=== PATIENT | female | born 1970 | race Caucasian/White ===

== ENCOUNTER 2016-03-25 05:55 | Observation (INO) | payer BC ==
[~2016-03-25] VITALS: Ht 165.1 cm; Wt 65.0 kg
[~2016-03-25 05:55] MED LIST: CHOL50006 PO; CLON1TAB PO; COPA20KI SQ; DIGO0.12 PO; EFFE150C PO; HYDR2TAB PO; LACT10SO27 PO; MIDO10TA PO
[2016-03-25 06:04] VITALS: BP 111/74; PULSE 71; RESP 16; TEMP 98; O2SAT 98
[2016-03-25] MEDS ORDERED: SODIUM CHLORIDE 0.9% FLUSH 5 ML FLUSH IVF PRN ×2 (06:30→11:00)
[2016-03-25] MEDS ORDERED: ASPIRIN 81 MG CHEW TAB PO ONE (06:30)
[2016-03-25] MEDS ORDERED: HYDROmorphone HCL PF 1 MG/ML VIAL IV PUSH ONE (06:30)
[2016-03-25 06:46] VITALS: BP_SYST 107; BP_SYST 111; BP_DIAS 69; BP_DIAS 73; RESP 16; O2SAT 99
[2016-03-25 06:49] LABS: AUTOMATED NEUTROPHIL # 1.5 TH/MM3 (1.8-7.7); BASOPHIL % 0.3 % (0.0-2.0); EOSINOPHIL # 0.3 TH/MM3 (0-0.4); EOSINOPHIL % 6.9 % (0.0-4.0); HEMATOCRIT 36.4 % (35.0-46.0); HEMO FLAGS DIFF FINAL; LYMPH % 40.5 % (9.0-44.0); LYMPHOCYTE # 1.5 TH/MM3 (1.0-4.8); MEAN CELL VOLUME 82.9 FL (80.0-100.0); MEAN CORPUSCULAR HEMOGLOBIN 28.2 PG (27.0-34.0); MONO % 12.2 % (0.0-8.0); NEUT % 40.1 % (16.0-70.0); PLATELET COUNT 139 TH/MM3 (150-450); RED BLOOD COUNT 4.39 MIL/MM3 (4.00-5.30); RED CELL DISTRIBUTION WIDTH 13.1 % (11.6-17.2); WHITE BLOOD COUNT 3.7 TH/MM3 (4.0-11.0)
[2016-03-25 06:58] LABS: APTT (PATIENT) 25.1 SEC (24.3-30.1); PROTHROMBIN TIME - PATIENT 10.7 SEC (9.8-11.6)
[2016-03-25 07:00] VITALS: BP 108/77; PULSE 69; RESP 16; O2SAT 96
[2016-03-25 07:05] LABS: ALT (GPT) 18 U/L (10-53); ANION GAP 5 MEQ/L (5-15); AST (GOT) 12 U/L (15-37); BLOOD UREA NITROGEN 14 MG/DL (7-18); CHLORIDE 108 MEQ/L (98-107); GLOMERULAR FILTRATION RATE 115 ML/MIN (>89); MAGNESIUM 2.2 MG/DL (1.5-2.5); POTASSIUM 3.7 MEQ/L (3.5-5.1); SODIUM (NA) 143 MEQ/L (136-145)
[2016-03-25 07:09] LABS: ALKALINE PHOSPHATASE 87 U/L (45-117); TOTAL BILIRUBIN ADULT 0.1 MG/DL (0.2-1.0)
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
--- NOTE | 2016-03-25 07:46 | RADRPT ---
EXAM DATE/TIME: 03/25/2016 07:27 [facility] COMPARISON: CHEST SINGLE AP, November 22, 2015, 5:18. INDICATIONS : Chest pains. MEDICAL HISTORY : Congestive heart failure. SURGICAL HISTORY : Cardiac pacer placed about 8 years ago. ENCOUNTER: Initial ACUITY: 1 day PAIN SCORE: 6/10 LOCATION: Bilateral chest FINDINGS: A single view of the chest demonstrates the lungs to be symmetrically aerated without evidence of mas s, infiltrate or effusion. The cardiomediastinal contours are unremarkable. Osseous structures are intact. Right subclavian transvenous pacer again noted with lead tips in the right atrium and right ventricul ar apex region, unchanged. CONCLUSION: No evidence of acute cardiopulmonary disease. Manjeet Whelan MD on March 25, 2016 at 7:44 Board Certified Radiologist. This report was verified electronically.
[2016-03-25] MEDS ORDERED: LOVA20TA PO (09:08)
[2016-03-25] MEDS ORDERED: PLAQ200T PO (09:08)
[2016-03-25] MEDS ORDERED: VITA50TA10 PO (09:08)
[2016-03-25] MEDS ORDERED: DIGOXIN 0.125 MG TAB PO SCH (10:30)
[2016-03-25] MEDS ORDERED: GLATIRAMER 20 MG SQ SCH (10:30)
[2016-03-25] MEDS ORDERED: HYDROmorphone HCL 2 MG TAB PO PRN (10:30)
--- NOTE | 2016-03-25 10:54 | EKG ---
Date Performed: 03/25/2016 Time Performed: 06:39:27 PTAGE: 45 years EKG: ELECTRONIC ATRIAL PACEMAKER POSSIBLE RIGHT VENTRICULAR CONDUCTION DELAY ABNORMAL RHYTHM ECG PREVIOUS TRACING : 11/22/2015 05.30 Compared to prior tracing no significant change DOCTOR: Anthony Louis Interpretating Date/Time 03/25/2016 10:52:54
[2016-03-25 11:00] VITALS: BP 110/68; PULSE 87; RESP 15; O2SAT 97
[2016-03-25] MEDS ORDERED: PRAVASTATIN SOD 20 MG TAB PO SCH (11:00)
[2016-03-25] MEDS ORDERED: HYDROmorphone HCL PF 1 MG/ML VIAL IV ONE (11:45)
[2016-03-25] MEDS ORDERED: SODIUM CHLORID 0.9% 500 ML INJ 500 ML IV SCH (11:45)
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
[2016-03-25] MEDS ORDERED: ONDANSETRON HCL 4 MG/2 ML VIAL IV PRN (12:00)
--- NOTE | 2016-03-25 12:16 | HHI.DCPOC ---
Discharge Care Plan Diagnosis: (1) Chest pain (2) Pacemaker (3) Multiple sclerosis Goals to Promote Your Health * To prevent worsening of your condition and complications * To maintain your health at the optimal level Directions to Meet Your Goals Take your medications as prescribed Follow your dietary instruction Follow activity as directed Keep your appointments as scheduled Take your immunizations and boosters as scheduled If your symptoms worsen call your PCP, if no PCP go to Urgent Care Center or Emergency Room Smoking is Dangerous to Your Health. Avoid second hand smoke Call the 24-hour hour crisis hotline for domestic abuse at Min Alvarenga Mar 25, 2016 12:16
[2016-03-25] MEDS ORDERED: MIDODRINE 5 MG TAB PO SCH (13:00)
--- NOTE | 2016-03-25 20:16 | EKG ---
Date Performed: 03/25/2016 Time Performed: 09:20:49 PTAGE: 45 years EKG: ATRIAL PACING Compared to prior tracing no significant change ABNORMAL RHYTHM ECG PREVIOUS TRACING : 03/25/2016 06.39 DOCTOR: Anthony Louis Interpretating Date/Time 03/25/2016 20:16:01
[2016-03-25] MEDS ORDERED: SODIUM CHLORIDE 0.9% FLUSH 5 ML FLUSH IVF SCH (21:00)
[2016-03-25] MEDS ORDERED: VENLAFAXINE HCL XR 75 MG CAP PO SCH (21:00)
[2016-03-25] MEDS ORDERED: clonazePAM 1 MG TAB PO SCH (21:00)
[2016-08-13] MEDS ORDERED: CYAN100025 SL (14:01)
[2016-08-13] MEDS ORDERED: D-20TAB3 PO (14:01)
[2016-08-13] MEDS ORDERED: FURO1TAB62 PO (14:01)
== END 2016-03-25 14:25 | disposition home or self-care (01) ==
LOC: NEPE 05:55 → NEDA 08:01
PROVIDERS: ADMIT Internal Medicine Cardiovascular Disease; ATTEND Internal Medicine Cardiovascular Disease
DX: R07.89 Other chest pain (principal); I48.91 Unspecified atrial fibrillation; I47.1 Supraventricular tachycardia; G35 Multiple sclerosis; E78.00 Pure hypercholesterolemia, unspecified; G40.909 Epilepsy, unspecified, not intractable, without status epilepticus; M54.9 Dorsalgia, unspecified; M54.2 Cervicalgia; G89.29 Other chronic pain; H91.90 Unspecified hearing loss, unspecified ear; K21.9 Gastro-esophageal reflux disease without esophagitis; M06.9 Rheumatoid arthritis, unspecified; Z85.43 Personal history of malignant neoplasm of ovary; Z95.0 Presence of cardiac pacemaker; Z86.73 Personal history of transient ischemic attack (TIA), and cerebral infarction without residual deficits; Z87.11 Personal history of peptic ulcer disease
CPT/HCPCS: 71010; 80053; 83690; 83735; 84484; 85025; 85610; 85730; 93005; 96374; 99285; G0378; J1170

== ENCOUNTER → 2016-05-06 | Outpatient (CLI) | payer OTHER ==
[~2016-05-06] MED LIST changes: +CYAN100025 SL; +D-20TAB3 PO; +FURO1TAB62 PO; +GABA600T PO; +LEVE500 PO; +LOVA20TA PO; +PLAQ200T PO; +VITA50TA10 PO
--- NOTE | 2016-05-06 17:30 | RADRPT ---
EXAM DATE/TIME: 05/06/2016 14:31 [facility] COMPARISON: No previous studies available for comparison. INDICATIONS : Left knee pain after fall. MEDICAL HISTORY : Carcinoma, ovarian. Multiple sclerosis. SURGICAL HISTORY : Pacemaker. Appendectomy. Hysterectomy. Cholecystectomy. ENCOUNTER: Initial ACUITY: 2 weeks PAIN SCORE: 3/10 LOCATION: Left knee. TECHNIQUE: Multiplanar, multisequence MRI examination was performed without contrast. FINDINGS: CRUCIATE LIGAMENTS: ACL and PCL are intact. MENISCI: Medial and lateral menisci are intact. COLLATERAL LIGAMENTS: MCL and LCL complexes are intact. BONE/CARTILAGE: There is focal T2 prolongation in the marrow of the anterior proximal tibia characteristic of a bone contusion. No fracture line seen. There is also focal thinning and T2 prolongation in the patellar cartilage of the lateral facet. No signal abnormality in the marrow of the patella. MISCELLANEOUS: No evidence of joint effusion. Extensor mechanism is intact. CONCLUSION: 1. Bone bruise in the proximal anterior tibia. 2. Focal cartilage abnormality lateral patellar facet. 3. The patellar tendon is normal in thickness and has normal signal characteristics. Eyal Kendall MD on May 06, 2016 at 17:16 Board Certified Radiologist. This report was verified electronically.
--- NOTE | 2016-05-06 17:34 | RADRPT ---
EXAM DATE/TIME: 05/06/2016 15:05 [facility] COMPARISON: No previous studies available for comparison. INDICATIONS : Left wrist pain after fall. Broken scaphoid. MEDICAL HISTORY : Carcinoma, ovarian. Multiple sclerosis. SURGICAL HISTORY : Pacemaker. Appendectomy. Hysterectomy. Cholecystectomy. ENCOUNTER: Initial ACUITY: 2 weeks PAIN SCORE: 3/10 LOCATION: Left wrist. TECHNIQUE: Multiplanar multisequence MRI examination of the wrist was performed without contrast. FINDINGS: The carpus is in normal alignment and there is normal signal in the carpal bones. In particular, no focal signal abnormality seen within the scaphoid. There is some fluid in the region of the scapholu fer ligament with some minimal widening suggesting scapholunate ligament tear. There is also a foca l fluid collection about the volar aspect of the distal radius suggesting focal tendinopathy. The di stal radius and Sugey have normal signal characteristics without evidence of fracture. No T2 prolonga tion within the carpal tunnel. CONCLUSION: 1. No evidence of carpal fracture. 2. Possible scapholunate ligament tear 3. Focal fluid along the distal volar radius suggesting tendinopathy. Eyal Kendall MD on May 06, 2016 at 17:28 Board Certified Radiologist. This report was verified electronically.
== END ==
LOC: HRAD 12:57
DX: M25.562 Pain in left knee (principal); M25.532 Pain in left wrist; W19.XXXA Unspecified fall, initial encounter
CPT/HCPCS: 73221; 73721

== ENCOUNTER 2016-06-06 13:44 | Inpatient (IN) | payer BC ==
[2016-06-06] VITALS (12 sets, daily range): BP systolic 98–160; BP diastolic 59–113; PULSE 69–86; RESP 16–18; TEMP 98–98.7; O2SAT 98–100
[~2016-06-06] VITALS: Ht 167.6 cm; Wt 66.1 kg
[~2016-06-06 13:44] MED LIST changes: -CYAN100025 SL; -D-20TAB3 PO; -FURO1TAB62 PO; -GABA600T PO; -LEVE500 PO
[2016-06-06] MEDS ORDERED: LORazepam 2 MG/ML VIAL ONE (13:51)
[2016-06-06] MEDS ORDERED: SUCCINYLCHOLINE CHLORIDE 200 MG/10 ML VIAL ONE (13:51)
[2016-06-06] MEDS ORDERED: SODIUM CHLOR 0.9% 1000 ML INJ 1,000 ML IV ONE ×2 (13:54→15:15)
[2016-06-06] MEDS ORDERED: levETIRAcetam INJ 500 MG in SODIUM CHLORIDE 0.9% INJ 100 ML IV ONE (14:00)
[2016-06-06] MEDS ORDERED: SODIUM CHLORIDE 0.9% FLUSH 10 ML FLUSH IVF PRN (14:00)
[2016-06-06] MEDS ORDERED: LORazepam 2 MG/ML VIAL IVS ONE (14:00)
[2016-06-06] MEDS ORDERED: PROPOFOL 1000 MG/100 ML INJ 100 ML ONE (14:01)
--- NOTE | 2016-06-06 14:19 | PD ---
HPI Chief Complaint: multiple seizures Time Seen by Provider: 13:53 Travel History International Travel<30 days: No Contact w/Intl Traveler<30days: No Traveled to known affect area: No History of Present Illness HPI 45-year-old female with history of seizures, MS, previous TIA, presents to the ER today brought in by EMS because her son states that they were hanging a picture when she complained of chest pain, collapsed, had a seizure, and according to EMS had 2 additional seizures in route, had been given a total 4 of Ativan en route. She had a witnessed seizure in the ER and was given additional Ativan. She was found to have allergies to Tegretol, phenobarbital, and Dilantin and was put in for a Keppra IV bolus. She was found not to have a gag reflex at this point and was an awake, patient was intubated for airway protection. Modifying Factors: None Associated Signs & Symptoms: Multiple seizures, status epilepticus, intubated Risk Factors: History of seizures PFSH Past Medical History Hx Anticoagulant Therapy: No Anemia: Yes Arthritis: No Asthma: No Atrial Fibrillation: Yes Autoimmune Disease: Yes (MS 2006/ has undergone plasma exchange therapy) Blood Disorders: No Anxiety: Yes Depression: Yes Heart Rhythm Problems: Yes (severe bradicardia, pacer placed/ vagal nerve dysfunction/) Cancer: Yes (uterine and ovarian) Cardiac Catheterization: No Cardiovascular Problems: Yes High Cholesterol: Yes Chemotherapy: No Chest Pain: No Congestive Heart Failure: Yes COPD: No Cerebrovascular Accident: Yes Diabetes: No Diminished Hearing: Yes (HEARING AIDS) Endocrine: No GERD: Yes Glaucoma: No Genitourinary: Yes Headaches: Yes Hepatitis: No Hiatal Hernia: No Hypertension: No Immune Disorder: Yes (MS) Implanted Vascular Access Dvce: Yes (PACEMAKER,MEDTRONIC ) Kidney Stones: No Musculoskeletal: Yes (chronic neck and back pain) Neurologic: Yes (HX OF SEIZURES, MS, TIA) Psychiatric: Yes (DEPRESSION) Reproductive: Yes (ENDOMETRIOSIS ) Respiratory: Yes (RESP FAILURE) Immunizations Current: Yes Migraines: Yes Myocardial Infarction: No Renal Failure: No Seizures: Yes ( A CHILD, RESOLVED) Sickle Cell Disease: No Sleep Apnea: No Thyroid Disease: No Ulcer: No Menopausal: Yes : 3 Para: 3 Miscarriage: 0 : 0 Ovarian Cysts: Yes Tubal Ligation: Yes Past Surgical History Abdominal Surgery: Yes AICD: No Appendectomy: Yes Arteriovenous Shunt: No Cardiac Surgery: Yes (PACEMAKER 2011 multiple sclerosis complications, vagal nerve dysfn.) Section: Yes Cholecystectomy: Yes Coronary Artery Bypass Graft: No Ear Surgery: No Endocrine Surgery: No Eye Surgery: No Genitourinary Surgery: No Gynecologic Surgery: Yes (ENDOMETRIOSIS) Hysterectomy: Yes Insulin Pump: No Joint Replacement: No Neurologic Surgery: No Oral Surgery: No Pacemaker: Yes (UNKNOWN ) Thoracic Surgery: No Other Surgery: Yes (, REMOVAL OF GALLBLADDER) Social History Alcohol Use: No Tobacco Use: No Substance Use: No Allergies-Medications (Allergen,Severity, Reaction): Coded Allergies: Adhesives (Verified Allergy, Severe, MAKES MY SKIN BLEED, 03/25/16) Codeine (Verified Allergy, Severe, SEIZURE, 03/25/16) Darvon (Verified Allergy, Severe, SWELLING OF THE THROAT, 03/25/16) Demerol (Verified Allergy, Severe, anaphylactic shock, 03/25/16) Dilantin (Verified Allergy, Severe, HIVES, 03/25/16) Iodine (Verified Allergy, Severe, Anaphylaxis, 03/25/16) Latex (Verified Allergy, Severe, HIVES, 03/25/16) Percocet (Verified Allergy, Severe, HIVES, 03/25/16) Phenobarbital (Verified Allergy, Severe, hives, 03/25/16) Seafood (Verified Allergy, Severe, including all shell fish causes anaphylactic, 03/25/16) Shellfish (Verified Allergy, Severe, 03/25/16) Sulfa (Verified Allergy, Severe, hives, 03/25/16) Tegretol (Verified Allergy, Severe, cardiac arrest, 03/25/16) Reported Meds & Prescriptions Reported Meds & Active Scripts Active Reported Vitamin B-12 (Cyanocobalamin) Unknown Strength Tab 1 Tab PO DAILY Plaquenil (Hydroxychloroquine Sulfate) 200 Mg Tab 200 Mg PO DAILY Take with food Lovastatin 20 Mg Tab 20 Mg PO DAILY Midodrine 10 Mg Tab 10 Mg PO TID Hydromorphone (Hydromorphone HCl) 2 Mg Tab 2 Mg PO Q4H PRN Vitamin D (Cholecalciferol) 5,000 Unit Tab 5,000 Units PO DAILY Lactulose Liq (Lactulose (Encephalopathy) Liq) 19 Gm/15 Ml Soln 15 Ml PO DAILY Digoxin 0.125 Mg Tab 0.125 Mg PO DAILY Effexor XR 24 HR (Venlafaxine HCl) 150 Mg Cap 150 Mg PO BID Clonazepam 1 Mg Tab 1 Mg PO BID Copaxone Inj (Glatiramer Inj) 20 Mg/Ml Syr 20 Mg SQ DAILY Review of Systems ROS Limitations: Altered Mental Status Physical Exam Narrative GENERAL: Middle age white female who is obtunded, not awaking with painful stimuli. SKIN: Focused skin assessment warm/dry. HEAD: Atraumatic. Normocephalic. EYES: Pupils equal and round. No scleral icterus. No injection or drainage. Pupils are equal, round, small, poorly reactive to light bilaterally. ENT: No nasal bleeding or discharge. Mucous membranes pink and moist. NECK: Trachea midline. No JVD. CARDIOVASCULAR: Regular rate and rhythm. No murmur appreciated. Pulses are present and equal bilaterally. RESPIRATORY: No accessory muscle use. Clear to auscultation. Breath sounds equal bilaterally. GASTROINTESTINAL: Abdomen soft, non-tender, nondistended. Hepatic and splenic margins not palpable. MUSCULOSKELETAL: No obvious deformities. No clubbing. No cyanosis. No edema. NEUROLOGICAL: Awake and alert. No obvious cranial nerve deficits. Motor grossly within normal limits. Normal speech. PSYCHIATRIC: Appropriate mood and affect; insight and judgment normal. Data Data Last Documented VS Vital Signs Date Time Temp Pulse Resp B/P Pulse Ox O2 Delivery O2 Flow Rate FiO2 06/06/16 14:14 18 100 Ventilator 06/06/16 14:14 83 06/06/16 14:06 160/113 Orders Lorazepam Inj (Ativan Inj) (06/06/16 13:51) Succinylcholine Inj (Quelicin Inj) (06/06/16 13:51) Levetiracetam Inj (Keppra Inj) (06/06/16 14:00) Complete Blood Count With Diff (06/06/16 13:54) Drug Screen, Random Urine (06/06/16 13:54) Electrocardiogram (06/06/16 ) Blood Glucose (06/06/16 13:54) Ecg Monitoring (06/06/16 13:54) Iv Access Insert/Monitor (06/06/16 13:54) Oximetry (06/06/16 13:54) Urinary Catheter Insert/Apply (06/06/16 13:54) Comprehensive Metabolic Panel (06/06/16 13:54) Sodium Chlor 0.9% 1000 Ml Inj (Ns 1000 M (06/06/16 13:54) Sodium Chloride 0.9% Flush (Ns Flush) (06/06/16 14:00) Lorazepam Inj (Ativan Inj) (06/06/16 14:00) Propofol 1000 Mg/100 Ml Inj (Diprivan 10 (06/06/16 14:01) Chest, Single Ap (06/06/16 14:01) Sodium Chlor 0.9% 1000 Ml Inj (Ns 1000 M (06/06/16 15:15) Admit Order (Ed Use Only) (06/06/16 15:27) Portable Eeg (06/06/16 ) Consult Neurology (06/06/16 ) Levetiracetam 1000 Mg Inj (Keppra 1000 M (06/06/16 21:00) ^ Medication Admin Instruction (06/06/16 15:26) ^ Notify Dr: Other (06/06/16 15:26) Phosphorus (Po4) (06/06/16 15:26) Magnesium (Mg) (06/06/16 15:26) Potassium Chlor 40 Meq Premix (Kcl 40 Me (06/06/16 15:30) Potassium Chlor 20 Meq Premix (Kcl 20 Me (06/06/16 15:30) Potassium Chlor 40 Meq Premix (Kcl 40 Me (06/06/16 15:30) Potassium Chlor 20 Meq Premix (Kcl 20 Me (06/06/16 15:30) Magnesium Sulfate Inj (Magnesium Sulfate (06/06/16 15:30) Magnesium Oxide (Mag-Ox) (06/06/16 15:30) Magnesium Sulfate Inj (Magnesium Sulfate (06/06/16 15:30) Potassium Phosphate (K-Phos) (06/06/16 15:30) Sodium Phosphate Inj (Sodium Phosphate I (06/06/16 15:30) Potassium Phosphate (K-Phos) (06/06/16 15:30) Potassium Phosphate Inj (Potassium Phosp (06/06/16 15:30) Magnesium (Mg) (06/06/16 15:29) Labs Laboratory Tests Test 06/06/16 14:50 White Blood Count 3.2 TH/MM3 Red Blood Count 4.33 MIL/MM3 Hemoglobin 12.2 GM/DL Hematocrit 35.5 % Mean Corpuscular Volume 82.1 FL Mean Corpuscular Hemoglobin 28.3 PG Mean Corpuscular Hemoglobin 34.4 % Concent Red Cell Distribution Width 13.0 % Platelet Count 160 TH/MM3 Mean Platelet Volume 9.2 FL Neutrophils (%) (Auto) 58.5 % Lymphocytes (%) (Auto) 25.2 % Monocytes (%) (Auto) 12.7 % Eosinophils (%) (Auto) 3.0 % Basophils (%) (Auto) 0.6 % Neutrophils # (Auto) 1.9 TH/MM3 Lymphocytes # (Auto) 0.8 TH/MM3 Monocytes # (Auto) 0.4 TH/MM3 Eosinophils # (Auto) 0.1 TH/MM3 Basophils # (Auto) 0.0 TH/MM3 CBC Comment DIFF FINAL Differential Comment Sodium Level 142 MEQ/L Potassium Level 3.9 MEQ/L Chloride Level 108 MEQ/L Carbon Dioxide Level 27.2 MEQ/L Anion Gap 7 MEQ/L Blood Urea Nitrogen 17 MG/DL Creatinine 0.55 MG/DL Estimat Glomerular Filtration 120 ML/MIN Rate Random Glucose 100 MG/DL Calcium Level 8.9 MG/DL Total Bilirubin 0.4 MG/DL Aspartate Amino Transf 14 U/L (AST/SGOT) Alanine Aminotransferase 18 U/L (ALT/SGPT) Alkaline Phosphatase 79 U/L Total Protein 6.5 GM/DL Albumin 3.7 GM/DL Urine Opiates Screen NEG Urine Barbiturates Screen NEG Urine Amphetamines Screen NEG Urine Benzodiazepines Screen NEG Urine Cocaine Screen NEG Urine Cannabinoids Screen NEG MDM Medical Decision Making Medical Screen Exam Complete: Yes Emergency Medical Condition: Yes Medical Record Reviewed: Yes Interpretation(s) Laboratory Tests Test 06/06/16 14:50 White Blood Count 3.2 TH/MM3 (4.0-11.0) Monocytes (%) (Auto) 12.7 % (0.0-8.0) Lymphocytes # (Auto) 0.8 TH/MM3 (1.0-4.8) Chloride Level 108 MEQ/L (98-107) Aspartate Amino Transf 14 U/L (15-37) (AST/SGOT) Differential Diagnosis Altered mental status, multiple seizuresstatus epilepticus versus metabolic issues versus acute intracranial processes Narrative Course Patient was intubated for airway protection. Chest x-ray was done which shows ET tube in place. After intubation, patient was restrained, and started to move. She was given sedation at this point until she can be assessed further. Patient had a total of 6 mg of IV Ativan in the ER and considering her seizures are continuing, Keppra IV was also ordered. Lab work and CAT scan ordered. Case was then discussed with Dr. Bruroughs for admission for further evaluation. Aggregate critical care time was 30 minutes. Time to perform other separately billable procedures was not included in the critical care time. My time did not include minutes spent treating any other patients simultaneously or on activities that did not directly contribute to the patient's treatment. The services I provided to this patient were to treat and/or prevent clinically significant deterioration that could result in: Continuous seizures, status epilepticus, I provided critical care services requiring my management, as noted below: Chart data review, documentation time, medication orders and management, vital sign assessments/reviewing monitor data, ordering and reviewing lab tests, ordering and interpreting/reviewing x-rays and diagnostic studies, care of the patient and discussion of the patient with the admitting physicians. Procedures Procedure Narrative Patient is obtunded with no gag reflex the following procedure was performed for airway protection: INTUBATION: The patient was put in optimal position for the procedure. Rapid sequence intubation was initiated by me using 100 milligrams of succinylcholine IV. The patient was intubated with a 7.5 cuffed endotracheal tube. Tube placement was confirmed by visualization of the tube and balloon passing through the cords, capnometry and subsequent chest x-ray. Breath sounds were equal and well aerated bilaterally postintubation. No breath sounds over stomach. Patient tolerated procedure well. Diagnosis Primary Impression: Status epilepticus Additional Impression: Endotracheally intubated Admitting Information Admitting Physician Requests: Graham Balderas MD Jun 06, 2016 14:19
[2016-06-06 15:13] LABS: AUTOMATED NEUTROPHIL # 1.9 TH/MM3 (1.8-7.7); BASOPHIL % 0.6 % (0.0-2.0); EOSINOPHIL # 0.1 TH/MM3 (0-0.4); HEMATOCRIT 35.5 % (35.0-46.0); HEMO FLAGS DIFF FINAL; LYMPH % 25.2 % (9.0-44.0); LYMPHOCYTE # 0.8 TH/MM3 (1.0-4.8); MEAN CELL VOLUME 82.1 FL (80.0-100.0); MEAN CORPUSCULAR HEMOGLOBIN 28.3 PG (27.0-34.0); MEAN CORPUSCULAR HGB CONC 34.4 % (32.0-36.0); MONO % 12.7 % (0.0-8.0); NEUT % 58.5 % (16.0-70.0); PLATELET COUNT 160 TH/MM3 (150-450); RED BLOOD COUNT 4.33 MIL/MM3 (4.00-5.30); WHITE BLOOD COUNT 3.2 TH/MM3 (4.0-11.0)
[2016-06-06 15:26] LABS: ANION GAP 7 MEQ/L (5-15); AST (GOT) 14 U/L (15-37); BICARBONATE 27.2 MEQ/L (21.0-32.0); BLOOD UREA NITROGEN 17 MG/DL (7-18); CHLORIDE 108 MEQ/L (98-107); GLOMERULAR FILTRATION RATE 120 ML/MIN (>89); POTASSIUM 3.9 MEQ/L (3.5-5.1); SODIUM (NA) 142 MEQ/L (136-145)
[2016-06-06 15:28] LABS: BARBITURATES, URINE NEG (NEG)
[2016-06-06 15:29] LABS: AMPHETAMINE, URINE NEG (NEG); COCAINE, URINE NEG (NEG)
[2016-06-06 15:30] LABS: ALKALINE PHOSPHATASE 79 U/L (45-117); ALT (GPT) 18 U/L (10-53); TOTAL BILIRUBIN ADULT 0.4 MG/DL (0.2-1.0)
[2016-06-06] MEDS ORDERED: SODIUM PHOSPHATE INJ 30 MMOL in SODIUM CHLOR 0.9% 250 ML INJ 240 ML IV PRN (15:30)
[2016-06-06] MEDS ORDERED: MAGNESIUM SULFATE INJ 4 GM in SODIUM CHLORIDE 0.9% INJ 92 ML IV PRN (15:30)
[2016-06-06] MEDS ORDERED: MIDAZOLAM 100 MG/ML INJ 100 ML IV SCH (15:30)
[2016-06-06] MEDS ORDERED: POTASSIUM PHOSPHATE INJ 30 MMOL in SODIUM CHLOR 0.9% 250 ML INJ 250 ML IV PRN (15:30)
[2016-06-06] MEDS ORDERED: POTASSIUM CHLOR 20 MEQ PREMIX 100 ML IV PRN (15:30)
[2016-06-06] MEDS ORDERED: POTASSIUM PHOSPHATE MONOBASIC 500 MG TAB PO/TUBE PRN (15:30)
[2016-06-06] MEDS ORDERED: RESP: ALBUTEROL 2.5 MG/3 ML NEB (PRN) INH (15:30)
[2016-06-06] MEDS ORDERED: MAGNESIUM SULFATE INJ 2 GM in SODIUM CHLORIDE 0.9% INJ 96 ML IV PRN (15:30)
[2016-06-06] MEDS ORDERED: POTASSIUM PHOSPHATE MONOBASIC 500 MG TAB PO PRN (15:30)
[2016-06-06] MEDS ORDERED: CHLORHEXIDINE GLUCONATE 2 % 1 PACK (2 CLOTHS) TOP PRN (15:30)
[2016-06-06] MEDS ORDERED: MISCELLANEOUS NURSING INFORMATION XX SCH (15:30)
[2016-06-06] MEDS ORDERED: POTASSIUM CHLOR 40 MEQ PREMIX 100 ML IV PRN ×2 (15:30)
[2016-06-06] MEDS ORDERED: MAGNESIUM OXIDE 400 MG TAB PO PRN (15:30)
--- NOTE | 2016-06-06 15:53 | HHI.HP ---
HPI Service Critical Care Medicine Primary Care Physician Tony Bettencourt M.D. Admission Diagnosis status epilepticus/intubated Diagnosis: (1) Status epilepticus Diagnosis: Principal (2) Acute respiratory failure Diagnosis: Principal (3) Acute encephalopathy Diagnosis: Principal (4) Multiple sclerosis Diagnosis: Secondary (5) hx TIA/CVA Diagnosis: Secondary (6) Seizure disorder Diagnosis: Secondary (7) Pacemaker Diagnosis: Secondary Chief Complaint: Status epilepticus Respiratory failure Travel History International Travel<30 Days: No Contact w/Intl Traveler <30 Da: No Traveled to Known Affected Are: No History of Present Illness Patient is a 45-year-old female with history of seizures, MS, previous TIA, rheumatoid arthritis who presented to the ER today brought in by EMS after sustaining witnessed seizures. Per EMS her son stated that they were hanging a picture when she developed chest pain, collapsed, had a seizure. Patient was postictal when EMS arrived and en route had 2 additional seizures in route, he was given Ativan 2 mg IV 2 ,total 4 of Ativan en route. She had a witnessed seizure in the ER and was given additional 2m IV Ativan. Patient did not regain consciousness between seizures. She was found not to have a gag reflex and was intubated for airway protection. Patient was also loaded with 1 g of Keppra I evaluated the patient in the ED. Patient is sedated with propofol on lightening sedation moves all extremities do not follow commands. CT of the head is pending at this time a stat EEG had been ordered. I will continue Keppra 1 g IV every 12 hours. Urine drug screen is negative, a magnesium level is pending at this time. I have ordered an EKG and cardiac enzymes also Review of Systems ROS Limitations: Intubated Past Family Social History Allergies: Coded Allergies: Adhesives (Verified Allergy, Severe, MAKES MY SKIN BLEED, 03/25/16) Codeine (Verified Allergy, Severe, SEIZURE, 03/25/16) Darvon (Verified Allergy, Severe, SWELLING OF THE THROAT, 03/25/16) Demerol (Verified Allergy, Severe, anaphylactic shock, 03/25/16) Dilantin (Verified Allergy, Severe, HIVES, 03/25/16) Iodine (Verified Allergy, Severe, Anaphylaxis, 03/25/16) Latex (Verified Allergy, Severe, HIVES, 03/25/16) Percocet (Verified Allergy, Severe, HIVES, 03/25/16) Phenobarbital (Verified Allergy, Severe, hives, 03/25/16) Seafood (Verified Allergy, Severe, including all shell fish causes anaphylactic, 03/25/16) Shellfish (Verified Allergy, Severe, 03/25/16) Sulfa (Verified Allergy, Severe, hives, 03/25/16) Tegretol (Verified Allergy, Severe, cardiac arrest, 03/25/16) Past Medical History Multiple sclerosis Seizure disorder History of SVT History of CVA/TIA Placement replacement in 2010 for severe bradycardia History of uterine and ovarian cancer per previous notes Rheumatoid arthritis Peripheral neuropathy Past Surgical History Pacemaker placement in 2010 Appendectomy TIFFANIE BSO Cholecystectomy Removal of ovarian tumor Reported Medications Plaquenil (Hydroxychloroquine Sulfate) 200 Mg Tab 200 Mg PO DAILY Lovastatin 20 Mg Tab 20 Mg PO DAILY Midodrine 10 Mg Tab 10 Mg PO TID Hydromorphone (Hydromorphone HCl) 2 Mg Tab 2 Mg PO Q4H PRN Vitamin D (Cholecalciferol) 5,000 Unit Tab 5,000 Units PO DAILY Lactulose Liq (Lactulose (Encephalopathy) Liq) 19 Gm/15 Ml Soln 15 Ml PO DAILY Digoxin 0.125 Mg Tab 0.125 Mg PO DAILY Effexor XR 24 HR (Venlafaxine HCl) 150 Mg Cap 150 Mg PO BID Clonazepam 1 Mg Tab 1 Mg PO BID Copaxone Inj (Glatiramer Inj) 20 Mg/Ml Syr 20 Mg SQ DAILY Active Ordered Medications Reviewed Family History History of coronary artery diseases in mother, father has history of [place]'s disease Social History Previously with aggressive respiratory therapist, now disabled. No alcohol or tobacco use Physical Exam Vital Signs Vital Signs Date Time Temp Pulse Resp B/P Pulse Ox O2 Delivery O2 Flow Rate FiO2 06/06/16 14:14 18 100 Ventilator 06/06/16 14:14 83 20 100 Ventilator 06/06/16 14:06 86 18 160/113 98 Physical Exam GENERAL: 45 year old white female who is intubated sedated with propofol SKIN: Warm and dry HEAD: Atraumatic. Normocephalic. EYES: Pupils equal and round, reactive ENT: No nasal bleeding or discharge. Orotracheally intubated NECK: Trachea midline. No JVD. CARDIOVASCULAR: Regular rate and rhythm. No murmur appreciated. Right upper chest pacemaker in place RESPIRATORY: Clear to auscultation. Breath sounds equal bilaterally. GASTROINTESTINAL: Abdomen soft, non-tender, nondistended. Hepatic and splenic margins not palpable. MUSCULOSKELETAL: No obvious deformities. No clubbing. No cyanosis. No edema. NEUROLOGICAL: MELVIN. Intubated sedated with propofol. Moves extremities on sedation hold. Do not follow commands Laboratory Laboratory Tests Test 06/06/16 14:50 White Blood Count 3.2 Red Blood Count 4.33 Hemoglobin 12.2 Hematocrit 35.5 Mean Corpuscular Volume 82.1 Mean Corpuscular Hemoglobin 28.3 Mean Corpuscular Hemoglobin 34.4 Concent Red Cell Distribution Width 13.0 Platelet Count 160 Mean Platelet Volume 9.2 Neutrophils (%) (Auto) 58.5 Lymphocytes (%) (Auto) 25.2 Monocytes (%) (Auto) 12.7 Eosinophils (%) (Auto) 3.0 Basophils (%) (Auto) 0.6 Neutrophils # (Auto) 1.9 Lymphocytes # (Auto) 0.8 Monocytes # (Auto) 0.4 Eosinophils # (Auto) 0.1 Basophils # (Auto) 0.0 CBC Comment DIFF FINAL Differential Comment Sodium Level 142 Potassium Level 3.9 Chloride Level 108 Carbon Dioxide Level 27.2 Anion Gap 7 Blood Urea Nitrogen 17 Creatinine 0.55 Estimat Glomerular Filtration 120 Rate Random Glucose 100 Calcium Level 8.9 Total Bilirubin 0.4 Aspartate Amino Transf 14 (AST/SGOT) Alanine Aminotransferase 18 (ALT/SGPT) Alkaline Phosphatase 79 Total Protein 6.5 Albumin 3.7 Urine Opiates Screen NEG Urine Barbiturates Screen NEG Urine Amphetamines Screen NEG Urine Benzodiazepines Screen NEG Urine Cocaine Screen NEG Urine Cannabinoids Screen NEG Result Diagram: 06/06/16 1450 06/06/[address] head pending CXR No acute infiltrate Assessment and Plan Assessment and Plan NEURO: Status epilepticus History of seizure disorder History of multiple sclerosis -Patient was loaded with 1 g of Keppra, will continue Keppra 1 g IV every 12 -Neurology consult, stat EEG -Propofol and Versed for sedation and ventilator synchrony and seizure control -Continue Copaxone for MS RESP: Acute respiratory failure -Intubated for airway protection during status epilepticus -ACV. DuoNeb every 6 hours scheduled and when necessary, ventilator bundle -Elevate head of the bed the 30 -Weaning trials once seizures are controlled CV: Hypotension most likely sedation induced History of pacemaker placement for severe bradycardia Chest pain r/o ACS -Normal saline IV fluids 2L bolus and 84 ml per hour -Patient had chest pain rule out ACS No arrhythmia's reported by EMS -Cycle troponin, CK-MB. Check lactic acid -Continue statins GI: -Nothing by mouth, IV Protonix : -Monitor renal function closely. Alfaro catheter. ID: -Monitor for infection. No antibiotics at this time HEME: -Monitor CBC, CMP, coags ENDO: -Electrolyte replacement per protocol. PROPH: -Bilateral lower extremity SCDs. IV Protonix for GI prophylaxis. Lovenox for DVT prophylaxis if CT of the head is negative LINES: -Utilize peripheral IVs, central line if needed CC time 45 min Code Status Full Discussed Condition With ER Lucinda Bynum Dr., MD Jun 06, 2016 15:53
[2016-06-06] MEDS: ENOXAPARIN SODIUM 40 MG/0.4 ML SYRINGE SQ SCH (16:00)
--- NOTE | 2016-06-06 16:19 | RADRPT ---
EXAM DATE/TIME: 06/06/2016 15:26 [facility] COMPARISON: CHEST SINGLE AP, March 25, 2016, 7:27. INDICATIONS : Post intubation MEDICAL HISTORY : Congestive heart failure. SURGICAL HISTORY : Pacemaker. ENCOUNTER: Initial ACUITY: 1 day PAIN SCORE: Non-responsive. LOCATION: Bilateral chest FINDINGS: A single view of the chest demonstrates endotracheal tube tip in satisfactory position. NG enters sto mach. Pacer leads overlie right atrium and right ventricle. Minimal basilar density likely atelectasi s. No effusion. No pneumothorax. CONCLUSION: 1. Support apparatus in satisfactory position. Minimal basilar atelectasis. Quintin Martinez MD on June 06, 2016 at 16:16 Board Certified Radiologist. This report was verified electronically.
[2016-06-06] MEDS: RESP: ALBUTEROL 2.5 MG/IPRATROPIUM 0.5 MG NEB (SCH) NEB ×2 (16:50→20:20)
--- NOTE | 2016-06-06 17:22 | RADRPT ---
EXAM DATE/TIME: 06/06/2016 16:19 [facility] COMPARISON: CT BRAIN W/O CONTRAST, November 22, 2015, 6:34. INDICATIONS : Altered mental status; seizures. RADIATION DOSE: 56.35 CTDIvol (mGy) MEDICAL HISTORY : Seizures. Hypertension. Multiple sclerosis.Uterine and ovarian cancer. SURGICAL HISTORY : None. ENCOUNTER: Initial ACUITY: 1 day PAIN SCALE: Non-responsive LOCATION: cranial TECHNIQUE: Multiple contiguous axial images were obtained of the head. Using automated exposure control and adj ustment of the mA and/or kV according to patient size, radiation dose was kept as low as reasonably a chievable to obtain optimal diagnostic quality images. FINDINGS: CEREBRUM: The ventricles are normal for age. No evidence of midline shift, mass lesion, hemorrhage or acute in farction. No extra-axial fluid collections are seen. POSTERIOR FOSSA: The cerebellum and brainstem are intact. The 4th ventricle is midline. The cerebellopontine angle i s unremarkable. EXTRACRANIAL: The visualized portion of the orbits is intact. SKULL: The calvaria is intact. No evidence of skull fracture. CONCLUSION: Normal examination for a patient of this age. No significant change has occurred. Quintin Martinez MD on June 06, 2016 at 17:19 Board Certified Radiologist. This report was verified electronically.
[2016-06-06 17:34] LABS: MAGNESIUM 2.2 MG/DL (1.5-2.5)
[2016-06-06] MEDS: LORazepam 2 MG/ML VIAL IV PUSH PRN (17:47)
[2016-06-06 18:05] LABS: CREATINE KINASE 137 U/L (26-192)
[2016-06-06 18:17] LABS: CKMB 1.8 NG/ML (0.5-3.6)
[2016-06-06] MEDS: levETIRAcetam 1000 MG INJ 100 ML IV SCH (20:14)
[2016-06-06] MEDS: CHLORHEXIDINE 0.12% (ORAL KIT) 15 ML CUP MT SCH (20:14)
[2016-06-06] MEDS: PROPOFOL 1000 MG/100 ML INJ 100 ML IV SCH (20:38)
[2016-06-06 23:50] LABS: CREATINE KINASE 161 U/L (26-192)
[2016-06-07] VITALS (17 sets, daily range): BP systolic 80–102; BP diastolic 62–70; PULSE 73–123; RESP 16–30; TEMP 97.3–99.4; O2SAT 95–100
[2016-06-07 00:03] LABS: CKMB 1.4 NG/ML (0.5-3.6)
[2016-06-07] MEDS: PROPOFOL 1000 MG/100 ML INJ 100 ML IV SCH ×2 (00:33→06:04)
[2016-06-07] MEDS: RESP: ALBUTEROL 2.5 MG/IPRATROPIUM 0.5 MG NEB (SCH) NEB ×4 (03:45→20:13)
[2016-06-07] MEDS ORDERED: CHLORHEXIDINE GLUCONATE 2 % 1 PACK (2 CLOTHS) TOP SCH (04:00)
[2016-06-07 05:09] LABS: AUTOMATED NEUTROPHIL # 4.5 TH/MM3 (1.8-7.7); BASOPHIL % 0.2 % (0.0-2.0); EOSINOPHIL # 0.1 TH/MM3 (0-0.4); EOSINOPHIL % 1.3 % (0.0-4.0); HEMATOCRIT 38.8 % (35.0-46.0); HEMO FLAGS DIFF FINAL; LYMPH % 20.8 % (9.0-44.0); LYMPHOCYTE # 1.4 TH/MM3 (1.0-4.8); MEAN CELL VOLUME 82.9 FL (80.0-100.0); MEAN CORPUSCULAR HEMOGLOBIN 28.5 PG (27.0-34.0); MEAN CORPUSCULAR HGB CONC 34.4 % (32.0-36.0); MONO % 13.3 % (0.0-8.0); NEUT % 64.4 % (16.0-70.0); PLATELET COUNT 151 TH/MM3 (150-450); RED BLOOD COUNT 4.68 MIL/MM3 (4.00-5.30); WHITE BLOOD COUNT 6.9 TH/MM3 (4.0-11.0)
[2016-06-07 05:28] LABS: ALKALINE PHOSPHATASE 88 U/L (45-117); ALT (GPT) 18 U/L (10-53); ANION GAP 12 MEQ/L (5-15); AST (GOT) 23 U/L (15-37); BICARBONATE 21.9 MEQ/L (21.0-32.0); BLOOD UREA NITROGEN 12 MG/DL (7-18); CHLORIDE 110 MEQ/L (98-107); CREATINE KINASE 176 U/L (26-192); GLOMERULAR FILTRATION RATE 107 ML/MIN (>89); MAGNESIUM 2.2 MG/DL (1.5-2.5); POTASSIUM 3.4 MEQ/L (3.5-5.1); SODIUM (NA) 144 MEQ/L (136-145); TOTAL BILIRUBIN ADULT 0.4 MG/DL (0.2-1.0)
[2016-06-07 05:40] LABS: CKMB 0.7 NG/ML (0.5-3.6)
[2016-06-07] MEDS: POTASSIUM CHLOR 20 MEQ PREMIX 100 ML IV PRN ×2 (06:04→08:27)
--- NOTE | 2016-06-07 07:44 | PD.CONS ---
History of Present Illness Service Neurology Consult Requested By [facility] Reason for Consult sz Primary Care Physician Tony Bettencourt M.D. History of Present Illness 45-year-old female who presented to the ER today brought in by EMS after witnessed seizures. hx per medical chart review. Per EMS her son stated that they were hanging a picture when she developed chest pain, collapsed, had a seizure. Patient was postictal when EMS arrived and en route had 2 additional seizures in route, he was given Ativan 2 mg IV 2 ,total 4 of Ativan en route. She had a witnessed seizure in the ER and was given additional 2m IV Ativan. For airway protection pt was intubated. uds negative. glucose 100. na/mag/calcium nml. no fever. ct brain ml numerous admissions here and at other local hospitals. Review of Systems ROS Limitations: Intubated Past Family Social History Allergies: Coded Allergies: Adhesives (Verified Allergy, Severe, MAKES MY SKIN BLEED, 03/25/16) Codeine (Verified Allergy, Severe, SEIZURE, 03/25/16) Darvon (Verified Allergy, Severe, SWELLING OF THE THROAT, 03/25/16) Demerol (Verified Allergy, Severe, anaphylactic shock, 03/25/16) Dilantin (Verified Allergy, Severe, HIVES, 03/25/16) Iodine (Verified Allergy, Severe, Anaphylaxis, 03/25/16) Latex (Verified Allergy, Severe, HIVES, 03/25/16) Percocet (Verified Allergy, Severe, HIVES, 03/25/16) Phenobarbital (Verified Allergy, Severe, hives, 03/25/16) Seafood (Verified Allergy, Severe, including all shell fish causes anaphylactic, 03/25/16) Shellfish (Verified Allergy, Severe, 03/25/16) Sulfa (Verified Allergy, Severe, hives, 03/25/16) Tegretol (Verified Allergy, Severe, cardiac arrest, 03/25/16) Past Medical History Multiple sclerosis Seizure disorder History of SVT Placement replacement in 2010 for severe bradycardia History of uterine and ovarian cancer per previous notes Rheumatoid arthritis Peripheral neuropathy Past Surgical History Pacemaker placement in 2010 Appendectomy TIFFANIE BSO Cholecystectomy Removal of ovarian tumor Active Ordered Medications Reviewed Family History History of coronary artery diseases in mother, father has history of Antoine's disease Social History No alcohol or tobacco use Review of Systems All other ROS: Unable to obtain Past Family Social History Allergies: Coded Allergies: Adhesives (Verified Allergy, Severe, MAKES MY SKIN BLEED, 03/25/16) Codeine (Verified Allergy, Severe, SEIZURE, 03/25/16) Darvon (Verified Allergy, Severe, SWELLING OF THE THROAT, 03/25/16) Demerol (Verified Allergy, Severe, anaphylactic shock, 03/25/16) Dilantin (Verified Allergy, Severe, HIVES, 03/25/16) Iodine (Verified Allergy, Severe, Anaphylaxis, 03/25/16) Latex (Verified Allergy, Severe, HIVES, 03/25/16) Percocet (Verified Allergy, Severe, HIVES, 03/25/16) Phenobarbital (Verified Allergy, Severe, hives, 03/25/16) Seafood (Verified Allergy, Severe, including all shell fish causes anaphylactic, 03/25/16) Shellfish (Verified Allergy, Severe, 03/25/16) Sulfa (Verified Allergy, Severe, hives, 03/25/16) Tegretol (Verified Allergy, Severe, cardiac arrest, 03/25/16) Active Ordered Medications Current Medications Medications (Trade) Dose Ordered Sig/Elver Route Start Time Stop Time Status Last Admin Sodium Chloride 2 ml 2 ml UNSCH PRN IVF 06/06/16 14:00 Levetriacetam 100 ml @ 400 mls/hr Q12HR IV 06/06/16 21:00 06/06/16 20:14 Potassium Chloride 100 ml @ 50 mls/hr Q2H PRN IV 06/06/16 15:30 Potassium Chloride 100 ml @ 50 mls/hr Q2H PRN IV 06/06/16 15:30 Potassium Chloride 100 ml @ 25 mls/hr UNSCH PRN IV 06/06/16 15:30 Potassium Chloride 100 ml @ 50 mls/hr Q2H PRN IV 06/06/16 15:30 06/07/16 06:04 (Magnesium Sulfate Inj/NS Inj) 100 ml @ 50 mls/hr UNSCH PRN IV 06/06/16 15:30 Magnesium Oxide 800 mg 800 mg UNSCH PRN PO 06/06/16 15:30 (Magnesium Sulfate Inj/NS Inj) 100 ml @ 50 mls/hr UNSCH PRN IV 06/06/16 15:30 Potassium Phosphate 2000 mg 2,000 mg Q4H PRN PO 06/06/16 15:30 (Sodium Phosphate Inj/NS 250 ml Inj) 250 ml @ 42 mls/hr UNSCH PRN IV 06/06/16 15:30 Potassium Phosphate 2000 mg 2,000 mg UNSCH PRN PO/TUBE 06/06/16 15:30 (Potassium Phosphate Inj/NS 250 ml Inj) 260 ml @ 42 mls/hr UNSCH PRN IV 06/06/16 15:30 (Peridex 0.12% Liq) 15 ml BID@08,20 MT 06/06/16 20:00 06/06/16 20:14 (Protonix Inj) 40 mg DAILY IV 06/07/16 09:00 (Lovenox Inj) 40 mg Q24H SQ 06/06/16 16:00 Miscellaneous Information 1 Q361D XX 06/06/16 15:30 (Chlorhexidine 2% Cloth) 3 pack Taper DAILY@04 TOP 06/07/16 04:00 06/03/17 03:59 06/07/16 04:00 Chlorhexidine Gluconate 3 pack 3 pack UNSCH PRN TOP 06/06/16 15:30 Propofol 100 ml @ 0 mls/hr TITRATE IV 06/06/16 15:30 06/07/16 06:04 (Versed Inj) 100 ml @ 0 mls/hr TITRATE IV 06/06/16 15:30 06/06/16 20:15 (Lanoxin) 0.125 mg DAILY PO 06/07/16 09:00 (Plaquenil) 200 mg DAILY PO 06/07/16 09:00 (Pravachol) 20 mg DAILY PO 06/07/16 09:00 (Vitamin B12) 5,000 mcg DAILY PO 06/07/16 09:00 Patient Own Medication PT OWN MED: (Glatira... DAILY SQ 06/07/16 09:00 Future Hold (Ativan Inj) 1 mg Q2H PRN IV PUSH 06/06/16 15:45 06/06/16 17:47 Exam I&O / VS 06/06/16 06/06/16 06/07/16 14:59 22:59 06:59 Intake Total 273 ml 778 ml Output Total 500 ml 1300 ml Balance -227 ml -522 ml Intake IV Total 273 ml 778 ml Output Urine Total 500 ml 1300 ml # Bowel Movements 0 0 Vital Signs Date Time Temp Pulse Resp B/P Pulse Ox O2 Delivery O2 Flow Rate FiO2 06/07/16 06:00 102 06/07/16 04:15 100 35 06/07/16 04:00 99.0 86 16 98/70 100 06/07/16 04:00 86 06/07/16 04:00 35 06/07/16 02:00 82 06/07/16 01:25 100 35 06/07/16 00:00 35 06/07/16 00:00 98.4 76 16 88/62 100 06/07/16 00:00 76 06/06/16 22:12 98 35 06/06/16 22:00 84 06/06/16 20:00 40 06/06/16 20:00 98.0 73 16 103/75 100 06/06/16 20:00 73 06/06/16 19:08 100 40 06/06/16 18:00 69 06/06/16 17:45 100 100 06/06/16 16:51 100 40 06/06/16 16:12 100 60 06/06/16 16:00 98.7 71 16 98/59 100 06/06/16 14:14 18 100 Ventilator 06/06/16 14:14 83 20 100 Ventilator 06/06/16 14:06 86 18 160/113 98 06/06/16 14:05 100 100 Exam Comments intubated, sedated, limited exam, mild coma, not following, no verbal attempt, eomi, ou 2mm sluggish, limited limb movement, no clonus, planterflexor Review/Management Diagnosis/Plan: (1) Seizure cerebral Plan: unclear cause recs keppra f/u eeg reduce sedation if eeg stable no driving/climbing heights/swimming alone (2) Depression (3) Chronic pain (4) Pacemaker Problem Qualifiers (1) Depression: Qualified Code: F32.9 - Depression, unspecified depression type (2) Chronic pain: Qualified Code: G89.4 - Chronic pain syndrome Garcia Bell MD Jun 07, 2016 07:44
[2016-06-07] MEDS: CHLORHEXIDINE 0.12% (ORAL KIT) 15 ML CUP MT SCH (08:26)
[2016-06-07] MEDS: levETIRAcetam 1000 MG INJ 100 ML IV SCH ×2 (08:26→22:19)
[2016-06-07] MEDS: LORazepam 2 MG/ML VIAL IV PUSH PRN (08:28)
[2016-06-07] MEDS ORDERED: DIGOXIN 0.125 MG TAB PO SCH (09:00)
[2016-06-07] MEDS ORDERED: HYDROXYCHLOROQUINE SULFATE 200 MG TAB PO SCH (09:00)
[2016-06-07] MEDS ORDERED: PRAVASTATIN SOD 20 MG TAB PO SCH (09:00)
[2016-06-07] MEDS ORDERED: GLATIRAMER 20 MG SQ SCH (09:00)
[2016-06-07] MEDS ORDERED: CYANOCOBALAMIN 1,000 MCG TAB PO SCH (09:00)
[2016-06-07] MEDS ORDERED: PANTOPRAZOLE SODIUM 40 MG VIAL IV SCH (09:00)
--- NOTE | 2016-06-07 09:34 | HHI.CCPN ---
Subjective Remarks/Hospital Course Patient is a 45-year-old female with history of seizures, MS, previous TIA, rheumatoid arthritis who presented to the ER today brought in by EMS after sustaining witnessed seizures. Per EMS her son stated that they were hanging a picture when she developed chest pain, collapsed, had a seizure. Patient was postictal when EMS arrived and en route had 2 additional seizures in route, he was given Ativan 2 mg IV 2 ,total 4 of Ativan en route. She had a witnessed seizure in the ER and was given additional 2m IV Ativan. Patient did not regain consciousness between seizures. She was found not to have a gag reflex and was intubated for airway protection. Patient was also loaded with 1 g of Keppra I evaluated the patient in the ED. Patient is sedated with propofol on lightening sedation moves all extremities do not follow commands. CT of the head is pending at this time a stat EEG had been ordered. I will continue Keppra 1 g IV every 12 hours. Urine drug screen is negative, a magnesium level is pending at this time. I have ordered an EKG and cardiac enzymes also SUBJ 06/07/16: Remains intubated sedated. getting EEG today. No further seizures reported Objective Vital Signs Date Time Temp Pulse Resp B/P Pulse Ox O2 Delivery O2 Flow Rate FiO2 06/07/16 09:04 100 35 06/07/16 06:00 102 06/07/16 04:00 99.0 16 98/70 06/06/16 14:14 Ventilator Intake and Output 06/06/16 06/06/16 06/07/16 08:00 16:00 00:00 Intake Total 273 ml Output Total 500 ml Balance -227 ml Result Diagram: 06/07/16 0433 06/07/[address] head pending CXR No acute infiltrate Objective Remarks GENERAL: 45 year old white female who is intubated sedated with propofol SKIN: Warm and dry HEAD: Atraumatic. Normocephalic. EYES: Pupils equal and round, reactive ENT: No nasal bleeding or discharge. Orotracheally intubated NECK: Trachea midline. No JVD. CARDIOVASCULAR: Regular rate and rhythm. No murmur appreciated. Right upper chest pacemaker in place RESPIRATORY: Clear to auscultation. Breath sounds equal bilaterally. GASTROINTESTINAL: Abdomen soft, non-tender, nondistended. Hepatic and splenic margins not palpable. MUSCULOSKELETAL: No obvious deformities. No clubbing. No cyanosis. No edema. NEUROLOGICAL: MELVIN. Intubated sedated with propofol. Moves extremities on sedation hold. Do not follow commands Urinary Catheter: Yes Assessment to: Continue A/P Assessment and Plan NEURO: Status epilepticus Acute encephalopathy History of seizure disorder History of multiple sclerosis -Patient was loaded with 1 g of Keppra 06/06, continue Keppra 1 g IV every 12 -Neurology consult appreciated. EEG pending -Propofol and Versed for sedation and ventilator synchrony and seizure control -Continue Copaxone for MS RESP: Acute respiratory failure -Intubated for airway protection during status epilepticus -ACV. DuoNeb every 6 hours scheduled and when necessary, ventilator bundle -Elevate head of the bed the 30 -Weaning trials starting today CV: Hypotension most likely sedation induced History of pacemaker placement for severe bradycardia Atypical chest pain -Normal saline IV fluids 2L bolus and 84 ml per hour -Patient had chest pain rule out ACS No arrhythmia's reported by EMS -Cardiac enzymes had been negative, most likely chest pain was noncardiac -Continue statins GI: -Nothing by mouth, IV Protonix -Start tube feeds if not extubated in 24 hours : -Monitor renal function closely. Alfaro catheter. ID: -Monitor for infection. No antibiotics at this time HEME: -Monitor CBC, CMP, coags ENDO: -Electrolyte replacement per protocol. PROPH: -Bilateral lower extremity SCDs. IV Protonix for GI prophylaxis. Lovenox for DVT prophylaxis if CT of the head is negative LINES: -Utilize peripheral IVs, central line if needed CC time 35 min Lucinda Burroughs MD Jun 07, 2016 09:34
[2016-06-07] MEDS ORDERED: DEXMEDETOMIDINE INJ 50 ML IV SCH (12:00)
[2016-06-07] MEDS: ENOXAPARIN SODIUM 40 MG/0.4 ML SYRINGE SQ SCH (16:00)
[2016-06-07] MEDS ORDERED: MIDODRINE 5 MG TAB PO SCH (18:00)
[2016-06-07] MEDS ORDERED: diphenhydrAMINE HCL 50 MG/ML VIAL IV PUSH ONE (21:15)
[2016-06-07] MEDS ORDERED: LORazepam 2 MG/ML VIAL IV PUSH ONE (21:15)
[2016-06-07] MEDS ORDERED: HALOPERIDOL LACTATE 5 MG/ML AMP IV ONE (21:15)
[2016-06-08] VITALS: BP 116/81; PULSE 69; PULSE 79; RESP 18; TEMP 97.7; O2SAT 96
[2016-06-08 02:00] VITALS: PULSE 74
[2016-06-08 04:00] VITALS: BP 103/61; PULSE 69; PULSE 82; RESP 18; TEMP 97; O2SAT 94
[2016-06-08] MEDS: RESP: ALBUTEROL 2.5 MG/IPRATROPIUM 0.5 MG NEB (SCH) NEB (04:06)
[2016-06-08 06:00] VITALS: PULSE 82
[2016-06-08 08:00] VITALS: PULSE 82
--- NOTE | 2016-06-08 08:39 | MG ---
cc: CONSUELO FERNANDEZ Lab No: [id number] Date: 06/08/2016 Age: 45 Sex: F Race: __ INDICATIONS A 45-year-old woman, intubated, history of MS, TIA, stroke, defibrillator/pacemaker. MEDICATIONS 1. Plaquenil 2. Keppra DESCRIPTION An 8 Hz symmetric 60 microvolt rhythm is noted with intermittent delta slowing which is bilateral, synchronous and symmetric. At epoch 88, there may be a significant sharp wave seen over the left posterior temporal head region on the bipolar montage which is present. Phase reversing over C3 on the transverse montage. Generally, the recording is a very high amplitude, however. Photic stimulation is performed without significant posterior driving. No other major hemisphere asymmetries are seen. IMPRESSION Some very high amplitude with a lot of delta slowing which could be considered a sleep variant versus severe metabolic encephalopathy or drug effect. There were a few sharps seen as noted above, although was in a general recording up higher amplitude background. The significance is unclear. Clinical correlation is needed. MD J LUIS Rivas/YARIEL /8:24 AM /8:34 AM
--- NOTE | 2016-06-08 08:39 | HHI.PR ---
Review/Management Diagnosis/Plan: (1) Seizure cerebral Plan: unclear cause recs keppra f/u eeg- prelim no active sz's can change keppra to po if tolerating no driving/climbing heights/swimming alone x 6 months of being sz free (2) Depression (3) Chronic pain (4) Pacemaker Subjective Subjective Comments No acute events reported no sz's No headache No chest pain No dyspnea Active Medications Current Medications Medications (Trade) Dose Ordered Sig/Elver Route Start Time Stop Time Status Last Admin Sodium Chloride 2 ml 2 ml UNSCH PRN IVF 06/06/16 14:00 Levetriacetam 100 ml @ 400 mls/hr Q12HR IV 06/06/16 21:00 06/07/16 22:19 Potassium Chloride 100 ml @ 50 mls/hr Q2H PRN IV 06/06/16 15:30 Potassium Chloride 100 ml @ 50 mls/hr Q2H PRN IV 06/06/16 15:30 Potassium Chloride 100 ml @ 25 mls/hr UNSCH PRN IV 06/06/16 15:30 Potassium Chloride 100 ml @ 50 mls/hr Q2H PRN IV 06/06/16 15:30 06/07/16 08:27 (Magnesium Sulfate Inj/NS Inj) 100 ml @ 50 mls/hr UNSCH PRN IV 06/06/16 15:30 Magnesium Oxide 800 mg 800 mg UNSCH PRN PO 06/06/16 15:30 (Magnesium Sulfate Inj/NS Inj) 100 ml @ 50 mls/hr UNSCH PRN IV 06/06/16 15:30 Potassium Phosphate 2000 mg 2,000 mg Q4H PRN PO 06/06/16 15:30 (Sodium Phosphate Inj/NS 250 ml Inj) 250 ml @ 42 mls/hr UNSCH PRN IV 06/06/16 15:30 Potassium Phosphate 2000 mg 2,000 mg UNSCH PRN PO/TUBE 06/06/16 15:30 (Potassium Phosphate Inj/NS 250 ml Inj) 260 ml @ 42 mls/hr UNSCH PRN IV 06/06/16 15:30 (Peridex 0.12% Liq) 15 ml BID@08,20 MT 06/06/16 20:00 06/07/16 08:26 (Protonix Inj) 40 mg DAILY IV 06/07/16 09:00 06/07/16 08:26 (Lovenox Inj) 40 mg Q24H SQ 06/06/16 16:00 Miscellaneous Information 1 Q361D XX 06/06/16 15:30 (Chlorhexidine 2% Cloth) 3 pack Taper DAILY@04 TOP 06/07/16 04:00 06/03/17 03:59 06/07/16 04:00 Chlorhexidine Gluconate 3 pack 3 pack UNSCH PRN TOP 06/06/16 15:30 (Diprivan 1000 Mg/100ml Inj) 100 ml @ 0 mls/hr TITRATE IV 06/06/16 15:30 06/07/16 06:04 (Lanoxin) 0.125 mg DAILY PO 06/07/16 09:00 06/07/16 08:26 (Plaquenil) 200 mg DAILY PO 06/07/16 09:00 06/07/16 08:27 (Pravachol) 20 mg DAILY PO 06/07/16 09:00 06/07/16 08:26 (Vitamin B12) 5,000 mcg DAILY PO 06/07/16 09:00 06/07/16 08:27 Patient Own Medication PT OWN MED: (Glatira... DAILY SQ 06/07/16 09:00 Hold (Ativan Inj) 1 mg Q2H PRN IV PUSH 06/06/16 15:45 06/07/16 08:28 (Proamatine) 10 mg TID PO 06/07/16 18:00 Allergies Allergies Coded Allergies Adhesives (Verified Allergy, Severe, MAKES MY SKIN BLEED, 03/25/16) Codeine (Verified Allergy, Severe, SEIZURE, 03/25/16) Darvon (Verified Allergy, Severe, SWELLING OF THE THROAT, 03/25/16) Demerol (Verified Allergy, Severe, anaphylactic shock, 03/25/16) Dilantin (Verified Allergy, Severe, HIVES, 03/25/16) Iodine (Verified Allergy, Severe, Anaphylaxis, 03/25/16) Latex (Verified Allergy, Severe, HIVES, 03/25/16) Percocet (Verified Allergy, Severe, HIVES, 03/25/16) Phenobarbital (Verified Allergy, Severe, hives, 03/25/16) Seafood (Verified Allergy, Severe, including all shell fish causes anaphylactic, 03/25/16) Shellfish (Verified Allergy, Severe, 03/25/16) Sulfa (Verified Allergy, Severe, hives, 03/25/16) Tegretol (Verified Allergy, Severe, cardiac arrest, 03/25/16) Review of Systems All other ROS: ROS reviewed as documented in chart Exam I&O / VS 06/07/16 06/07/16 06/08/16 15:00 23:00 07:00 Intake Total 2324 ml 0 ml Output Total 800 ml 800 ml Balance 1524 ml -800 ml Intake Oral 0 ml IV Total 2324 ml 0 ml Output Urine Total 800 ml 800 ml # Bowel Movements 0 Vital Signs Date Time Temp Pulse Resp B/P Pulse Ox O2 Delivery O2 Flow Rate FiO2 06/08/16 06:00 82 06/08/16 04:00 97.0 69 18 103/61 94 06/08/16 04:00 82 06/08/16 02:00 74 06/08/16 00:00 97.7 69 18 116/81 96 06/08/16 00:00 79 06/07/16 22:00 74 06/07/16 20:13 100 21 06/07/16 20:00 74 06/07/16 20:00 97.3 80 20 98/68 98 06/07/16 20:00 Nasal Cannula 4.00 06/07/16 18:00 73 06/07/16 16:00 98.5 74 24 80/62 100 06/07/16 16:00 74 06/07/16 14:00 73 06/07/16 12:00 98.9 123 30 100/62 95 06/07/16 12:00 123 06/07/16 11:30 96 Nasal Cannula 4 06/07/16 11:30 96 Nasal Cannula 4.00 06/07/16 11:30 95 Nasal Cannula 4.00 06/07/16 10:22 35 06/07/16 10:15 35 06/07/16 10:00 108 06/07/16 09:04 100 35 Exam Comments drowsy, ox 3, conversant, slow speech, follows, eomi, ou 2mm sluggish, iglesias to gravity, no clonus, planterflexor Objective Micro and Labs Laboratory Tests Test 06/07/16 13:55 Potassium Level 3.7 Problem Qualifiers (1) Depression: Qualified Code: F32.9 - Depression, unspecified depression type (2) Chronic pain: Qualified Code: G89.4 - Chronic pain syndrome Garcia Bell MD Jun 08, 2016 08:39
--- NOTE | 2016-06-08 09:51 | HHI.CCPN ---
Subjective Remarks/Hospital Course Patient is a 45-year-old female with history of seizures, MS, previous TIA, rheumatoid arthritis who presented to the ER today brought in by EMS after sustaining witnessed seizures. Per EMS her son stated that they were hanging a picture when she developed chest pain, collapsed, had a seizure. Patient was postictal when EMS arrived and en route had 2 additional seizures in route, he was given Ativan 2 mg IV 2 ,total 4 of Ativan en route. She had a witnessed seizure in the ER and was given additional 2m IV Ativan. Patient did not regain consciousness between seizures. She was found not to have a gag reflex and was intubated for airway protection. Patient was also loaded with 1 g of Keppra I evaluated the patient in the ED. Patient is sedated with propofol on lightening sedation moves all extremities do not follow commands. CT of the head is pending at this time a stat EEG had been ordered. I will continue Keppra 1 g IV every 12 hours. Urine drug screen is negative, a magnesium level is pending at this time. I have ordered an EKG and cardiac enzymes also SUBJ 06/07/16: Remains intubated sedated. getting EEG today. No further seizures reported 06/08: Extubated yesterday tolerating well. No further distress. No seizures reported overnight Objective Vital Signs Date Time Temp Pulse Resp B/P Pulse Ox O2 Delivery O2 Flow Rate FiO2 06/08/16 06:00 82 06/08/16 04:00 97.0 18 103/61 94 06/07/16 20:13 21 06/07/16 20:00 Nasal Cannula 4.00 Intake and Output 06/07/16 06/07/16 06/08/16 08:00 16:00 00:00 Intake Total 778 ml 2324 ml Output Total 1300 ml 800 ml Balance -522 ml 1524 ml Result Diagram: 06/07/16 0433 06/07/[address] head pending CXR No acute infiltrate Objective Remarks GENERAL: 45 year old white female who somnolent but wakes up easily SKIN: Warm and dry HEAD: Atraumatic. Normocephalic. EYES: Pupils equal and round, reactive ENT: No nasal bleeding or discharge. Airway patent NECK: Trachea midline. No JVD. CARDIOVASCULAR: Regular rate and rhythm. No murmur appreciated. Right upper chest pacemaker in place RESPIRATORY: Clear to auscultation. Breath sounds equal bilaterally. GASTROINTESTINAL: Abdomen soft, non-tender, nondistended. Hepatic and splenic margins not palpable. MUSCULOSKELETAL: No obvious deformities. No clubbing. No cyanosis. No edema. NEUROLOGICAL: MELVIN. Somnolent, wakes up easily. No focal deficits A/P Assessment and Plan NEURO: Status epilepticus Acute encephalopathy History of seizure disorder History of multiple sclerosis -Patient was loaded with 1 g of Keppra 06/06, and Keppra 1 g IV every , change to PO -Neurology Dr. Bell. EEG pending -Ativan IV when necessary for seizures -Continue Copaxone for MS RESP: Acute respiratory failure-extubated 06/08/16 -Intubated for airway protection during status epilepticus, now extubated and tolerating well -DuoNeb every 6 hours PRN -Elevate head of the bed the 30 CV: Hypotension most likely sedation induced History of pacemaker placement for severe bradycardia Atypical chest pain -Normal saline IV fluids 2L bolus and 84 ml per hour-DC -Midodrine resumed for chronic hypotension -Patient had chest pain ACS ruled out -Cardiac enzymes had been negative, most likely chest pain was noncardiac -Continue statins GI: -Start regular diet : -Monitor renal function closely. Alfaro catheter. ID: -Monitor for infection. No antibiotics at this time HEME: -Monitor CBC, CMP, coags ENDO: -Electrolyte replacement per protocol. PROPH: -Bilateral lower extremity SCDs. Protonix for GI prophylaxis. Lovenox for DVT prophylaxis if CT of the head is negative LINES: -Utilize peripheral IVs, central line if needed Level [address] Landa to assume care. Critical care medicine will sign off. Transfer out of ICU Lucinda Burroughs MD Jun 08, 2016 09:51
[2016-06-08 10:00] VITALS: PULSE 80
--- NOTE | 2016-06-08 10:17 | PD.CONS ---
HPI Service [facility] Hospitalists Consult Requested By Dr. Burroughs Reason for Consult Medical management Primary Care Physician Tony Bettencourt M.D. Diagnoses: History of Present Illness This a 44-year-old white female with frequent admissions for questionable multiple sclerosis exacerbations, has received plasma exchange and IV steroids in the past, chronic opioid use, questionable TIA in the past. Patient known to the undersigned from multiple admissions to this facility and at [facility]. Patient presented to the emergency room on 06/06/2016 for witnessed seizure. Apparently patient was hanging a picture with her son when she developed chest pain, collapsed and had a seizure. Patient was postictal when EMS arrived and on route she had 2 additional seizures, was given Ativan. She had another witnessed seizure in the ER where she received 2 mg of IV Ativan. Patient did not regain consciousness between seizures and she was found to have no gag reflex therefore she was intubated for airway protection. Patient was loaded with 1 g of Keppra. Neurology was consulted. EEG was completed, preliminary read per neurology is that there is no active seizures. Laboratory workup was unremarkable. Urine drugs and was negative. CT of the brain was negative. Patient was extubated on 06/07/2016. Hospitalist services are requested to assume medical management. Per nursing report, overnight patient became very angry and belligerent. She was very agitated and require administration of Haldol, Benadryl and Ativan. She is now examined with the nurse, she opens eyes to voice but falls back asleep. She knows she is in the hospital and will not participate in any conversation. A few minutes after I examined patient, she called for the nurse and patient was now noted to be more awake, she is oriented 3. Indicates she wants to go home now and is requesting discharge. She has multiple complaints, and is bringing up nursing issues from previous admissions. She is providing permission that I speak to her fianc to update on her condition. (Rosalba Willson) Review of Systems ROS Limitations: Clinical Condition, Uncooperative (Rosalba Willson) Past Family Social History Past Medical History multiple sclerosis currently on Copaxone, multiple sclerosis had plasmapheresis 2014, uterine and ovarian cancer in situ, seizure disorder, TIA/CVA, migraines, supraventricular tachycardia, depression, anxiety, thrombocytopenia, peripheral neuropathy, rheumatoid arthritis Past Surgical History Appendectomy, bilateral tubal ligation, total abdominal hysterectomy with bilateral salpingo-oophorectomy, cholecystectomy, pacemaker, ovarian tumor removed Reported Medications Reported Meds & Active Scripts Active Reported Vitamin B-12 (Cyanocobalamin) Unknown Strength Tab 1 Tab PO DAILY Plaquenil (Hydroxychloroquine Sulfate) 200 Mg Tab 200 Mg PO DAILY Take with food Lovastatin 20 Mg Tab 20 Mg PO DAILY Midodrine 10 Mg Tab 10 Mg PO TID Hydromorphone (Hydromorphone HCl) 2 Mg Tab 2 Mg PO Q4H PRN Vitamin D (Cholecalciferol) 5,000 Unit Tab 5,000 Units PO DAILY Lactulose Liq (Lactulose (Encephalopathy) Liq) 19 Gm/15 Ml Soln 15 Ml PO DAILY Digoxin 0.125 Mg Tab 0.125 Mg PO DAILY Effexor XR 24 HR (Venlafaxine HCl) 150 Mg Cap 150 Mg PO BID Clonazepam 1 Mg Tab 1 Mg PO BID Copaxone Inj (Glatiramer Inj) 20 Mg/Ml Syr 20 Mg SQ DAILY (Rosalba Willson) Allergies: Coded Allergies: Adhesives (Verified Allergy, Severe, MAKES MY SKIN BLEED, 03/25/16) Codeine (Verified Allergy, Severe, SEIZURE, 03/25/16) Darvon (Verified Allergy, Severe, SWELLING OF THE THROAT, 03/25/16) Demerol (Verified Allergy, Severe, anaphylactic shock, 03/25/16) Dilantin (Verified Allergy, Severe, HIVES, 03/25/16) Iodine (Verified Allergy, Severe, Anaphylaxis, 03/25/16) Latex (Verified Allergy, Severe, HIVES, 03/25/16) Percocet (Verified Allergy, Severe, HIVES, 03/25/16) Phenobarbital (Verified Allergy, Severe, hives, 03/25/16) Seafood (Verified Allergy, Severe, including all shell fish causes anaphylactic, 03/25/16) Shellfish (Verified Allergy, Severe, 03/25/16) Sulfa (Verified Allergy, Severe, hives, 03/25/16) Tegretol (Verified Allergy, Severe, cardiac arrest, 03/25/16) Active Ordered Medications Inpatient Medications Albuterol Sulfate (Albuterol Neb) 2.5 mg Q4HR NEB PRN INH SHORTNESS OF BREATH; Start 06/06/16 at 15:30 Albuterol/ Ipratropium (Duoneb Neb) 1 ampule Q6HR NEB NEB Last administered on 06/08/16 04:06; Start 06/06/16 at 16:00; Stop 06/08/16 at 09:39; Status DC Chlorhexidine Gluconate (Chlorhexidine 2% Cloth) 3 pack Taper DAILY@04 TOP Last administered on 06/07/16 04:00; Start 06/07/16 at 04:00; Stop 06/03/17 at 03:59 Chlorhexidine Gluconate (Peridex 0.12% Liq) 15 ml BID@08,20 MT Last administered on 06/07/16 08:26; Start 06/06/16 at 20:00; Stop 06/08/16 at 09:39 ; Status DC Chlorhexidine Gluconate 3 pack 3 pack UNSCH PRN TOP HYGIENIC CARE; Start at 15:30 Cyanocobalamin (Vitamin B12) 5,000 mcg DAILY PO Last administered on 06/07/16 08:27; Start 06/07/16 at 09:00 Dexmedetomidine HCl (Precedex Inj) 50 ml @ 0 mls/hr TITRATE IV Last administered on 06/07/16 12:37; Start 06/07/16 at 12:00; Stop 06/07/16 at 21:12 ; Status DC Digoxin (Lanoxin) 0.125 mg DAILY PO Last administered on 06/07/16 08:26; Start 06/07/16 at 09:00 Diphenhydramine HCl (Benadryl Inj) 50 mg ONCE ONCE IV PUSH Last administered on 06/08/16 01:38; Start 06/07/16 at 21:15; Stop 06/07/16 at 21:16; Status DC Enoxaparin Sodium (Lovenox Inj) 40 mg Q24H SQ ; Start 06/06/16 at 16:00 Haloperidol Lactate (Haldol Inj) 5 mg ONCE ONCE IV ; Start 06/07/16 at 21:15; Stop 06/07/16 at 21:16; Status DC Hydroxychloroquine Sulfate (Plaquenil) 200 mg DAILY PO Last administered on 08:27; Start 06/07/16 at 09:00 Levetriacetam (Keppra) 1,000 mg Q12HR PO ; Start 06/08/16 at 21:00 Levetriacetam 500 mg/Sodium Chloride 105 ml @ 420 mls/hr BOLUS ONCE IV Last administered on 06/06/16 14:00; Start 06/06/16 at 14:00; Stop 06/06/16 at 14:14 ; Status DC Lorazepam (Ativan Inj) 2 mg ONCE ONCE IV PUSH Last administered on 06/08/16 01:37; Start 06/07/16 at 21:15; Stop 06/07/16 at 21:16; Status DC Lorazepam 1 mg 1 mg Q2H PRN IV PUSH seizures Last administered on 06/07/16 08: 28; Start 06/06/16 at 15:45 Lorazepam 2 mg 2 mg ONCE ONCE IVS Last administered on 06/06/16 14:00; Start 06/06/16 at 14:00; Stop 06/06/16 at 14:01; Status DC Magnesium Oxide 800 mg 800 mg UNSCH PRN PO For Magnesium 1.2 - 1.6 mg/dL; Start 06/06/16 at 15:30 Magnesium Sulfate 2 gm/Sodium Chloride 100 ml @ 50 mls/hr UNSCH PRN IV For Magnesium 1.2 - 1.6 mg/dL; Start 06/06/16 at 15:30 Magnesium Sulfate/ Sodium Chloride (Magnesium Sulfate Inj/NS Inj) 100 ml @ 50 mls/hr UNSCH PRN IV For Magnesium 0.9 - 1.1 mg/dL; Start 06/06/16 at 15:30 Midazolam HCl (Versed Inj) 100 ml @ 0 mls/hr TITRATE IV Last administered on 20:15; Start 06/06/16 at 15:30; Stop 06/07/16 at 10:19; Status DC Midodrine (Proamatine) 10 mg TID PO ; Start 06/07/16 at 18:00 Miscellaneous Information 1 Q361D XX ; Start 06/06/16 at 15:30 Pantoprazole Sodium (Protonix Inj) 40 mg DAILY IV Last administered on 08:26; Start 06/07/16 at 09:00; Stop 06/08/16 at 09:39; Status DC Pantoprazole Sodium (Protonix) 20 mg DAILY PO ; Start 06/08/16 at 11:00 Patient Own Medication PT OWN MED: (Glatira... DAILY SQ ; Start 06/07/16 at 09: 00; Status Hold Potassium Phosphate 2000 mg 2,000 mg UNSCH PRN PO/TUBE SEE LABEL COMMENTS; Start 06/06/16 at 15:30 Potassium Phosphate/Sodium Chloride (Potassium Phosphate Inj/NS 250 ml Inj) 260 ml @ 42 mls/hr UNSCH PRN IV SEE LABEL COMMENTS; Start 06/06/16 at 15:30 Potassium Chloride 100 ml @ 50 mls/hr Q2H PRN IV For Potassium 3.3 - 3.5 mEq/ L Last administered on 06/07/16 08:27; Start 06/06/16 at 15:30 Pravastatin Sodium (Pravachol) 20 mg DAILY PO Last administered on 06/07/16 08 :26; Start 06/07/16 at 09:00 Propofol 100 ml @ 0 mls/hr TITRATE IV Last administered on 06/07/16 06:04; Start 06/06/16 at 15:30; Stop 06/08/16 at 09:39; Status DC Sodium Chloride 1,000 ml @ 999 mls/hr BOLUS ONCE IV Last administered on 06/06 15:15; Start 06/06/16 at 15:15; Stop 06/06/16 at 16:15; Status DC Sodium Chloride (NS 1000 ml Inj) 1,000 ml @ 1,000 mls/hr Q1H ONCE IV Last administered on 06/06/16 13:54; Start 06/06/16 at 13:54; Stop 06/06/16 at 14:53 ; Status DC Sodium Chloride (NS Flush) 2 ml UNSCH PRN IVF FLUSH AFTER USING IV ACCESS; Start 06/06/16 at 14:00 Sodium Phosphate/ Sodium Chloride (Sodium Phosphate Inj/NS 250 ml Inj) 250 ml @ 42 mls/hr UNSCH PRN IV For Phosphorus < 2.5 mg/dL; Start 06/06/16 at 15:30 Family History Patient's mother has history of coronary artery disease status post coronary artery bypass graft . Past medical history aneurysm Father has Steele's disease Social History Patient was a respiratory therapist currently disabled Lives with her son Has a fianc Denies EtOH use tobacco use or illicit drug use (Rosalba Willson) Physical Exam Vital Signs Vital Signs Date Time Temp Pulse Resp B/P Pulse Ox O2 Delivery O2 Flow Rate FiO2 06/08/16 06:00 82 06/08/16 04:00 97.0 69 18 103/61 94 06/08/16 04:00 82 06/08/16 02:00 74 06/08/16 00:00 97.7 69 18 116/81 96 06/08/16 00:00 79 06/07/16 22:00 74 06/07/16 20:13 100 21 06/07/16 20:00 74 06/07/16 20:00 97.3 80 20 98/68 98 06/07/16 20:00 Nasal Cannula 4.00 06/07/16 18:00 73 06/07/16 16:00 98.5 74 24 80/62 100 06/07/16 16:00 74 06/07/16 14:00 73 06/07/16 12:00 98.9 123 30 100/62 95 06/07/16 12:00 123 06/07/16 11:30 96 Nasal Cannula 4 06/07/16 11:30 96 Nasal Cannula 4.00 06/07/16 11:30 95 Nasal Cannula 4.00 06/07/16 10:22 35 Physical Exam GENERAL: This is a well-nourished, well-developed patient, in no apparent distress. SKIN: No rashes, ecchymoses or lesions. Cool and dry. HEAD: Atraumatic. Normocephalic. No temporal or scalp tenderness. EYES: Pupils equal round and reactive. Extraocular motions intact. No scleral icterus. No injection or drainage. ENT: Nose without bleeding, purulent drainage or septal hematoma. Throat without erythema, tonsillar hypertrophy or exudate. Uvula midline. Airway patent. NECK: Trachea midline. No JVD or lymphadenopathy. Supple, nontender, no meningeal signs. CARDIOVASCULAR: Regular rate and rhythm without murmurs, gallops, or rubs. RESPIRATORY: Clear to auscultation. Breath sounds equal bilaterally. No wheezes , rales, or rhonchi. GASTROINTESTINAL: Abdomen soft, non-tender, nondistended. No hepato-splenomegaly , or palpable masses. No guarding. MUSCULOSKELETAL: Extremities without clubbing, cyanosis, or edema. No joint tenderness, effusion, or edema noted. No calf tenderness. Negative Homans sign bilaterally. NEUROLOGICAL: Awakes to voice, falls back asleep and then was awake. Oriented 3. No focal deficit. Laboratory Laboratory Tests Test 06/07/16 13:55 Potassium Level 3.7 (Rosalba Willson) Result Diagram: 06/07/16 0433 06/07/16 1355 Imaging Last Impressions Head CT 06/06/16 1529 Signed Impressions: Service Date/Time: Monday, June 06, 2016 16:19 - CONCLUSION: Normal examination for a patient of this age. No significant change has occurred. Quintin Martinez MD Chest X-Ray 06/06/16 1401 Signed Impressions: Service Date/Time: Monday, June 06, 2016 15:26 - CONCLUSION: 1. Support apparatus in satisfactory position. Minimal basilar atelectasis. Quintin Martinez MD (Rosalba Willson) A/P Diagnosis: (1) Acute respiratory failure (2) Seizure disorder (3) Status epilepticus (4) Pacemaker (5) Acute encephalopathy (6) Chronic pain (7) questionable history of MS (8) Depressive disorder, not elsewhere classified (9) Hypotension Assessment and Plan Thank you for this consultation, we will assume medical management 45-year-old female with questionable history of MS and TIA, chronic opioid use. Admitted after having seizure, was postictal and not protecting airway and required emergent intubation. Patient extubated. No respiratory distress, stable. Status post respiratory failure, extubated Monitor sats -Oxygen as needed -DuoNeb's as needed Seizure disorder, etiology unclear Appreciate neurology input Continue with Keppra Seizure precautions -Ativan as needed Hypotension, now resolved Continue with Midodrine Questionable history of MS, patient has had previous imaging disorder showing no evidence of MS. Patient states she is on Copaxone at home. -Continue to monitor History of bradycardia, has pacemaker Continue with digoxin Chronic opiate use Avoid narcotics at this time Encephalopathy, improving. -Continue with Ativan as needed Home medications reviewed, some have been initiated Lovenox for DVT prophylaxis Protonix for GI prophylaxis Patient okay to transfer out of the ICU If patient remains stable, possible discharge tomorrow. Will speak to patient' s fianc at her request Plan of care has been discussed with the patient, attending and registered nurse. Further management of the patient will be dependent on the hospital course This patient was seen by myself and Dr. Lopez, this consultation is written on his behalf (Rosalba Willson) Assessment and Plan PT WAS SEEN AND EXAMINED YESTERDAY WITH RN AND SIG OTHER AT BEDSIDE CHART WAS REVIEWED [facility] NEUROLOGY INPUT CROW CHIEF RISK OFFICER INPUT DW PT IN DETAIL ABOUT HER CONDITION AND NEEDS SHE UNDERSTOOD. ALSO EXPLAINED CONSEQUENCES OF LEAVING AGAINST MEDICAL ADVICE, SHE UNDERSTOOD. 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 PT UNDERSTOOD. MAXIMO RN IN DETAIL. PRESCRIPTION FOR KEPPRA GIVEN. (Marisel Lopez MD) Problem Qualifiers (1) Acute respiratory failure: Qualified Code: J96.00 - Acute respiratory failure, unspecified whether with hypoxia or hypercapnia (2) Chronic pain: Qualified Code: G89.4 - Chronic pain syndrome (3) Hypotension: Qualified Code: I95.89 - Other specified hypotension Rosalba Willson Jun 08, 2016 10:17 Marisel Lopez MD Jun 09, 2016 09:12
[2016-06-08] MEDS ORDERED: PANTOPRAZOLE SOD 20 MG DELAYED RELEASE TAB PO SCH (11:00)
[2016-06-08] MEDS ORDERED: LEVE500 PO (11:06)
--- NOTE | 2016-06-08 11:06 | HHI.DCPOC ---
Discharge Care Plan Diagnosis: (1) Seizure cerebral (2) Acute encephalopathy Your Health Problems Are: Anxiety Goals to Promote Your Health * To prevent worsening of your condition and complications * To maintain your health at the optimal level Directions to Meet Your Goals Take your medications as prescribed Follow your dietary instruction Follow activity as directed Keep your appointments as scheduled Take your immunizations and boosters as scheduled If your symptoms worsen call your PCP, if no PCP go to Urgent Care Center or Emergency Room Smoking is Dangerous to Your Health. Avoid second hand smoke Call the 24-hour hour crisis hotline for domestic abuse at Rosalba Willson Jun 08, 2016 11:06
--- NOTE | 2016-06-08 12:58 | EKG ---
Date Performed: 06/06/2016 Time Performed: 17:20:37 PTAGE: 45 years EKG: Sinus rhythm LEFT ANTERIOR FASCICULAR BLOCK ABNORMAL ECG PREVIOUS TRACING : 06/06/2016 15.11 Compared to prior tracing no significant change DOCTOR: Lm Gomes Interpretating Date/Time 06/08/2016 12:55:14
--- NOTE | 2016-06-08 12:58 | EKG ---
Date Performed: 06/06/2016 Time Performed: 15:11:19 PTAGE: 45 years EKG: Sinus rhythm POSSIBLE RIGHT VENTRICULAR CONDUCTION DELAY LEFT ANTERIOR FASCICULAR BLOCK ABNORMAL ECG PREVIOUS TRACING : 03/25/2016 09.20 Compared to prior tracing no significant change DOCTOR: Lm Gomes Interpretating Date/Time 06/08/2016 12:55:24
--- NOTE | 2016-06-08 14:20 | PD.AMA ---
Against Medical Advice Note Discharge Disposition: Against Medical Advice Pt Condition on Discharge: Fair AMA Statement Patient Rand Fry has decided to leave the hospital against medical advice. This patient has the capacity to refuse care and understands the risks of leaving, including permanent disability and/or , and has had an opportunity to ask questions about her condition. The patient has been informed that she may return for care at any time, and follow up has been arranged/ advised. Rosalba Willson Jun 08, 2016 14:20
[2016-06-08] MEDS ORDERED: levETIRAcetam 500 MG TAB PO SCH (21:00)
[2016-08-13] MEDS ORDERED: CYAN100025 SL (14:01)
[2016-08-13] MEDS ORDERED: D-20TAB3 PO (14:01)
[2016-08-13] MEDS ORDERED: FURO1TAB62 PO (14:01)
== END 2016-06-08 12:05 | disposition left against medical advice (07) | DRG 100 ==
LOC: NEPC 13:44 → NEDA 15:29 → HIME 16:35
PROVIDERS: ADMIT Specialist; ATTEND Specialist
PROC: 0BH17EZ Insertion of Endotracheal Airway into Trachea, Via Natural or Artificial Opening (ICD-10-PCS; principal; 2016-06-06)
PROC: 5A1935Z Respiratory Ventilation, Less than 24 Consecutive Hours (ICD-10-PCS; 2016-06-06)
DX: G40.901 Epilepsy, unspecified, not intractable, with status epilepticus (principal); J96.00 Acute respiratory failure, unspecified whether with hypoxia or hypercapnia; G93.40 Encephalopathy, unspecified; G35 Multiple sclerosis; I95.89 Other hypotension; Z86.73 Personal history of transient ischemic attack (TIA), and cerebral infarction without residual deficits; Z85.43 Personal history of malignant neoplasm of ovary; M06.9 Rheumatoid arthritis, unspecified; G62.9 Polyneuropathy, unspecified; Z95.0 Presence of cardiac pacemaker; Z79.891 Long term (current) use of opiate analgesic; F32.9 Major depressive disorder, single episode, unspecified
CPT/HCPCS: 31500; 51702; 70450; 71010; 76937; 80053; 80307; 82550; 82552; 83605; 83735; 84100; 84132; 84484; 85025; 87641; 93005; 94002; 94003; 94640; 95819; 96374; 96375; C9113; C9399; J0330; J1200; J1953; J2060; J2250; J3480; J7030

== ENCOUNTER 2016-07-16 23:12 | Emergency (ER) | payer BC ==
[~2016-07-16 23:12] MED LIST changes: +LEVE500 PO
[2016-07-16 23:36] VITALS: BP 125/95; PULSE 98; RESP 16; TEMP 98.1; O2SAT 100
[2016-07-17] MEDS ORDERED: clonazePAM 1 MG TAB PO ONE
--- NOTE | 2016-07-17 00:05 | PD ---
HPI Chief Complaint: Psychiatric Symptoms Time Seen by Provider: 23:57 Travel History International Travel<30 days: No Contact w/Intl Traveler<30days: No Traveled to known affect area: No History of Present Illness HPI 45-year-old white female presents to emergency department under [place] act by PD. The patient had called [facility] suicide hotline notifying them that she was feeling depressed. She states that she wanted to talk to someone. She states that her had 19 years ago on 20 July. She was suffering from MS and has had a loss of employment and is concerned that she may lose her home. She is also concerned that her 21-year-old son has diabetes. She states that she had talked to people from the [employer] regarding her issues today. She states that she's been depressed but she in no way feels suicidal or homicidal. She has no plan on self-harm. She denies any toxic ingestions. She states that she has too much to live for as well as her son. The patient states that her family do not understand why she just does not get over it. She had posted on social media her eulogy today. She states that the police came into her home this evening and placed her under a Hernandez act after her phone conversation. PFSH Past Medical History Hx Anticoagulant Therapy: No Anemia: Yes Arthritis: No Asthma: No Atrial Fibrillation: Yes Autoimmune Disease: Yes (MS 2007/ has undergone plasma exchange therapy) Blood Disorders: No Anxiety: Yes Depression: Yes Heart Rhythm Problems: Yes (severe bradicardia, pacer placed/ vagal nerve dysfunction/) Cancer: Yes (uterine and ovarian) Cardiac Catheterization: No Cardiovascular Problems: Yes High Cholesterol: Yes Chemotherapy: No Chest Pain: No Congestive Heart Failure: Yes COPD: No Cerebrovascular Accident: Yes Diabetes: No Diminished Hearing: Yes (HEARING AIDS) Endocrine: No GERD: Yes Glaucoma: No Genitourinary: Yes Headaches: Yes Hepatitis: No Hiatal Hernia: No Hypertension: No Immune Disorder: Yes (MS) Implanted Vascular Access Dvce: Yes (PACEMAKER,MEDTRONIC ) Kidney Stones: No Musculoskeletal: Yes (chronic neck and back pain) Neurologic: Yes (HX OF SEIZURES, MS, TIA) Psychiatric: Yes (DEPRESSION) Reproductive: Yes (ENDOMETRIOSIS ) Respiratory: Yes (RESP FAILURE) Immunizations Current: Yes Migraines: Yes Myocardial Infarction: No Renal Failure: No Seizures: Yes ( A CHILD, RESOLVED) Sickle Cell Disease: No Sleep Apnea: No Thyroid Disease: No Ulcer: No Menopausal: Yes : 3 Para: 3 Miscarriage: 0 : 0 Ovarian Cysts: Yes Tubal Ligation: Yes Past Surgical History Abdominal Surgery: Yes AICD: No Appendectomy: Yes Arteriovenous Shunt: No Cardiac Surgery: Yes (PACEMAKER 2011 multiple sclerosis complications, vagal nerve dysfn.) Section: Yes Cholecystectomy: Yes Coronary Artery Bypass Graft: No Ear Surgery: No Endocrine Surgery: No Eye Surgery: No Genitourinary Surgery: No Gynecologic Surgery: Yes (ENDOMETRIOSIS) Hysterectomy: Yes Insulin Pump: No Joint Replacement: No Neurologic Surgery: No Oral Surgery: No Pacemaker: Yes (UNKNOWN ) Thoracic Surgery: No Other Surgery: Yes (, REMOVAL OF GALLBLADDER) Social History Alcohol Use: No Tobacco Use: No Substance Use: No Allergies-Medications (Allergen,Severity, Reaction): Coded Allergies: Adhesives (Verified Allergy, Severe, MAKES MY SKIN BLEED, 07/16/16) Codeine (Verified Allergy, Severe, SEIZURE, 07/16/16) Darvon (Verified Allergy, Severe, SWELLING OF THE THROAT, 07/16/16) Demerol (Verified Allergy, Severe, anaphylactic shock, 07/16/16) Dilantin (Verified Allergy, Severe, HIVES, 07/16/16) Iodine (Verified Allergy, Severe, Anaphylaxis, 07/16/16) Latex (Verified Allergy, Severe, HIVES, 07/16/16) Percocet (Verified Allergy, Severe, HIVES, 07/16/16) Phenobarbital (Verified Allergy, Severe, hives, 07/16/16) Seafood (Verified Allergy, Severe, including all shell fish causes anaphylactic, 07/16/16) Shellfish (Verified Allergy, Severe, 07/16/16) Sulfa (Verified Allergy, Severe, hives, 07/16/16) Tegretol (Verified Allergy, Severe, cardiac arrest, 07/16/16) Reported Meds & Prescriptions Reported Meds & Active Scripts Active Keppra (Levetiracetam) 500 Mg Tab 1,000 Mg PO Q12HR Reported Vitamin B-12 (Cyanocobalamin) Unknown Strength Tab 1 Tab PO DAILY Plaquenil (Hydroxychloroquine Sulfate) 200 Mg Tab 200 Mg PO DAILY Take with food Lovastatin 20 Mg Tab 20 Mg PO DAILY Midodrine 10 Mg Tab 10 Mg PO TID Hydromorphone (Hydromorphone HCl) 2 Mg Tab 2 Mg PO Q4H PRN Vitamin D (Cholecalciferol) 5,000 Unit Tab 5,000 Units PO DAILY Lactulose Liq (Lactulose (Encephalopathy) Liq) 19 Gm/15 Ml Soln 15 Ml PO DAILY Digoxin 0.125 Mg Tab 0.125 Mg PO DAILY Effexor XR 24 HR (Venlafaxine HCl) 150 Mg Cap 150 Mg PO BID Clonazepam 1 Mg Tab 1 Mg PO BID Copaxone Inj (Glatiramer Inj) 20 Mg/Ml Syr 20 Mg SQ DAILY Review of Systems Except as stated in HPI: all other systems reviewed are Neg Psychiatric: Positive: Anxiety, Depression, No: Suicidal Ideations, Disorder of Thought, Mood Disorder, Substance Abuse, Homicidal Ideation Physical Exam Narrative GENERAL: Well-nourished, well-developed patient. SKIN: Warm and dry. HEAD: Normocephalic and atraumatic. EYES: No scleral icterus. No injection or drainage. ENT: No nasal drainage noted. Mucous membranes pink. Airway patent. NECK: Supple, trachea midline. Moves head freely without obvious discomfort. CARDIOVASCULAR: Regular rate and rhythm without murmurs, gallops, or rubs. RESPIRATORY: Breath sounds equal bilaterally. No accessory muscle use. GASTROINTESTINAL: Abdomen soft, non-tender, nondistended. EXTREMITIES: No cyanosis or edema. BACK: Nontender without obvious deformity. No CVA tenderness. NEURO: Patient is alert and oriented. no sensorimotor deficits. Nonfocal. Normal speech. PSYCH: No delusions. No auditory or visual hallucinations. Data Data Last Documented VS Vital Signs Date Time Temp Pulse Resp B/P Pulse Ox O2 Delivery O2 Flow Rate FiO2 07/16/16 23:36 98.1 98 16 125/95 100 Orders Complete Blood Count With Diff (07/16/16 23:46) Comprehensive Metabolic Panel (07/16/16 23:46) Ed Urine Pregnancytest Poc (07/16/16 23:46) Psych Screen (07/16/16 23:46) Drug Screen, Random Urine (07/16/16 23:46) Alcohol (Ethanol) (07/16/16 23:46) Tylenol (Acetaminophen) (07/16/16 23:46) Clonazepam (Klonopin) (07/17/16 00:00) MDM Medical Decision Making Medical Screen Exam Complete: Yes Emergency Medical Condition: Yes Medical Record Reviewed: Yes Differential Diagnosis MDM: High Differential diagnoses: Schizophrenia, schizoaffective disorder, bipolar, anxiety, depression, adjustment reaction, mood disorder NOS, ODD, depressive disorder NOS, dementia, dementia with agitation, psychosis NOS, substance induced mood disorder, intermittent explosive disorder, Asperger syndrome, infection,electrolyte abnormality, malingering. Narrative Course Mental health screening discussed with the patient. Psychiatric screen ordered. The patient has refused low draw. I find that she is a low risk for self-harm. I do not believe that blood is indicated for medical clearance. I've spoken with the psych screener who will evaluate the patient. Quintin Beatty July 17, 2016 00:05
[2016-07-17 00:51] LABS: AUTOMATED NEUTROPHIL # 4.1 TH/MM3 (1.8-7.7); BASOPHIL % 0.4 % (0.0-2.0); EOSINOPHIL # 0.2 TH/MM3 (0-0.4); EOSINOPHIL % 2.8 % (0.0-4.0); HEMATOCRIT 35.9 % (35.0-46.0); HEMO FLAGS DIFF FINAL; LYMPH % 25.7 % (9.0-44.0); LYMPHOCYTE # 1.8 TH/MM3 (1.0-4.8); MEAN CELL VOLUME 82.5 FL (80.0-100.0); MEAN CORPUSCULAR HEMOGLOBIN 28.6 PG (27.0-34.0); MEAN CORPUSCULAR HGB CONC 34.7 % (32.0-36.0); MONO % 12.3 % (0.0-8.0); NEUT % 58.8 % (16.0-70.0); PLATELET COUNT 191 TH/MM3 (150-450); RED BLOOD COUNT 4.35 MIL/MM3 (4.00-5.30); RED CELL DISTRIBUTION WIDTH 13.2 % (11.6-17.2)
[2016-07-17 00:58] LABS: AMPHETAMINE, URINE NEG (NEG); BARBITURATES, URINE NEG (NEG); COCAINE, URINE NEG (NEG)
[2016-07-17 01:07] LABS: ANION GAP 9 MEQ/L (5-15); AST (GOT) 15 U/L (15-37); BICARBONATE 28.1 MEQ/L (21.0-32.0); BLOOD UREA NITROGEN 19 MG/DL (7-18); CHLORIDE 107 MEQ/L (98-107); GLOMERULAR FILTRATION RATE 109 ML/MIN (>89); POTASSIUM 3.8 MEQ/L (3.5-5.1); SODIUM (NA) 144 MEQ/L (136-145)
[2016-07-17 01:11] LABS: ACETAMINOPHEN LESS THAN 2.0 MCG/ML (10.0-30.0); ALKALINE PHOSPHATASE 93 U/L (45-117); ALT (GPT) 26 U/L (10-53); TOTAL BILIRUBIN ADULT 0.2 MG/DL (0.2-1.0)
[2016-07-17] MEDS ORDERED: diphenhydrAMINE HCL 50 MG/ML VIAL IM ONE (02:00)
[2016-07-17] MEDS ORDERED: GABA600T PO (02:25)
[2016-07-17 07:54] VITALS: BP 95/42; PULSE 72; RESP 20; O2SAT 98
--- NOTE | 2016-07-17 12:45 | MB ---
cc: CONSUELO PATEL DATE OF CONSULTATION: 07/17/2016 PHYSICIAN REQUESTING CONSULTATION Emergency Department. REASON FOR CONSULTATION Hernandez Act. HISTORY OF PRESENT ILLNESS Ms. Fry is a 45-year-old female with a history of anxiety who presents under a Hernandez Act from law enforcement alleging that the patient made suicidal statements to a escrow representative from [employer] who then contacted 911. Hernandez Act also notes that anniversary of the patient's 's passing is coming up on the of this month. Reviewing our electronic medical record, I see no recent psychiatric contact within our system. No prior psychiatric admissions that I can see. The patient seen and examined. Chart reviewed. Case discussed with nurse in the [facility]. On my evaluation today, the patient presents as somewhat dysphoric. She is extremely upset that the escrow representative from [employer] had her Hernandez acted. She says that she got the referral to [facility] from some [facility] who were visiting her. She thought that she was just going to talk to someone. She feels that her rights are being abridged by keeping her here in the emergency department. She adamantly denies any suicidal ideation, intent or plan and notes that she would never hurt herself on account of her son, Tom, and also because of her Yarsanism parul which would prohibit her from seeing her again if she by suicide. The patient denies any severe issues with mood. She does admit that her sleep is somewhat poor. She does admit to some anxious symptoms and says angrily that her primary care doctor has recently taken her off of her Klonopin that had been helpful for this symptom. Denies audiovisual hallucinations. No delusional beliefs. No symptoms of severely unstable mood disorder that I can detect. The patient denies homicidal ideation. The remainder of the psychiatric ROS is negative. The patient is requesting discharge from the ED this morning. With the patient's permission, I have obtained collateral from her son Tom at [phone]. Note that this is reportedly the patient's own phone but the patient's son does not pickup his own telephone but is holding onto the patient's. I did speak with Tom and he has absolutely no concerns that the patient represents a risk of harm to herself or others at this time. He likewise castigates the [facility] escrow representative for Hernandez acting the patient. He denies any history of suicide attempts in the patient. He notes there is an uncle with schizophrenia but no other family psychiatric history. He notes that there are some guns in the home and I have counseled Tom to secure the home of any means of harm to self or others out of an abundance of caution. I have also counseled him to have the patient brought back to the ED at the first sign of any trouble from a psychiatric standpoint. He agrees to do so. PAST PSYCHIATRIC HISTORY The patient reports a history of anxiety previously treated with Klonopin. She denies any other psychiatric history. She denies any history of suicide attempts or admissions. FAMILY HISTORY The patient notes "I didn't come from no [place] family, but they are not documented as being nuts." No reported family history of suicide. CHEMICAL DEPENDENCY HISTORY The patient endorses a history of alcohol use but denies any current substance use. SOCIAL HISTORY The patient reports that she was 19 years ago and does admit that the anniversary of her 's passing is coming up but she says that the time that he passed was so remote that it no longer has any significant effect on her. She has grown children but no grandchildren. She is high school educated. 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 Denies any or legal history. She reports that she does keep a revolver at home. She lives with her youngest son with whom I have spoken. She is Yarsanism. PAST MEDICAL HISTORY Includes a history of multiple sclerosis. REVIEW OF SYSTEMS No reported physical complaints at this time. PHYSICAL EXAMINATION VITAL SIGNS: Temperature is 98.1, pulse 72, respirations 20, blood pressure 95/42, pulse oximetry 98% on room air. Physical exam completed by ED provider. On my examination today, the patient appears to be in no acute physical distress. Appears to be attending to basic needs. No abnormal motor movements noted. LABORATORIES Laboratories reviewed: Toxicology negative and alcohol level undetectable. CBC unremarkable. CMP significant for mild hyperglycemia in a nonfasting sample. MENTAL STATUS EXAMINATION The patient is in a hospital gown. She is awake and alert and oriented x3. No motor abnormalities noted. No evidence of delirium. Speech is within normal limits for rate, tone and volume. Language and fund of knowledge seem average. Mood is somewhat dysphoric and affect is restricted. Thought process linear. No loosening of associations. No evident delusions. Denies audiovisual hallucinations. Denies suicidal or homicidal ideation, intent or plan on direct questioning. Insight and judgment are fair. ASSESSMENT AND PLAN 1. Adjustment disorder, unspecified, F43.20 This is a 41-year-old female with psychiatric history as detailed above who presents under a Hernandez Act alleging suicidal ideation. On my examination today, the patient denies suicidal or homicidal ideation. Son has provided reassuring collateral. The patient appears to be attending to her basic needs. No evidence of any severely unstable mood, anxiety or psychotic disorder in this patient at this time. Putting all this information together and weighing the relevant factors, I patch driller the patient does not meet Hernandez Act criteria. I have lifted the Hernandez Act. I have recommended that the patient pursue outpatient mental health treatment. I have counseled the patient regarding warning signs for need to return to the psychiatric emergency room as part of a general safety plan. The patient is otherwise psychiatrically clear for discharge from the ED. Thank you very much for this consultation. Consuelo SWAN /8:36 AM /12:15 PM MARCUS
[2016-08-13] MEDS ORDERED: D-20TAB3 PO (14:01)
[2016-08-13] MEDS ORDERED: FURO1TAB62 PO (14:01)
[2016-08-13] MEDS ORDERED: CYAN100025 SL (14:01)
== END 2016-07-17 09:55 | disposition home or self-care (01) ==
LOC: NEPD 23:12
DX: F43.20 Adjustment disorder, unspecified (principal); Z95.0 Presence of cardiac pacemaker; I48.91 Unspecified atrial fibrillation; G35 Multiple sclerosis; E78.00 Pure hypercholesterolemia, unspecified; I50.9 Heart failure, unspecified; H91.90 Unspecified hearing loss, unspecified ear; K21.9 Gastro-esophageal reflux disease without esophagitis; Z86.73 Personal history of transient ischemic attack (TIA), and cerebral infarction without residual deficits
CPT/HCPCS: 80053; 80307; 84703; 85025; 96372; 99284; J1200

== ENCOUNTER 2016-12-01 23:49 | Emergency (ER) | payer BC ==
[~2016-12-01] VITALS: Ht 170.2 cm; Wt 68.0 kg
[~2016-12-01 23:49] MED LIST changes: -CHOL50006 PO; +CYAN100025 SL; +D-20TAB3 PO; +FURO1TAB62 PO; +GABA600T PO; -LEVE500 PO; -PLAQ200T PO; -VITA50TA10 PO
[2016-12-02] MEDS ORDERED: PROM12.54 PO (00:26)
[2016-12-02] MEDS ORDERED: PANT20TA2 PO (00:26)
[2016-12-02] MEDS ORDERED: AMIT24CA5 PO (00:26)
[2016-12-02] MEDS ORDERED: MORP1TAB25 PO (00:26)
[2016-12-02] MEDS ORDERED: BETH10TA2 PO (00:26)
[2016-12-02] MEDS ORDERED: VIST25CA PO (00:34)
--- NOTE | 2016-12-02 00:34 | PD ---
HPI Chief Complaint: Anxiety Time Seen by Provider: 00:25 Travel History International Travel<30 days: No Contact w/Intl Traveler<30days: No Traveled to known affect area: No History of Present Illness HPI 46-year-old female with history of multiple medical comorbidities, MS and anxiety, presents to the department for evaluation of an anxiety attack. Patient states that her new primary care provider stopped prescribing her Klonopin. He he wants her to see a psychiatrist to manage her anxiety. Patient states she has not had her Klonopin and began having a panic attack this evening. She states she has been unable to calm herself down. Denies a chest x-ray or tightness. No difficulty breathing. She just feels extremely anxious. Is requesting me to refill her Klonopin. No other symptoms to report. PFSH Past Medical History Hx Anticoagulant Therapy: No Anemia: Yes Arthritis: No Asthma: No Atrial Fibrillation: Yes Autoimmune Disease: Yes (MS 2007/ has undergone plasma exchange therapy) Blood Disorders: No Anxiety: Yes Depression: Yes Heart Rhythm Problems: Yes (severe bradicardia, pacer placed/ vagal nerve dysfunction/) Cancer: Yes (uterine and ovarian) Cardiac Catheterization: No Cardiovascular Problems: Yes High Cholesterol: Yes Chemotherapy: No Chest Pain: No Congestive Heart Failure: Yes COPD: No Cerebrovascular Accident: Yes Diabetes: No Diminished Hearing: Yes (HEARING AIDS) Endocrine: No GERD: Yes Glaucoma: No Genitourinary: Yes Headaches: Yes Hepatitis: No Hiatal Hernia: No Heparin Induced Thrombocytopen: No Hypertension: No Immune Disorder: Yes (MS) Implanted Vascular Access Dvce: Yes (PACEMAKER,MEDTRONIC ) Kidney Stones: No Medical other: Yes (reflux,stomach ulcers) Musculoskeletal: Yes (chronic neck and back pain) Neurologic: Yes (HX OF SEIZURES, MS, TIA) Psychiatric: Yes (DEPRESSION) Reproductive: Yes (ENDOMETRIOSIS ) Respiratory: Yes (RESP FAILURE) Immunizations Current: Yes Migraines: Yes Myocardial Infarction: No Renal Failure: No Seizures: Yes ( A CHILD, RESOLVED) Sickle Cell Disease: No Sleep Apnea: No Thyroid Disease: No Ulcer: No ?: Not Menopausal: Yes : 3 Para: 3 Miscarriage: 0 : 0 Ovarian Cysts: Yes Tubal Ligation: Yes Past Surgical History Abdominal Surgery: Yes AICD: No Appendectomy: Yes Arteriovenous Shunt: No Cardiac Surgery: Yes (PACEMAKER 2011 multiple sclerosis complications, vagal nerve dysfn.) Section: Yes Cholecystectomy: Yes Coronary Artery Bypass Graft: No Ear Surgery: No Endocrine Surgery: No Eye Surgery: No Genitourinary Surgery: No Gynecologic Surgery: Yes (ENDOMETRIOSIS) Hysterectomy: Yes Insulin Pump: No Joint Replacement: No Neurologic Surgery: No Oral Surgery: No Pacemaker: Yes (UNKNOWN ) Thoracic Surgery: No Other Surgery: Yes (, REMOVAL OF GALLBLADDER) Family History Family Myocardial Infarction: Yes (mother had cabgX4, father had kisha disease per pt) Social History Alcohol Use: No Tobacco Use: No Substance Use: No Allergies-Medications (Allergen,Severity, Reaction): Coded Allergies: Fish Containing Products (Unverified Allergy, Severe, including all shell fish causes anaphylactic, 12/02/16) Sulfa (Sulfonamide Antibiotics) (Unverified Allergy, Severe, hives, ) acetaminophen (Unverified Allergy, Severe, HIVES, 12/02/16) adhesive (Unverified Allergy, Severe, MAKES MY SKIN BLEED, 12/02/16) carbamazepine (Unverified Allergy, Severe, cardiac arrest, 12/02/16) codeine (Unverified Allergy, Severe, SEIZURE, 12/02/16) iodine (Unverified Allergy, Severe, Anaphylaxis, 12/02/16) latex (Unverified Allergy, Severe, HIVES, 12/02/16) meperidine (Unverified Allergy, Severe, anaphylactic shock, 12/02/16) oxycodone (Unverified Allergy, Severe, HIVES, 12/02/16) phenobarbital (Unverified Allergy, Severe, hives, 12/02/16) phenytoin (Unverified Allergy, Severe, HIVES, 12/02/16) potassium iodide (Unverified Allergy, Severe, Anaphylaxis, 12/02/16) povidone-iodine (Unverified Allergy, Severe, Anaphylaxis, 12/02/16) propoxyphene (Unverified Allergy, Severe, SWELLING OF THE THROAT, 12/02/16) shellfish derived (Unverified Allergy, Severe, Sweeling to throat, 12/02/16 ) sodium iodide (Unverified Allergy, Severe, Anaphylaxis, 12/02/16) sodium iodide (Unverified Allergy, Severe, Anaphylaxis, 12/02/16) Reported Meds & Prescriptions Reported Meds & Active Scripts Active Vistaril (Hydroxyzine Pamoate) 25 Mg Cap 25 Mg PO Q6H PRN Reported Promethazine (Promethazine HCl) 12.5 Mg Tab 25 Mg PO Q4H PRN Pantoprazole (Pantoprazole Sodium) 20 Mg Tab 40 Mg PO DAILY Bethanechol 10 Mg Tab 10 Mg PO Q8HR Morphine ER (Morphine Sulfate) 30 Mg Tab 30 Mg PO BID Amitiza (Lubiprostone) 24 Mcg Cap 24 Mg PO BID Lasix (Furosemide) 20 Mg Tab 20 Mg PO DAILY B-12 (Cyanocobalamin) 1,000 Mcg Subl 1,000 Mcg SL DAILY D-2000 Maximum Strength (Cholecalciferol) 2,000 Unit Tab 5,000 Units PO DAILY Gabapentin 600 Mg Tab 600 Mg PO HS Midodrine 10 Mg Tab 10 Mg PO TID Hydromorphone (Hydromorphone HCl) 2 Mg Tab 2 Mg PO Q4H PRN Lactulose Liq (Lactulose (Encephalopathy) Liq) 19 Gm/15 Ml Soln 15 Ml PO DAILY Digoxin 0.125 Mg Tab 0.125 Mg PO DAILY Effexor XR 24 HR (Venlafaxine HCl) 150 Mg Cap 150 Mg PO BID Clonazepam 1 Mg Tab 1 Mg PO BID Copaxone Inj (Glatiramer Inj) 20 Mg/Ml Syr 20 Mg SQ DAILY Review of Systems Except as stated in HPI: all other systems reviewed are Neg Physical Exam Narrative GENERAL: Well-nourished female patient, sitting in bed in no acute distress. SKIN: Focused skin assessment warm/dry. HEAD: Atraumatic. Normocephalic. EYES: Pupils equal and round. No scleral icterus. No injection or drainage. ENT: No nasal bleeding or discharge. Mucous membranes pink and moist. NECK: Trachea midline. No JVD. CARDIOVASCULAR: Regular rate and rhythm. No murmur appreciated. RESPIRATORY: No accessory muscle use. Clear to auscultation. Breath sounds equal bilaterally. GASTROINTESTINAL: Abdomen soft, non-tender, nondistended. Hepatic and splenic margins not palpable. MUSCULOSKELETAL: No obvious deformities. No clubbing. No cyanosis. No edema. NEUROLOGICAL: Awake and alert. No obvious cranial nerve deficits. Motor grossly within normal limits. Normal speech. Data Data Orders Orders Clonazepam (Klonopin) (12/02/16 00:45) [facility] Medical Decision Making Medical Screen Exam Complete: Yes Emergency Medical Condition: Yes Medical Record Reviewed: Yes Differential Diagnosis Mood disorder versus personality disorder versus just a reaction disorder versus benzodiazepine dependency. Narrative Course 46 year-old female presents to emergency department for evaluation following a panic attack. Patient does appear anxious however her heart rate is not tachycardic. Her vital signs are stable. Slight her that I would not refill her Klonopin. I can give her one here and I'll give her prescription for Vistaril but strongly encouraged her to follow her anemia care providers advice and seek psychiatry evaluation. She is satisfied with getting a Klonopin here but not really happy about Vistaril for home however she said she will give it a try.. She'll be discharged at this time. Diagnosis Primary Impression: Anxiety Additional Impression: Panic anxiety syndrome Referrals: Primary Care Physician Psychiatrist Patient Instructions: Anxiety (ED), General Instructions Additional Instructions: It is Important that you follow up with a psychiatrist for management of your anxiety Follow-up with a primary care provider Return immediately to the emergency department with any acute worsening of symptoms Med/Other Pt SpecificInfo: Prescription(s) given Scripts Hydroxyzine Pamoate (Vistaril) 25 Mg Cap 25 MG PO Q6H Y for ANXIETY AND/OR AGITATION, #30 CAP 0 Refills Prov: Oksana Dennis 12/02/16 Disposition: 01 DISCHARGE HOME Condition: Stable Oksana Dennis Dec 02, 2016 00:34
[2016-12-02] MEDS ORDERED: clonazePAM 1 MG TAB PO ONE (00:45)
== END 2016-12-02 00:55 | disposition home or self-care (01) ==
LOC: NEPD 23:49
DX: F41.0 Panic disorder [episodic paroxysmal anxiety] (principal); G35 Multiple sclerosis
CPT/HCPCS: 99283

== ENCOUNTER 2016-12-22 02:09 | Observation (INO) | payer BC ==
[~2016-12-22] VITALS: Ht 165.1 cm; Wt 75.0 kg
[2016-12-22] VITALS (14 sets, daily range): BP systolic 80–113; BP diastolic 51–71; PULSE 69–82; RESP 14–20; TEMP 97.5–99.2; O2SAT 93–98
[~2016-12-22 02:09] MED LIST changes: +AMIT24CA5 PO; +BETH10TA2 PO; -LOVA20TA PO; +MORP1TAB25 PO; +PANT20TA2 PO; +PROM12.54 PO; +VIST25CA PO
--- NOTE | 2016-12-22 02:25 | PD ---
HPI Chief Complaint: Seizure Time Seen by Provider: 02:20 Travel History International Travel<30 days: No Contact w/Intl Traveler<30days: No Traveled to known affect area: No History of Present Illness HPI The patient is a 46 year old female who presents to the [facility] emergency department with a history of seizure activity that occurred prior to arrival. She had a witnessed seizure by ambulance services and they gave Ativan 2 mg prior to arrival. She reports that she gets a strange taste in her mouth with lights in front of her eyes prior to having the seizures. She reports that her seizures are related to multiple sclerosis and exacerbations. She reports that she does not take any antiepileptic medications on a regular basis. She reports that she is currently experiencing an exacerbation of her multiple sclerosis as she has had weakness of her lower extremities for 1 week. She is also having tingling down both legs in the back of her legs over the past week. She reports that this is causing severe pain. She reports that when she has multiple sclerosis exacerbations she usually requires hydromorphone 1 mg IV every 4 hours for pain. On review of systems, she denies having any recent fevers, worsening cough or congestion, neck pain, chest pain, shortness of breath, abdominal pain, vomiting, diarrhea, urinary symptoms, or other neurologic symptoms. She has a chronic cough. She denies having any problems with constipation. She last moved her bowels yesterday. The patient' s blood sugar was noted to be 94 by ambulance services prior to arrival. Neurologist: Dr. Miller. PCP: lisette Pigs Feet Cleaner: Dr. Radha MCGEE Past Medical History Narrative Medical The patient's past medical history is significant for multiple sclerosis, seizures with MS exacerbations, seizure disorder as a child, uterine and ovarian cancer, eosinophilic esophagitis, paraplegia with MS exacerbations in the past, chronic pain, peripheral neuropathy, history of a CVA/TIA, history of SVT, rheumatoid arthritis. The patient reports a history of having plasma exchanges done 5 times previously related to multiple sclerosis exacerbations. Hx Anticoagulant Therapy: No Anemia: Yes Arthritis: No Asthma: No Atrial Fibrillation: Yes Autoimmune Disease: Yes (MS 2007/ has undergone plasma exchange therapy) Blood Disorders: No Anxiety: Yes Depression: Yes Heart Rhythm Problems: Yes (severe bradicardia, pacer placed/ vagal nerve dysfunction/) Cancer: Yes (uterine and ovarian) Cardiac Catheterization: No Cardiovascular Problems: Yes High Cholesterol: Yes Chemotherapy: No Chest Pain: No Congestive Heart Failure: Yes COPD: No Cerebrovascular Accident: Yes Diabetes: No Diminished Hearing: Yes (HEARING AIDS) Endocrine: No GERD: Yes Glaucoma: No Genitourinary: Yes Headaches: Yes Hepatitis: No Hiatal Hernia: No Heparin Induced Thrombocytopen: No Hypertension: No Immune Disorder: Yes (MS) Implanted Vascular Access Dvce: Yes (PACEMAKER,MEDTRONIC ) Kidney Stones: No Medical other: Yes (reflux,stomach ulcers) Musculoskeletal: Yes (chronic neck and back pain) Neurologic: Yes (HX OF SEIZURES, MS, TIA) Psychiatric: Yes (DEPRESSION) Reproductive: Yes (ENDOMETRIOSIS ) Respiratory: Yes (RESP FAILURE) Immunizations Current: Yes Migraines: Yes Myocardial Infarction: No Renal Failure: No Seizures: Yes ( A CHILD, RESOLVED) Sickle Cell Disease: No Sleep Apnea: No Thyroid Disease: No Ulcer: No ?: Unknown Menopausal: Yes : 3 Para: 3 Miscarriage: 0 : 0 Ovarian Cysts: Yes Tubal Ligation: Yes Past Surgical History Narrative Surgical The patient's past surgical history is significant for TIFFANIE, appendectomy, BTL, cholecystectomy, esophageal dilatation x2. Abdominal Surgery: Yes AICD: No Appendectomy: Yes Arteriovenous Shunt: No Cardiac Surgery: Yes (PACEMAKER 2011 multiple sclerosis complications, vagal nerve dysfn.) Section: Yes Cholecystectomy: Yes Coronary Artery Bypass Graft: No Ear Surgery: No Endocrine Surgery: No Eye Surgery: No Genitourinary Surgery: No Gynecologic Surgery: Yes (ENDOMETRIOSIS) Hysterectomy: Yes Insulin Pump: No Joint Replacement: No Neurologic Surgery: No Oral Surgery: No Pacemaker: Yes (UNKNOWN ) Thoracic Surgery: No Other Surgery: Yes (, REMOVAL OF GALLBLADDER) Family History Family Myocardial Infarction: Yes (mother had cabgX4, father had kisha disease per pt) Social History Alcohol Use: No Tobacco Use: No Substance Use: No Allergies-Medications (Allergen,Severity, Reaction): Coded Allergies: Fish Containing Products (Unverified Allergy, Severe, including all shell fish causes anaphylactic, 12/22/16) Sulfa (Sulfonamide Antibiotics) (Unverified Allergy, Severe, hives, ) acetaminophen (Unverified Allergy, Severe, HIVES, 12/22/16) adhesive (Unverified Allergy, Severe, MAKES MY SKIN BLEED, 12/22/16) carbamazepine (Unverified Allergy, Severe, cardiac arrest, 12/22/16) codeine (Unverified Allergy, Severe, SEIZURE, 12/22/16) iodine (Unverified Allergy, Severe, Anaphylaxis, 12/22/16) latex (Unverified Allergy, Severe, HIVES, 12/22/16) meperidine (Unverified Allergy, Severe, anaphylactic shock, 12/22/16) oxycodone (Unverified Allergy, Severe, HIVES, 12/22/16) phenobarbital (Unverified Allergy, Severe, hives, 12/22/16) phenytoin (Unverified Allergy, Severe, HIVES, 12/22/16) potassium iodide (Unverified Allergy, Severe, Anaphylaxis, 12/22/16) povidone-iodine (Unverified Allergy, Severe, Anaphylaxis, 12/22/16) propoxyphene (Unverified Allergy, Severe, SWELLING OF THE THROAT, 12/22/16 ) shellfish derived (Unverified Allergy, Severe, Sweeling to throat, ) sodium iodide (Unverified Allergy, Severe, Anaphylaxis, 12/22/16) sodium iodide (Unverified Allergy, Severe, Anaphylaxis, 12/22/16) Reported Meds & Prescriptions Reported Meds & Active Scripts Active Vistaril (Hydroxyzine Pamoate) 25 Mg Cap 25 Mg PO Q6H PRN Reported Promethazine (Promethazine HCl) 12.5 Mg Tab 25 Mg PO Q4H PRN Pantoprazole (Pantoprazole Sodium) 20 Mg Tab 40 Mg PO DAILY Bethanechol 10 Mg Tab 10 Mg PO Q8HR Morphine ER (Morphine Sulfate) 30 Mg Tab 30 Mg PO BID Amitiza (Lubiprostone) 24 Mcg Cap 24 Mg PO BID Lasix (Furosemide) 20 Mg Tab 20 Mg PO DAILY B-12 (Cyanocobalamin) 1,000 Mcg Subl 1,000 Mcg SL DAILY D-2000 Maximum Strength (Cholecalciferol) 2,000 Unit Tab 5,000 Units PO DAILY Gabapentin 600 Mg Tab 600 Mg PO HS Midodrine 10 Mg Tab 10 Mg PO TID Hydromorphone (Hydromorphone HCl) 2 Mg Tab 2 Mg PO Q4H PRN Lactulose Liq (Lactulose (Encephalopathy) Liq) 19 Gm/15 Ml Soln 15 Ml PO DAILY Digoxin 0.125 Mg Tab 0.125 Mg PO DAILY Effexor XR 24 HR (Venlafaxine HCl) 150 Mg Cap 150 Mg PO BID Clonazepam 1 Mg Tab 1 Mg PO BID Copaxone Inj (Glatiramer Inj) 20 Mg/Ml Syr 20 Mg SQ DAILY Review of Systems Except as stated in HPI: all other systems reviewed are Neg General / Constitutional: No: Fever Eyes: No: Visual changes HENT: No: Headaches Cardiovascular: No: Chest Pain or Discomfort Respiratory: No: Shortness of Breath Gastrointestinal: Positive: Nausea, No: Vomiting, Diarrhea, Abdominal Pain Genitourinary: No: Dysuria Musculoskeletal: No: Pain Skin: No Rash Neurologic: Positive: Weakness, Paresthesia, Seizures, No: Focal Abnormalities , Change in Mentation, Slurred Speech, Sensory Disturbance Psychiatric: No: Depression Endocrine: No: Polydipsia Hematologic/Lymphatic: No: Easy Bruising Physical Exam Narrative General: The patient is a well-developed well-nourished female in no acute distress. The patient is somewhat slow to answer questions on examination, likely related to either her postictal state versus Ativan administration by ambulance services. Head and Neck exam: Head is normocephalic atraumatic. Eyes: EOMI, pupils are equal round and reactive to light. Nose: Midline septum with pink mucous membranes Mouth: Dentition unremarkable. Moist mucus membranes. Posterior oropharynx is not erythematous. No tonsillar hypertrophy. Uvula midline. Airway patent. Neck: No palpable lymphadenopathy. No nuchal rigidity. No thyromegaly. Cardiovascular: Regular rate and rhythm without murmurs, gallops, or rubs. Lungs: Clear to auscultation bilaterally. No wheezes, rhonchi, or rales. Abdomen: Soft, without tenderness to palpation in all 4 quadrants of the abdomen. No guarding, rebound, or rigidity. Normal bowel sounds are audible. No tenderness on palpation of McBurney's point. Extremities: No clubbing, cyanosis, or edema. 2+ pulses in all 4 extremities. Back: No spinous process tenderness to palpation. No costovertebral angle tenderness to palpation. Neurologic Exam: The patient has cranial 2 through 12 intact. The patient has strength is 5 over 5 in bilateral upper extremities, 4 over 5 in bilateral lower extremities. The patient reports tingling sensations in bilateral lower extremities. The patient is oriented to person, place, time, and situation. Skin Exam: No rash noted. Intact skin that is warm and dry. Data Data Last Documented VS Vital Signs Date Time Temp Pulse Resp B/P (MAP) Pulse Ox O2 Delivery O2 Flow Rate FiO2 12/22/16 02:27 98 Room Air 12/22/16 02:25 80 14 Orders Orders Electrocardiogram (12/22/16 02:22) Complete Blood Count With Diff (12/22/16 02:22) Comprehensive Metabolic Panel (12/22/16 02:22) Lipase (12/22/16 02:22) Urinalysis - C+S If Indicated (12/22/16:22) Cath For Specimen (12/22/16:22) Westergren Sedimentation Rate (12/22/16 02:22) Magnesium (Mg) (12/22/16 02:22) Digoxin (12/22/16 02:22) Chest, Single Ap (12/22/16 02:22) Iv Access Insert/Monitor (12/22/16 02:22) Ecg Monitoring (12/22/16 02:22) Oximetry (12/22/16 02:22) Sodium Chlor 0.9% 1000 Ml Inj (Ns 1000 M (12/22/16 02:30) Levetiracetam Inj (Keppra Inj) (12/22/16 02:30) Hydromorphone Pf Inj (Dilaudid Pf Inj) (12/22/16 03:00) Ondansetron Inj (Zofran Inj) (12/22/16 03:00) Urine Culture (12/22/16 03:10) Hydromorphone Pf Inj (Dilaudid Pf Inj) (12/22/16 04:15) Ceftriaxone Inj (Rocephin Inj) (12/22/16 04:15) Levetiracetam Inj (Keppra Inj) (12/22/16 04:15) Methylprednisolone So Succ Inj (Solumedr (12/22/16 04:15) Admit Order (Ed Use Only) (12/22/16 04:29) Place In Observation (12/22/16 ) Vital Signs (Adult) Q4H (12/22/16 04:30) Activity Oob With Assistance (12/22/16 04:30) Dressing Room Attendant / Telemetry .CONTINUOUS (12/22/16 04:30) Diet Heart Healthy (12/22/16 Breakfast) Sodium Chloride 0.9% Flush (Ns Flush) (12/22/16 04:30) Sodium Chloride 0.9% Flush (Ns Flush) (12/22/16 09:00) Basic Metabolic Panel (Bmp) (12/23/16 06:00) Complete Blood Count With Diff (12/23/16 06:00) Case Management Consult (12/22/16 04:30) Naloxone Inj (Narcan Inj) (12/22/16 04:30) Consult Neurology (12/22/16 ) Eeg Study (12/22/16 ) ^ Other Nursing Orders (12/22/16 04:30) Labs Laboratory Tests Test 12/22/16 02:30 12/22/16 03:10 White Blood Count 6.4 TH/MM3 Red Blood Count 4.82 MIL/MM3 Hemoglobin 13.5 GM/DL Hematocrit 39.8 % Mean Corpuscular Volume 82.6 FL Mean Corpuscular Hemoglobin 28.0 PG Mean Corpuscular Hemoglobin Concent 33.9 % Red Cell Distribution Width 12.8 % Platelet Count 152 TH/MM3 Mean Platelet Volume 9.4 FL Neutrophils (%) (Auto) 40.8 % Lymphocytes (%) (Auto) 40.5 % Monocytes (%) (Auto) 10.8 % Eosinophils (%) (Auto) 7.5 % Basophils (%) (Auto) 0.4 % Neutrophils # (Auto) 2.6 TH/MM3 Lymphocytes # (Auto) 2.6 TH/MM3 Monocytes # (Auto) 0.7 TH/MM3 Eosinophils # (Auto) 0.5 TH/MM3 Basophils # (Auto) 0.0 TH/MM3 CBC Comment DIFF FINAL Differential Comment Erythrocyte Sedimentation Rate 18 mm/hr Blood Urea Nitrogen 8 MG/DL Creatinine 0.53 MG/DL Random Glucose 93 MG/DL Total Protein 6.8 GM/DL Albumin 3.4 GM/DL Calcium Level 7.9 MG/DL Magnesium Level 2.2 MG/DL Alkaline Phosphatase 86 U/L Aspartate Amino Transf (AST/SGOT) 29 U/L Alanine Aminotransferase (ALT/SGPT) 29 U/L Total Bilirubin 0.2 MG/DL Sodium Level 138 MEQ/L Potassium Level 3.8 MEQ/L Chloride Level 107 MEQ/L Carbon Dioxide Level 21.9 MEQ/L Anion Gap 9 MEQ/L Estimat Glomerular Filtration Rate 125 ML/MIN Lipase 188 U/L Digoxin Level 0.2 NG/ML Urine Color LIGHT-YELLOW Urine Turbidity CLEAR Urine pH 5.0 Urine Specific [place] 1.009 Urine Protein NEG mg/dL Urine Glucose (UA) NEG mg/dL Urine Ketones NEG mg/dL Urine Occult Blood NEG Urine Nitrite NEG Urine Bilirubin NEG Urine Urobilinogen LESS THAN 2.0 MG/DL Urine Leukocyte Esterase LARGE Urine RBC 5 /hpf Urine WBC 24 /hpf Urine Squamous Epithelial Cells <1 /hpf Urine Transitional Epithelial Cells 1 /hpf Urine Bacteria RARE /hpf Urine Mucus FEW /lpf Microscopic Urinalysis Comment CULTURE INDICATED MDM Medical Decision Making Medical Screen Exam Complete: Yes Emergency Medical Condition: Yes Medical Record Reviewed: Yes Interpretation(s) Last Impressions Chest X-Ray 12/22/16 0222 Signed Impressions: Service Date/Time: Thursday, December 22, 2016 02:40 - CONCLUSION: No acute disease. Manjeet Delaney MD Differential Diagnosis Multiple sclerosis exacerbation, versus seizure disorder, versus pseudoseizures , versus electrolyte derangements Narrative Course During the course of the patients emergency department visit, the patients history, examination, and differential diagnosis were reviewed with the patient. The patient had IV access obtained and blood work sent for analysis. The patient was placed on a quality assurance monitor body with oximetry and blood pressure monitoring. An ECG was done on arrival. The patient's ECG shows a sinus rhythm heart rate of 78, left anterior fascicular block. No acute ST segment elevation. T waves are inverted in V1, V2. The patient's electronic medical record was reviewed. The patient was admitted in the past related to repeated seizure activity requiring Ativan administration multiple times in the emergency department followed by respiratory depression requiring intubation. The patient was initially provided Keppra 500 mg IV, normal saline 1 L IV fluid bolus, hydromorphone 0.5 mg IV, Zofran 4 mg IV. The patient's prior record reveals that the patient was loaded with 1 g of Keppra, therefore an additional 500 mg will be administered. As the patient reports having an exacerbation of her multiple sclerosis, Solu-Medrol is also administered at 125 mg IV. The patients laboratory studies were reviewed and remarkable for a CBC that is unremarkable, sedimentation rate is 18, CMP is unremarkable, lipase 188, urinalysis shows large leukocyte esterase, 5 RBCs, 24 wbc's, rare bacteria, culture indicated. The patient was given Rocephin 1 g IV. Digoxin level was noted to be 0.2. Radiology studies were reviewed and remarkable for a chest x-ray that shows no acute cardiopulmonary disease per The patients results were discussed with the patient, including the plan of care. I explained that further testing and/ or monitoring is indicated based on the patients history, examination, and/ or laboratory findings. Therefore, I recommended admission for additional evaluation. The patient expressed understanding and was agreeable with this plan. The patient was admitted to the hospital in stable condition and sent to a bed under the care of the [facility]. Physician Communication Physician Communication The patient's case was discussed with Dr. Santoro who did agree to admit the patient for further evaluation and treatment at this time. Diagnosis Primary Impression: Recurrent seizures Additional Impressions: Multiple sclerosis exacerbation Urinary tract infection Qualified Codes: N30.00 - Acute cystitis without hematuria Admitting Information Admitting Physician Requests: it Marily Louis MD Dec 22, 2016 02:25
[2016-12-22] MEDS ORDERED: levETIRAcetam INJ 500 MG in SODIUM CHLORIDE 0.9% INJ 100 ML IV ONE ×2 (02:30→04:15)
[2016-12-22] MEDS ORDERED: SODIUM CHLOR 0.9% 1000 ML INJ 1,000 ML IV ONE (02:30)
[2016-12-22 02:49] LABS: AUTOMATED NEUTROPHIL # 2.6 TH/MM3 (1.8-7.7); BASOPHIL % 0.4 % (0.0-2.0); EOSINOPHIL # 0.5 TH/MM3 (0-0.4); EOSINOPHIL % 7.5 % (0.0-4.0); HEMATOCRIT 39.8 % (35.0-46.0); HEMO FLAGS DIFF FINAL; LYMPH % 40.5 % (9.0-44.0); LYMPHOCYTE # 2.6 TH/MM3 (1.0-4.8); MEAN CELL VOLUME 82.6 FL (80.0-100.0); MEAN CORPUSCULAR HGB CONC 33.9 % (32.0-36.0); MONO % 10.8 % (0.0-8.0); NEUT % 40.8 % (16.0-70.0); PLATELET COUNT 152 TH/MM3 (150-450); RED BLOOD COUNT 4.82 MIL/MM3 (4.00-5.30); RED CELL DISTRIBUTION WIDTH 12.8 % (11.6-17.2); WHITE BLOOD COUNT 6.4 TH/MM3 (4.0-11.0)
--- NOTE | 2016-12-22 02:54 | RADRPT ---
EXAM DATE/TIME: 12/22/2016 02:40 [facility] COMPARISON: CHEST SINGLE AP, June 06, 2016, 15:26. INDICATIONS : Shortness of breath. MEDICAL HISTORY : Congestive heart failure. SURGICAL HISTORY : Pacemaker. ENCOUNTER: Initial ACUITY: 1 day PAIN SCORE: 0/10 LOCATION: Bilateral chest FINDINGS: Pacemaker device is noted with control pack over the right chest. Lungs are focally clear. No pleural effusion is evident. Cardiac contours are satisfactory. CONCLUSION: No acute disease. Manjeet Delaney MD on December 22, 2016 at 2:52 Board Certified Radiologist. This report was verified electronically.
[2016-12-22] MEDS ORDERED: ONDANSETRON HCL 4 MG/2 ML VIAL IV PUSH ONE (03:00)
[2016-12-22] MEDS ORDERED: HYDROmorphone HCL PF 1 MG/ML VIAL IV PUSH ONE ×2 (03:00→04:15)
[2016-12-22 03:18] LABS: BACTERIA, URINE RARE /hpf; BLOOD, URINE NEG (NEG); COMMENT (UR) CULTURE INDICATED; CULTURE IF INDICATED CULTURE INDICATED; GLUCOSE,URINE NEG (NEG); KETONE, URINE NEG (NEG); MUCUS URINE FEW /lpf (OCC); NITRITE,URINE NEG (NEG); SQUAMOUS EPITHELIAL CELL URINE <1 /hpf (0-5); TRANSITIONAL EPI CELLS, URINE 1 /hpf; URINE COLOR LIGHT-YELLOW (YELLW/STRAW)
[2016-12-22 03:31] LABS: ALKALINE PHOSPHATASE 86 U/L (45-117); DIGOXIN 0.2 NG/ML (0.8-2.0); TOTAL BILIRUBIN ADULT 0.2 MG/DL (0.2-1.0)
[2016-12-22 03:47] LABS: ALT (GPT) 29 U/L (10-53); ANION GAP 9 MEQ/L (5-15); AST (GOT) 29 U/L (15-37); BICARBONATE 21.9 MEQ/L (21.0-32.0); BLOOD UREA NITROGEN 8 MG/DL (7-18); CHLORIDE 107 MEQ/L (98-107); GLOMERULAR FILTRATION RATE 125 ML/MIN (>89); MAGNESIUM 2.2 MG/DL (1.5-2.5); POTASSIUM 3.8 MEQ/L (3.5-5.1); SODIUM (NA) 138 MEQ/L (136-145)
[2016-12-22] MEDS ORDERED: cefTRIAXone INJ 1,000 MG in SODIUM CHLORIDE 0.9% INJ 100 ML IV ONE (04:15)
[2016-12-22] MEDS ORDERED: methylPREDNISolone SOD SUCC 125 MG/2 ML VIAL IV PUSH ONE (04:15)
[2016-12-22] MEDS ORDERED: SODIUM CHLORIDE 0.9% FLUSH 10 ML FLUSH IV FLUSH PRN (04:30)
[2016-12-22] MEDS ORDERED: NALOXONE HCL 0.4 MG/ML AMP IV PUSH PRN (04:30)
[2016-12-22] MEDS ORDERED: PROMETHAZINE INJ 25 MG/ML VIAL IM ONE (04:45)
--- NOTE | 2016-12-22 05:58 | HHI.HP ---
[facility] Unknown Admission Diagnosis recurrent seizure activity, UTI Diagnoses: Chief Complaint: seizure at home Travel History International Travel<30 Days: No Contact w/Intl Traveler <30 Da: No Traveled to Known Affected Are: No History of Present Illness Written by CINDY Caballero acting as scribe for [Maude] on 12/22/16 at 05: 57. 46 y/o female with a history of seizures (not on medication), MS, CVA, and RA was brought to the ED after a witnessed seizure. She states her son took pictures of her having a seizure and then called evac. She states she feels the seizures coming on when she gets a bad smell or taste in her mouth, then she sees spots, then everything goes black. She states her Last seizure was 2015, but according to EMR it was July 2016. She complains of trouble peeing, and dysuria. She denies any chest pain, sob, fever or chills. Neurologist: Dr. Randle PCP: Dr. Palacios Review of Systems Except as stated in HPI: all other systems reviewed are Neg Past Family Social History Past Medical History Multiple sclerosis. 2008 (she states she will presented with a CVA, MRI showed 7 lesions in the frontal area. She also has 2 lesions of the spinal cord at T3/ T4 and sacral). Constipation and urinary incontinence Hearing loss, has hearing aids, she does not wear them. Balance problems, history of recurrent paraplegia 4, due to MS, requiring exchange transfusion treatments. CVA 2008 Rheumatoid arthritis diagnosed at age 18 and 1989. She is not on any treatment. Pacemaker (she states she presented with severe bradycardia and was diagnosed with conduction system disorder. Double lead pacemaker was placed on the right side. Multiple cardiac arrest/respiratory arrest: She states she has been intubated 6. Since 2007. Seizures Low back pain-states she has sharp pains in the low back radiating to both legs (she has been followed by [facility], pain pump has been considered) Anxiety and depression. Past Surgical History Pacemaker placement in 2010 Appendectomy Cholecystectomy Removal of ovarian tumor Esophageal dilatation 2 Reported Medications Reported Meds & Active Scripts Active Vistaril (Hydroxyzine Pamoate) 25 Mg Cap 25 Mg PO Q6H PRN Reported Promethazine (Promethazine HCl) 12.5 Mg Tab 25 Mg PO Q4H PRN Pantoprazole (Pantoprazole Sodium) 20 Mg Tab 40 Mg PO DAILY Bethanechol 10 Mg Tab 10 Mg PO Q8HR Morphine ER (Morphine Sulfate) 30 Mg Tab 30 Mg PO BID Amitiza (Lubiprostone) 24 Mcg Cap 24 Mg PO BID Lasix (Furosemide) 20 Mg Tab 20 Mg PO DAILY B-12 (Cyanocobalamin) 1,000 Mcg Subl 1,000 Mcg SL DAILY D-2000 Maximum Strength (Cholecalciferol) 2,000 Unit Tab 5,000 Units PO DAILY Gabapentin 600 Mg Tab 600 Mg PO HS Midodrine 10 Mg Tab 10 Mg PO TID Hydromorphone (Hydromorphone HCl) 2 Mg Tab 2 Mg PO Q4H PRN Lactulose Liq (Lactulose (Encephalopathy) Liq) 19 Gm/15 Ml Soln 15 Ml PO DAILY Digoxin 0.125 Mg Tab 0.125 Mg PO DAILY Effexor XR 24 HR (Venlafaxine HCl) 150 Mg Cap 150 Mg PO BID Clonazepam 1 Mg Tab 1 Mg PO BID Copaxone Inj (Glatiramer Inj) 20 Mg/Ml Syr 20 Mg SQ DAILY Allergies: Coded Allergies: Fish Containing Products (Unverified Allergy, Severe, including all shell fish causes anaphylactic, 12/22/16) Sulfa (Sulfonamide Antibiotics) (Unverified Allergy, Severe, hives, ) acetaminophen (Unverified Allergy, Severe, HIVES, 12/22/16) adhesive (Unverified Allergy, Severe, MAKES MY SKIN BLEED, 12/22/16) carbamazepine (Unverified Allergy, Severe, cardiac arrest, 12/22/16) codeine (Unverified Allergy, Severe, SEIZURE, 12/22/16) iodine (Unverified Allergy, Severe, Anaphylaxis, 12/22/16) latex (Unverified Allergy, Severe, HIVES, 12/22/16) meperidine (Unverified Allergy, Severe, anaphylactic shock, 12/22/16) oxycodone (Unverified Allergy, Severe, HIVES, 12/22/16) phenobarbital (Unverified Allergy, Severe, hives, 12/22/16) phenytoin (Unverified Allergy, Severe, HIVES, 12/22/16) potassium iodide (Unverified Allergy, Severe, Anaphylaxis, 12/22/16) povidone-iodine (Unverified Allergy, Severe, Anaphylaxis, 12/22/16) propoxyphene (Unverified Allergy, Severe, SWELLING OF THE THROAT, 12/22/16 ) shellfish derived (Unverified Allergy, Severe, Sweeling to throat, ) sodium iodide (Unverified Allergy, Severe, Anaphylaxis, 12/22/16) sodium iodide (Unverified Allergy, Severe, Anaphylaxis, 12/22/16) Active Ordered Medications Current Medications Medications (Trade) Dose Ordered Sig/Elver Route Start Time Stop Time Status Last Admin (NS Flush) 2 ml UNSCH PRN IV FLUSH 12/22/16 04:30 (NS Flush) 2 ml BID IV FLUSH 12/22/16 09:00 (Narcan Inj) 0.4 mg UNSCH PRN IV PUSH 12/22/16 04:30 Family History History of coronary artery diseases in mother, father has history of [place]'s disease Social History No alcohol or tobacco use. Physical Exam Vital Signs Vital Signs Date Time Temp Pulse Resp B/P (MAP) Pulse Ox O2 Delivery O2 Flow Rate FiO2 12/22/16 05:27 12/22/16 05:24 78 18 97/61 (73) 98 Room Air 12/22/16 02:27 98 Room Air 12/22/16 02:25 80 14 108/70 (83) 98 Room Air 12/22/16 02:16 14 98 Room Air 12/22/16 02:13 82 14 98 Physical Exam GENERAL: This is a well-nourished, well-developed patient, in no apparent distress. SKIN: No rashes, ecchymoses or lesions. Cool and dry. HEAD: Atraumatic. Normocephalic. EYES: Pupils equal round and reactive. ENT: Nose without bleeding, purulent drainage or septal hematoma. Airway patent. NECK: Trachea midline. No JVD or lymphadenopathy. Supple, nontender, no meningeal signs. CARDIOVASCULAR: Regular rate and rhythm without murmurs, gallops, or rubs. RESPIRATORY: Clear to auscultation. Breath sounds equal bilaterally. No wheezes , rales, or rhonchi. GASTROINTESTINAL: Abdomen soft, non-tender, nondistended. No hepato-splenomegaly , or palpable masses. No guarding. MUSCULOSKELETAL: Extremities without clubbing, cyanosis, or edema. No joint tenderness, effusion, or edema noted. No calf tenderness. NEUROLOGICAL: Drowsy and alert. Motor and sensory grossly within normal limits. Normal speech. Laboratory Laboratory Tests Test 12/22/16 02:30 12/22/16 03:10 White Blood Count 6.4 Red Blood Count 4.82 Hemoglobin 13.5 Hematocrit 39.8 Mean Corpuscular Volume 82.6 Mean Corpuscular Hemoglobin 28.0 Mean Corpuscular Hemoglobin Concent 33.9 Red Cell Distribution Width 12.8 Platelet Count 152 Mean Platelet Volume 9.4 Neutrophils (%) (Auto) 40.8 Lymphocytes (%) (Auto) 40.5 Monocytes (%) (Auto) 10.8 Eosinophils (%) (Auto) 7.5 Basophils (%) (Auto) 0.4 Neutrophils # (Auto) 2.6 Lymphocytes # (Auto) 2.6 Monocytes # (Auto) 0.7 Eosinophils # (Auto) 0.5 Basophils # (Auto) 0.0 CBC Comment DIFF FINAL Differential Comment Erythrocyte Sedimentation Rate 18 Blood Urea Nitrogen 8 Creatinine 0.53 Random Glucose 93 Total Protein 6.8 Albumin 3.4 Calcium Level 7.9 Magnesium Level 2.2 Alkaline Phosphatase 86 Aspartate Amino Transf (AST/SGOT) 29 Alanine Aminotransferase (ALT/SGPT) 29 Total Bilirubin 0.2 Sodium Level 138 Potassium Level 3.8 Chloride Level 107 Carbon Dioxide Level 21.9 Anion Gap 9 Estimat Glomerular Filtration Rate 125 Lipase 188 Digoxin Level 0.2 Urine Color LIGHT-YELLOW Urine Turbidity CLEAR Urine pH 5.0 Urine Specific Linwood 1.009 Urine Protein NEG Urine Glucose (UA) NEG Urine Ketones NEG Urine Occult Blood NEG Urine Nitrite NEG Urine Bilirubin NEG Urine Urobilinogen LESS THAN 2.0 Urine Leukocyte Esterase LARGE Urine RBC 5 Urine WBC 24 Urine Squamous Epithelial Cells <1 Urine Transitional Epithelial Cells 1 Urine Bacteria RARE Urine Mucus FEW Microscopic Urinalysis Comment CULTURE INDICATED Date/Time Source Procedure Growth Status 12/22/16 03:10 Urine Clean Catch Urine Culture Pending Received Result Diagram: 12/22/160 12/22/16229 Imaging Last Impressions Chest X-Ray 12/22/16221 Signed Impressions: Service Date/Time: Thursday, December 22, 2016 02:40 - CONCLUSION: No acute disease. MD Pavithra Maher VTE Risk Assessment Caprini VTE Risk Assessment: Mod/High Risk (score >= 2) Caprini Risk Assessment Model Point Value = 1 Point Value = 2 Point Value = 3 Point Value = 5 Age 41-60 Minor surgery BMI > 25 kg/m2 Swollen legs Varicose veins or History of unexplained or recurrent spontaneous Oral contraceptives or hormone replacement Sepsis (< 1 month) Serious lung disease, including pneumonia (< 1 month) Abnormal pulmonary function Acute myocardial infarction Congestive heart failure (< 1 month) History of inflammatory bowel disease Medical patient at bed rest Age 61-74 Arthroscopic surgery Major open surgery (> 45 min) Laparoscopic surgery (> 45 min) Malignancy Confined to bed (> 72 hours) Immobilizing plaster cast Central venous access Age >= 75 History of VTE Family history of VTE Factor V Leiden Prothrombin [id number] Lupus anticoagulant Anticardiolipin antibodies Elevated serum homocysteine Heparin-induced thrombocytopenia Other congenital or acquired thrombophilia Stroke (< 1 month) Elective arthroplasty Hip, pelvis, or leg fracture Acute spinal cord injury (< 1 month) Prophylaxis Regimen Total Risk Factor Score Risk Level Prophylaxis Regimen 0-1 Low Early ambulation 2 Moderate Order ONE of the following: *Sequential Compression Device (SCD) *Heparin 5000 units SQ BID 3-4 Higher Order ONE of the following medications: *Heparin 5000 units SQ TID *Enoxaparin/Lovenox 40 mg SQ daily (WT < 150 kg, CrCl > 30 mL/min) *Enoxaparin/Lovenox 30 mg SQ daily (WT < 150 kg, CrCl > 10-29 mL/min) *Enoxaparin/Lovenox 30 mg SQ BID (WT < 150 kg, CrCl > 30 mL/min) AND/OR *Sequential Compression Device (SCD) 5 or more Highest Order ONE of the following medications: *Heparin 5000 units SQ TID (Preferred with Epidurals) *Enoxaparin/Lovenox 40 mg SQ daily (WT < 150 kg, CrCl > 30 mL/min) *Enoxaparin/Lovenox 30 mg SQ daily (WT < 150 kg, CrCl > 10-29 mL/min) *Enoxaparin/Lovenox 30 mg SQ BID (WT < 150 kg, CrCl > 30 mL/min) AND *Sequential Compression Device (SCD) Assessment and Plan Problem List: (1) Seizure disorder ICD Code: G40.909 - Epilepsy, unspecified, not intractable, without status epilepticus Status: Acute Assessment and Plan 46 y/o female with a history of seizures (not on medication), MS, CVA, and RA was brought to the ED after a witnessed seizure. Seizure disorder, pseudoseizure vs true seizure -Consult Neurology for recommendations -Seizure precautions -EEG ordered -Loaded with Kemary carmenra in ED, await neurology recommendations for medications UTI, UA shows large leukocyte esterase, high wbcs suspect ecoli, patient symptomatic -Rocephin IV daily -Urine culture pending Chronic medical conditions: Will order home medications when med rec is updated. DVT prophylaxis: SCDs Discussed Condition With Patient, RN and ED physician Meena Jackson Dec 22, 2016 05:58
--- NOTE | 2016-12-22 09:33 | MB ---
cc: FERNANDEZCONSUELO DATE OF CONSULTATION 12/22/2016 REASON FOR CONSULTATION This is 46-year-old left-handed woman with a history of possible MS, hypercholesterolemia, pacemaker for syncope, vasovagal, uterine cancer remotely. She said she had a seizure in [address] Bell. She was actually intubated at that time. EEG showed some questionable sharps. She was put on Keppra, but has not been taking it. She says first, the seizure was from MS, then from morphine. She sees Dr. Cortez neurology in [place]. She said she had a stroke nine years ago. She has had an abnormality on a caudate in the past. Nevertheless, she had an episode yesterday. She had a strange taste in her mouth lights in front of her eyes, odd smell, and then evidently had a grand mal seizure. She was given 2 mg of Ativan. She denies any history of seizures, although the chart says she had a seizure disorder as a child. She has had multiple admissions in the past some of which have been somewhat questionable for drug seeking behavior in the past. Overall, I would say she has been an unusual an odd case over the years. ALLERGIES ALLERGIC TO FISH-CONTAINING PRODUCTS, SULFA, TYLENOL, ADHESIVES, TEGRETOL, CODEINE, IODINE, LATEX, MEPERIDINE, OXYCODONE, PHENOBARB, DILANTIN, POTASSIUM, PROPOXYPHENE, SHELL FISH. MEDICATIONS She is on: 1. Vistaril 2. Promethazine 3. Protonix 4. Bethanechol 5. Morphine, although she said she had seizures in the past From morphine. First had said MS and then morphine. She takes morphine ER 30 b.i.d. 6. Amitiza 7. Lasix 8. B12 9. Gabapentin 600 at bedtime 10. Midodrine 10 t.i.d. 11. Hydromorphone 12. Digoxin 13. Effexor 14. Klonopin 1 milligram b.i.d. 15. Copaxone injection daily REVIEW OF SYSTEMS She denies any hypertension, diabetes, CABG, renal, hepatic, pulmonary disease, thyroid disease lupus, ulcer. SOCIAL HISTORY Nonsmoker, not a drinker. Lives with his son. FAMILY HISTORY Positive cancer, seizure, and stroke. PHYSICAL EXAM On exam, afebrile 73 20, 105/67. In the past, she had blood pressure down to 80/62 in May. NECK: There were no carotid bruits. HEART: Regular rhythm. I did not detect a murmur. NEUROLOGIC: She is awake and alert. Speech is fluent. She is not aphasic. Visual garcia are full. Extraocular movements intact without nystagmus. Pupils are equal. Face has a little bit of droopiness on the left side at rest, but she moves it symmetrically with normal sensation. Tongue was midline. There is no drift. She had normal strength in her upper and lower extremities bilaterally. Toes downgoing bilaterally. DTRs are hyperreflexic in the upper extremities bilaterally. Pinprick was intact throughout. She is not ataxic. LABORATORY DATA CBC is normal. Sed rate is normal. Hepatitis screen has been negative in the past as has been HIV. Basic metabolic profile is normal as are LFTs, albumin. She had a chest x-ray yesterday that was negative. A CT scan of her brain in May was normal. She had an MRA of her neck in November 2015 that was normal. The brain MRI at that time was not consistent with MS. There was no white matter change at all to suggest MS. She had a cystic region on the left caudate. She had an MRA takot[place] of Gonzalez at that time that was normal. I believe her MRI was done without contrast. She had an EEG which shows some questionable sharps in May of 2015 when she was seen by Dr. Bell for possible seizure. She had an MRI of her cervical spine which showed some bulging disk, but normal spinal cord without any MS in 2015. Thoracic MRI also showed some mild bulging disk but no evidence for MS. IMPRESSION By history some seizure disorder. She was put on Keppra, but has not been taking it. We will restart her Keppra at 500 b.i.d. She is having the EEG. An MRI of the brain will be done with contrast and if that is negative, she could go home on the Keppra 500 b.i.d. and follow up with her neurologist. We will just check a B12 level on her here. I noted her thyroid was normal a year ago and we can recheck one of those. If her pacer has not had any recent interrogation by cardiology, that can be considered by the med team before she is discharge. Her EKG here shows sinus rhythm. I note she was given some Keppra in the ER here on admission before the EEG was done. MD J LUIS Rivas/YARIEL /8:41 AM /9:08 AM
[2016-12-22] MEDS ORDERED: hydrOXYzine PAMOATE 25 MG CAP PO PRN (10:00)
[2016-12-22] MEDS ORDERED: ACETAMINOPHEN 325 MG TAB PO PRN (10:15)
[2016-12-22] MEDS: levETIRAcetam 500 MG TAB PO SCH ×2 (10:40→21:25)
[2016-12-22] MEDS: SODIUM CHLORIDE 0.9% FLUSH 10 ML FLUSH IV FLUSH SCH ×2 (10:41→21:00)
[2016-12-22] MEDS: IBUPROFEN 600 MG TAB PO PRN ×2 (12:22→21:25)
--- NOTE | 2016-12-22 12:23 | HHI.PR ---
Subjective Remarks Follow-up for seizure and chronic pain. The patient states that she was told she had a seizure yesterday, doesn't recall much about the events. She states she had a seizure once in the past that was attributed to morphine allergy and because her EEG was abnormal she was not continued on Keppra. No acute issues overnight. The patient's chief complaint is chronic pain. She states she has generalized pain from the neck down secondary to multiple sclerosis. She agrees that this pain is chronic and not new. She states she follows with her neurologist for this who recently ordered MRIs of her head and entire spine done 3 days ago. She states she takes ibuprofen and oral hydromorphone at home for pain. She states her pain is greater than 9/10 at this time. She specifically asking for IV Dilaudid because she states she always gets that whenever she is admitted and received it in the ED. We have not been able to confirm any current in for hydromorphone. She states that she she has also been having weakness and numbness of her legs which is why her neurologist did the MRIs. She states she fell in the bathroom here since admitted, denies any injury or pain from that. She states that she hasn't been sleeping well lately secondary to chronic anxiety. She states her neurologist manages her anxiety and depression. Patient has been quite demanding and intermittently refusing treatments throughout admission Objective Vitals Vital Signs Date Time Temp Pulse Resp B/P (MAP) Pulse Ox O2 Delivery O2 Flow Rate FiO2 12/22/16 07:58 97.8 73 20 105/68 (80) 93 12/22/16 06:22 97.5 73 18 113/71 (85) 95 12/22/16 05:27 12/22/16 05:24 78 18 97/61 (73) 98 Room Air 12/22/16 02:27 98 Room Air 12/22/16 02:25 80 14 108/70 (83) 98 Room Air 12/22/16 02:16 14 98 Room Air 12/22/16 02:13 82 14 98 I/O 12/21/16 12/21/16 12/21/16 12/22/16 12/22/16 12/22/16 07:00 15:00 23:00 07:00 15:00 23:00 Intake Total 1400 ml Balance 1400 ml Intake Oral 200 ml IV Total 1200 ml Result Diagram: 12/22/1622912/22/16229 Imaging Last Impressions Chest X-Ray 12/22/16221 Signed Impressions: Service Date/Time: Thursday, December 22, 2016 02:40 - CONCLUSION: No acute disease. Manjeet Delaney MD Objective Remarks GENERAL: Well-developed well-nourished. In no acute distress. SKIN: Warm and dry. No lesions noted. HEENT: Normocephalic. Pupils equal and round. Mucous membranes pink and moist. CARDIOVASCULAR: Regular rate and rhythm. No murmur appreciated. RESPIRATORY: No accessory muscle use. Clear to auscultation. Breath sounds equal bilaterally. GASTROINTESTINAL: Abdomen soft, non-tender, nondistended. Bowel sounds x4. MUSCULOSKELETAL: No obvious deformities. No clubbing or cyanosis. No edema. NEUROLOGICAL: Awake and alert. Moves upper and lower extremities spontaneously. Normal speech. PSYCHIATRIC: Labile mood and affect; intermittently drowsy and then hyperalert and vigilant; insight and judgment normal. A/P Problem List: (1) Seizure disorder ICD Code: G40.909 - Epilepsy, unspecified, not intractable, without status epilepticus Status: Acute Assessment and Plan 46-year-old female with past medical history of possible seizures, MS, CVA, RA who presented after seizure Seizure disorder: Previously on Keppra while admitted, but not currently on this as outpatient. -Neurology consulted, recommended resuming Keppra and checking brain MRI with and without contrast, patient cleared for discharge from neurology perspective depending on MRI brain results -Patient currently refusing brain MRI because she states she had one done 3 days ago, will have to obtain results -Continue Keppra -Seizure precautions Lower extremity weakness and numbness: Reported history of MS -Neurology consulted as above -Continue Copaxone -PT eval Chronic pain vs suspicion of drug seeking behavior: Reviewed [facility], the patient has not received any prescriptions for hydromorphone since May or morphine since June; no active controlled prescriptions except for Klonopin. Nursing has been unable to confirm any more recent prescriptions since these months as well. Patient repeatedly asking for IV Dilaudid. If pain is indeed legitimate, it is chronic and being managed by the patient's neurologist as outpatient. -I explained to the patient that I would continue any chronic medications she is getting at home if we can confirm this and there will be no IV medications for chronic pain -Ibuprofen as needed for now -Continue on gabapentin -Continue follow-up with neurology and possible pain management as outpatient Anxiety/depression/insomnia: Chronic. -Continue home Klonopin, Effexor, hydroxyzine -Encouraged patient follow-up with psychiatry as outpatient UTI reportedly symptomatic: UA with evidence of UTI. Afebrile, leukocytosis. -Continue empiric IV Rocephin for now and follow up urine culture. Transition to oral antibiotics at discharge. Other chronic medical conditions include GERD, constipation, arrhythmia s/p pacemaker, overactive bladder, hypotension: Stable at this time and will continue home medications as indicated DVT prophylaxis: SCDs Discharge Planning Per neurology recommendations, patient can be discharged on Keppra if brain MRI is normal. Patient currently refusing brain MRI here saying she just had one done 3 days ago as outpatient, will review once obtained. Addendum 1700: outpatient brain, cervical, and thoracic MRIs with and without contrast MRI from 12/16 obtained and reviewed with attending Dr. Johnson. Brain MRI showed small focus of signal abnormality and left caudate unchanged from previous imaging, likely old lacunar infarct or residual gliosis and less likely demyelinating plaque. Cervical and thoracic MRIs were unremarkable. Also reviewed UDS which was positive only for cannabis and no benzos, question of inappropriate use of benzos as 30 day prescription of Klonopin was prescribed 2 weeks ago. Discussed MRI findings with neurology, Dr. Toure, who has cleared patient for discharge from neurology perspective on Keppra today. The patient has refused physical therapy evaluation for weakness, can continue follow-up with her neurologist and PCP as outpatient. Continue course of Keflex for possible UTI and follow-up with PCP for abnormal urine culture results. Discharge home today. Seizure precautions. Amanuel Lopez Dec 22, 2016 12:23
[2016-12-22] MEDS: DIGOXIN 0.125 MG TAB PO SCH (12:50)
[2016-12-22] MEDS: MIDODRINE 5 MG TAB PO SCH ×2 (12:50→18:00)
[2016-12-22] MEDS: clonazePAM 1 MG TAB PO SCH ×2 (13:06→21:25)
[2016-12-22] MEDS: VENLAFAXINE HCL XR 75 MG CAP PO SCH ×2 (13:51→21:26)
[2016-12-22] MEDS: BETHANECHOL CHL 10 MG TAB PO SCH ×2 (13:52→21:26)
[2016-12-22] MEDS: CHOLECALCIFEROL (VIT D3) 5000 UNIT CAP PO SCH (13:54)
--- NOTE | 2016-12-22 15:05 | EKG ---
Date Performed: 12/22/2016 Time Performed: 02:16:45 PTAGE: 46 years EKG: Sinus rhythm POSSIBLE RIGHT VENTRICULAR CONDUCTION DELAY LEFT ANTERIOR FASCICULAR BLOCK ABNORMAL ECG PREVIOUS TRACING : 06/06/2016 17.20 Compared to prior tracing no significant change DOCTOR: Boyd Jin Interpretating Date/Time 12/22/2016 15:03:47
[2016-12-22] MEDS ORDERED: LEVE500 PO (17:09)
[2016-12-22] MEDS ORDERED: CEPH-460 PO (17:09)
--- NOTE | 2016-12-22 20:33 | MG ---
cc: ANISH FELDER M.D. Sex: F DATE OF STUDY: 12/22/2016 REQUESTING PHYSICIAN: Dr. Santoro. INTRODUCTION: An EEG was obtained on this 46-year-old patient being evaluated for possible seizure discharge. The EEG is showing a mixture of rhythms. There are alpha and beta rhythms. There is some intermixed theta activity. The patient seems awake and asleep. Photic stimulation disclosed no significant change. Even when the patient is awake in close relationship to the photic stimulation, there continues to be a lot of intermixed theta rhythms bilaterally. INTERPRETATION Abnormal EEG because of intermixed slowing bilaterally, possibly left more than right hemisphere where there is more theta activity. There are some phase reversals on the left but no definite epileptiform features. No ictal pattern. The findings suggest a mild diffuse disturbance of cerebral function with possible structural abnormality, especially on the left. Anish Felder MD [facility]/JOSE /6:25 PM /8:22 PM
[2016-12-22] MEDS ORDERED: GABAPENTIN 300 MG CAP PO SCH (21:00)
[2016-12-22] MEDS ORDERED: VENLAFAXINE HCL XR 75 MG CAP PO SCH (21:00)
[2016-12-22] MEDS ORDERED: LUBIPROSTONE 24 MG PO SCH (21:00)
[2016-12-23 02:25] LABS: FREE T4 0.91 NG/DL (0.76-1.46)
[2016-12-23 03:11] VITALS: BP 95/52; PULSE 70; RESP 16; TEMP 97.8; O2SAT 97
[2016-12-23] MEDS: IBUPROFEN 600 MG TAB PO PRN (03:39)
[2016-12-23] MEDS ORDERED: cefTRIAXone INJ 1,000 MG in SODIUM CHLORIDE 0.9% INJ 100 ML IV SCH (05:00)
--- NOTE | 2016-12-23 06:46 | HHI.PR ---
Objective Vital Signs Date Time Temp Pulse Resp B/P (MAP) Pulse Ox O2 Delivery O2 Flow Rate FiO2 12/23/16 03:11 97.8 70 16 95/52 (66) 97 12/22/16 23:27 97.8 70 16 100/59 (73) 98 12/22/16 22:03 18 12/22/16 20:41 75 12/22/16 19:57 98.2 70 16 99/58 (72) 94 12/22/16 16:19 99.2 75 18 99/57 (71) 96 12/22/16 15:10 69 12/22/16 13:04 98/61 (73) 12/22/16 12:13 98.0 76 15 80/51 (61) 94 12/22/16 08:20 74 12/22/16 07:58 97.8 73 20 105/68 (80) 93 I/O 12/22/16 12/22/16 12/22/16 12/23/16 12/23/16 12/23/16 07:00 15:00 23:00 07:00 15:00 23:00 Intake Total 1400 ml 700 ml Output Total 650 ml Balance 1400 ml 50 ml Intake Oral 200 ml 700 ml IV Total 1200 ml Output Urine Total 650 ml # Voids 5 Result Diagram: 12/22/1622912/22/16229 Other Results refuses mri eeg some l> r slow b12 adn thyroid ok Objective Remarks awake alert now says cannot move legs from sudden ms attack and back pain Assessment and Plan Assessment and Plan imp on keppra for sz this is a recurrent theme with her and says she is paralyzed in legs but i have seen her get up and walk she malingers for days looking for pain meds her legs were fine yest on my exam and now will not move then nl tone no clonus toes down on exam do not extension associate her any narcotics have psych see her she refuses mri i will dw her neurologist Mckay Toure MD Dec 23, 2016 06:46
[2016-12-23] MEDS: BETHANECHOL CHL 10 MG TAB PO SCH (07:12)
[2016-12-23 07:34] VITALS: BP 84/53; PULSE 75; RESP 18; TEMP 96.4; O2SAT 94
[2016-12-23] MEDS ORDERED: GLATIRAMER 20 MG SQ SCH (09:00)
[2016-12-23] MEDS ORDERED: LACTULOSE SYRUP 20 GM/30 ML CUP PO SCH (09:00)
[2016-12-23] MEDS ORDERED: MIDODRINE 5 MG TAB PO SCH (09:00)
[2016-12-23] MEDS: SODIUM CHLORIDE 0.9% FLUSH 10 ML FLUSH IV FLUSH SCH (09:00)
[2016-12-23] MEDS ORDERED: PANTOPRAZOLE SOD 40 MG DELAYED RELEASE TAB PO SCH (09:00)
[2016-12-23] MEDS ORDERED: FUROSEMIDE 20 MG TAB PO SCH (09:00)
[2016-12-23] MEDS ORDERED: CYANOCOBALAMIN 1,000 MCG TAB PO SCH (09:00)
[2016-12-23] MEDS: VENLAFAXINE HCL XR 75 MG CAP PO SCH (09:29)
[2016-12-23] MEDS: CHOLECALCIFEROL (VIT D3) 5000 UNIT CAP PO SCH (09:30)
[2016-12-23] MEDS: clonazePAM 1 MG TAB PO SCH (09:30)
[2016-12-23] MEDS: levETIRAcetam 500 MG TAB PO SCH (09:30)
[2016-12-23] MEDS: DIGOXIN 0.125 MG TAB PO SCH (09:30)
[2016-12-23 09:50] LABS: AUTOMATED NEUTROPHIL # 4.6 TH/MM3 (1.8-7.7); BASOPHIL % 0.2 % (0.0-2.0); EOSINOPHIL % 0.3 % (0.0-4.0); HEMATOCRIT 35.5 % (35.0-46.0); HEMO FLAGS DIFF FINAL; LYMPH % 25.8 % (9.0-44.0); LYMPHOCYTE # 1.9 TH/MM3 (1.0-4.8); MEAN CELL VOLUME 84.8 FL (80.0-100.0); MEAN CORPUSCULAR HEMOGLOBIN 28.2 PG (27.0-34.0); MEAN CORPUSCULAR HGB CONC 33.2 % (32.0-36.0); MONO % 11.1 % (0.0-8.0); NEUT % 62.6 % (16.0-70.0); PLATELET COUNT 124 TH/MM3 (150-450); RED BLOOD COUNT 4.19 MIL/MM3 (4.00-5.30); RED CELL DISTRIBUTION WIDTH 12.9 % (11.6-17.2); WHITE BLOOD COUNT 7.3 TH/MM3 (4.0-11.0)
[2016-12-23] MEDS ORDERED: PNEUMOCOCCAL POLYVALENT INJ 25 MCG/0.5 ML SYR IM ONE (10:00)
[2016-12-23] MEDS ORDERED: INFLUENZA VIRUS VACCINE (QUADRIVALENT) 0.5 ML SYR IM ONE (10:00)
[2016-12-23 10:18] LABS: BICARBONATE 26.7 MEQ/L (21.0-32.0)
--- NOTE | 2016-12-23 10:38 | HHI.PR ---
Subjective Remarks Follow-up for probable factitious disorder. The patient was not discharged yesterday because she said she had no way get to her house. Currently her son and her boyfriend are at bedside and have not comments/complaints .Evaluated by and discussed with neurology, suspect malingering, no further workup or treatment needed at this time. Discussed with psychiatry, strongly suspects factitious disorder, recommended no further treatment for non-confirmed medical diagnoses. Discussed with physical therapist, states patient is able to weight- bear, but would not participate with strength assessment; recommends outpatient PT. Today, the patient states that she was given tape and is having anaphylactic reaction to this. She states she is having a generalized rash, but there is none present on exam. She feels like she can't believe that her throat is closing up, although this is not present. She is demanding to be given Benadryl. Objective Vitals Vital Signs Date Time Temp Pulse Resp B/P (MAP) Pulse Ox O2 Delivery O2 Flow Rate FiO2 12/23/16 07:34 96.4 75 18 84/53 (63) 94 12/23/16 07:06 18 12/23/16 03:11 97.8 70 16 95/52 (66) 97 12/22/16 23:27 97.8 70 16 100/59 (73) 98 12/22/16 20:41 75 12/22/16 19:57 98.2 70 16 99/58 (72) 94 12/22/16 16:19 99.2 75 18 99/57 (71) 96 12/22/16 15:10 69 12/22/16 13:04 98/61 (73) 12/22/16 12:13 98.0 76 15 80/51 (61) 94 I/O 12/22/16 12/22/16 12/22/16 12/23/16 12/23/16 12/23/16 06:59 14:59 22:59 06:59 14:59 22:59 Intake Total 1400 ml 700 ml Output Total 650 ml Balance 1400 ml 50 ml Intake Oral 200 ml 700 ml IV Total 1200 ml Output Urine Total 650 ml # Voids 5 Result Diagram: 12/23/1692512/23/16925 Imaging Last Impressions Chest X-Ray 12/22/16221 Signed Impressions: Service Date/Time: Thursday, December 22, 2016 02:40 - CONCLUSION: No acute disease. Manjeet Delaney MD Objective Remarks GENERAL: Well-developed well-nourished. In no acute distress. SKIN: Warm and dry. No rashes noted. HEENT: Normocephalic. Pupils equal and round. No oropharyngeal swelling and airway patent. CARDIOVASCULAR: Regular rate and rhythm. No murmur appreciated. RESPIRATORY: No accessory muscle use. Clear to auscultation. Breath sounds equal bilaterally. No wheezing. GASTROINTESTINAL: Abdomen soft, non-tender, nondistended. Bowel sounds x4. MUSCULOSKELETAL: No obvious deformities. No clubbing or cyanosis. No edema. NEUROLOGICAL: Awake and alert. Refuses to move lower extremities. Normal speech. PSYCHIATRIC: Anxious/agitated mood and affect; manipulative behavior A/P Problem List: (1) Seizure disorder ICD Code: G40.909 - Epilepsy, unspecified, not intractable, without status epilepticus Status: Acute Assessment and Plan 46-year-old female with past medical history of possible seizures, MS, CVA, RA who presented after reported seizure Factitious disorder: Discussed with psychiatry, strong suspicion for factitious disorder. Patient has been manipulative and demanding throughout admission. -Psychiatry recommends against meeting the patient's demands and treating for medical conditions that do not exist. Seizure disorder: Reportedly previously on Keppra, but not currently on this as outpatient. -Neurology consulted, recommended resuming Keppra and checking brain MRI with and without contrast. The patient refused brain MRI here, but obtained results of recent brain MRI 12/16 with and without contrast, showed small focus of signal abnormality and left caudate unchanged from previous imaging, likely old lacunar infarct or residual gliosis and less likely demyelinating plaque; findings discussed with neurology, essentially unremarkable. -EEG with no epileptic focus -Continue Keppra -Seizure precautions Lower extremity weakness and numbness: The symptoms occurred after admission after patient's initial demands were not met. Reported history of MS. obtained outpatient cervical and thoracic spine MRIs with and without contrast from 12/16 which were unremarkable and had no lesions suspicious for demyelination. -Neurology consulted, suspect malingering, no treatment for MS at this time and recommend psychiatry evaluation as above -Continue Copaxone -PT consulted, patient refuses strength evaluation for myself and physical therapist, but therapist states the patient is able to weight-bear. Reported allergic reaction to tape: No signs of any allergic reaction or anaphylaxis clinically. Appears to be secondary to factitious disorder as above. -There is no indication for any treatment at this time Chronic pain vs suspicion of drug seeking behavior: Reviewed [facility], the patient has not received any prescriptions for hydromorphone since May or morphine since June; no active controlled prescriptions except for Klonopin. Nursing has been unable to confirm any more recent prescriptions since these months as well. Patient repeatedly asking for IV Dilaudid. If pain is indeed legitimate, it is chronic and being managed by the patient's neurologist as outpatient. -Ibuprofen as needed for now -Continue on gabapentin -Continue follow-up with neurology and possible pain management as outpatient Anxiety/depression/insomnia: Chronic. -Continue home Klonopin, Effexor, hydroxyzine -Encouraged patient follow-up with psychiatry as outpatient UTI reportedly symptomatic: UA with evidence of UTI. Afebrile, leukocytosis. Urine culture pending. -Change empiric IV Rocephin to oral Keflex at discharge and follow up with PCP for urine culture results. Other chronic medical conditions include GERD, constipation, arrhythmia s/p pacemaker, overactive bladder, hypotension: Stable at this time and will continue home medications as indicated DVT prophylaxis: SCDs Discharge Planning Plan of care discussed with charge nurse, psychiatry, physical therapist, Dr. Johnson. Discharge home today. Amanuel Lopez Dec 23, 2016 10:38
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
== END 2016-12-23 13:37 | disposition home or self-care (01) ==
LOC: NEPE 02:09 → NEDA 04:32 → UNDOADMIN 04:32 → INTOOBSV 04:33 → NEDA 04:33 → NEPGCP 05:28
PROVIDERS: ADMIT Hospitalist; ATTEND Hospitalist
DX: G40.409 Other generalized epilepsy and epileptic syndromes, not intractable, without status epilepticus (principal); G35 Multiple sclerosis; G82.20 Paraplegia, unspecified; I48.91 Unspecified atrial fibrillation; M54.2 Cervicalgia; M54.5 Low back pain; G89.29 Other chronic pain; T78.2XXA Anaphylactic shock, unspecified, initial encounter; F41.9 Anxiety disorder, unspecified; F32.9 Major depressive disorder, single episode, unspecified; K59.00 Constipation, unspecified; N30.00 Acute cystitis without hematuria; N32.81 Overactive bladder; K21.9 Gastro-esophageal reflux disease without esophagitis; W19.XXXA Unspecified fall, initial encounter; M06.9 Rheumatoid arthritis, unspecified; Y92.002 Bathroom of unspecified non-institutional (private) residence as the place of occurrence of the external cause; Z87.11 Personal history of peptic ulcer disease; Z79.899 Other long term (current) drug therapy; Z95.0 Presence of cardiac pacemaker; Z86.73 Personal history of transient ischemic attack (TIA), and cerebral infarction without residual deficits
CPT/HCPCS: 71010; 80048; 80053; 80162; 80307; 81001; 82607; 83690; 83735; 84425; 84439; 84443; 85025; 85652; 87086; 93005; 95819; 96365; 96366; 96375; 96376; 97162; 99285; G0378; G8987; G8988; J0696; J1170; J1953; J2405; J2550; J2930; J7030

== ENCOUNTER 2017-01-23 23:39 | Observation (INO) | payer BC ==
[~2017-01-23] VITALS: Ht 170.2 cm; Wt 71.4 kg
[~2017-01-23 23:39] MED LIST changes: -AMIT24CA5 PO; +AMIT24CA9 PO; +CEPH-460 PO; -HYDR2TAB PO; +LEVE500 PO; -MORP1TAB25 PO
[2017-01-23 23:44] VITALS: BP 102/71; PULSE 73; RESP 20; TEMP 98.1; O2SAT 98
--- NOTE | 2017-01-24 00:56 | PD ---
HPI Chief Complaint: Pain: Acute or Chronic Time Seen by Provider: 00:56 Travel History International Travel<30 days: No Contact w/Intl Traveler<30days: No Traveled to known affect area: No History of Present Illness HPI 46-year-old female presents to the emergency department by EMS transport for complaint of exacerbation of multiple sclerosis with bilateral lower extremity weakness. Patient states symptoms have progressively worsened over the past several days if not weeks. Patient states symptoms were eating specifically worsened since Tuesday and at 7:30 this evening patient is having difficulty with walking and driving. Patient states that she was having difficulty getting up and down the stairs and had to crawl to the couch. Symptoms of the present for the past 5 hours or longer. Patient denies sudden onset headache visual disturbance or speech disturbance. Patient states she has felt a little confused and she awakened feeling this way. Patient states that she had to scoot down the stairs and crawl to the couch and was able to get up on the couch but was unable to walk so called her family her and son to assist her plan was to bring her to the hospital bicarbonate because of her lower extremity weakness was brought to the emergency room by ambulance. Patient states she also has low back pain and denies any recent injury or fall. Patient states the pain is very severe and she has chronic back pain and asked repeatedly for pain medications. Patient denies any bladder or bowel dysfunction or saddle anesthesia. Patient was recently hospitalized December 22- of this ear complaining of multiple medical problems during which time it was identified that she was seen by psychiatry as well as neurology at that time it was thought that she was having some kind of variant of seizure disorder. 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 Patient reportedly was unable to ambulate during hospitalization was witnessed numerous times ambulating without difficulty. Patient was previously treated by Dr. Mendoza but is no longer under his care. Patient rates her pain 9/10 in intensity. When family members try to assist with providing her history she frequently becomes belligerent and verbally abusive to the family. PFSH Past Medical History Hx Anticoagulant Therapy: No Anemia: Yes Arthritis: No Asthma: No Atrial Fibrillation: Yes Autoimmune Disease: Yes (MS 2006/ has undergone plasma exchange therapy) Blood Disorders: No Anxiety: Yes Depression: No Heart Rhythm Problems: No Cancer: Yes (ovarian) Cardiac Catheterization: No Cardiovascular Problems: No High Cholesterol: No Chemotherapy: No Chest Pain: No Congestive Heart Failure: No COPD: No Cerebrovascular Accident: Yes Diabetes: No Diminished Hearing: Yes (HEARING AIDS) Endocrine: No GERD: Yes Glaucoma: No Genitourinary: Yes (hard to void at times, only a tiny bit at a time) Headaches: Yes Hepatitis: No Hiatal Hernia: No Heparin Induced Thrombocytopen: No Hypertension: No Immune Disorder: No Implanted Vascular Access Dvce: Yes (PACEMAKER,MEDTRONIC ) Kidney Stones: No Medical other: Yes (reflux,stomach ulcers) Musculoskeletal: Yes (very weak from MS) Neurologic: Yes (MS and Seizures) Psychiatric: No Reproductive: No Respiratory: No Immunizations Current: Yes Migraines: Yes Myocardial Infarction: No Radiation Therapy: No Renal Failure: No Seizures: Yes ( A CHILD, RESOLVED) Sickle Cell Disease: No Sleep Apnea: No Thyroid Disease: No Ulcer: No Tetanus Vaccination: > 5 Years Influenza Vaccination: No ?: Not Menopausal: Yes : 3 Para: 3 Miscarriage: 0 : 0 Ovarian Cysts: Yes Tubal Ligation: Yes Past Surgical History Abdominal Surgery: Yes Appendectomy: Yes Arteriovenous Shunt: No Cardiac Surgery: Yes (PACEMAKER 2011 multiple sclerosis complications, vagal nerve dysfn.) Section: Yes Cholecystectomy: Yes Coronary Artery Bypass Graft: No Ear Surgery: No Endocrine Surgery: No Eye Surgery: No Genitourinary Surgery: No Gynecologic Surgery: Yes (ENDOMETRIOSIS) Hysterectomy: Yes Insulin Pump: No Joint Replacement: No Neurologic Surgery: No Oral Surgery: No Pacemaker: Yes (UNKNOWN ) Thoracic Surgery: No Other Surgery: Yes (, REMOVAL OF GALLBLADDER) Family History Family Myocardial Infarction: Yes (mother had cabgX4, father had kisha disease per pt) Social History Alcohol Use: Yes (occ) Tobacco Use: No Substance Use: No Allergies-Medications (Allergen,Severity, Reaction): Coded Allergies: Fish Containing Products (Unverified Allergy, Severe, including all shell fish causes anaphylactic, 12/22/16) Sulfa (Sulfonamide Antibiotics) (Unverified Allergy, Severe, hives, ) acetaminophen (Unverified Allergy, Severe, HIVES, 12/22/16) adhesive (Unverified Allergy, Severe, MAKES MY SKIN BLEED, 12/22/16) carbamazepine (Unverified Allergy, Severe, cardiac arrest, 12/22/16) codeine (Unverified Allergy, Severe, SEIZURE, 12/22/16) iodine (Unverified Allergy, Severe, Anaphylaxis, 12/22/16) latex (Unverified Allergy, Severe, HIVES, 12/22/16) meperidine (Unverified Allergy, Severe, anaphylactic shock, 12/22/16) oxycodone (Unverified Allergy, Severe, HIVES, 12/22/16) phenobarbital (Unverified Allergy, Severe, hives, 12/22/16) phenytoin (Unverified Allergy, Severe, HIVES, 12/22/16) potassium iodide (Unverified Allergy, Severe, Anaphylaxis, 12/22/16) povidone-iodine (Unverified Allergy, Severe, Anaphylaxis, 12/22/16) propoxyphene (Unverified Allergy, Severe, SWELLING OF THE THROAT, 12/22/16 ) shellfish derived (Unverified Allergy, Severe, Sweeling to throat, ) sodium iodide (Unverified Allergy, Severe, Anaphylaxis, 12/22/16) sodium iodide (Unverified Allergy, Severe, Anaphylaxis, 12/22/16) Reported Meds & Prescriptions Reported Meds & Active Scripts Active Reported Promethazine (Promethazine HCl) 12.5 Mg Tab 25 Mg PO Q4H PRN Pantoprazole (Pantoprazole Sodium) 20 Mg Tab 40 Mg PO DAILY Bethanechol 10 Mg Tab 10 Mg PO Q8HR Amitiza (Lubiprostone) 24 Mcg Cap 24 Mg PO BID Lasix (Furosemide) 20 Mg Tab 20 Mg PO DAILY B-12 (Cyanocobalamin) 1,000 Mcg Subl 1,000 Mcg SL DAILY D-2000 Maximum Strength (Cholecalciferol) 2,000 Unit Tab 5,000 Units PO DAILY Gabapentin 600 Mg Tab 600 Mg PO HS Midodrine 10 Mg Tab 10 Mg PO TID Lactulose Liq (Lactulose (Encephalopathy) Liq) 19 Gm/15 Ml Soln 15 Ml PO DAILY Digoxin 0.125 Mg Tab 0.125 Mg PO DAILY Clonazepam 1 Mg Tab 1 Mg PO BID Copaxone Inj (Glatiramer Inj) 20 Mg/Ml Syr 20 Mg SQ DAILY Review of Systems Except as stated in HPI: all other systems reviewed are Neg General / Constitutional: No: Fever, Chills Eyes: No: Diploplia, Blurred Vision, Photophobia, Visual changes HENT: Positive: Lightheadedness, No: Headaches Cardiovascular: No: Chest Pain or Discomfort Respiratory: No: Cough, Shortness of Breath Gastrointestinal: No: Nausea, Vomiting Genitourinary: No: Dysuria, Decreased Urinary Output, Incontinence Musculoskeletal: Positive: Myalgias, Arthralgias, Pain (low back apin) Skin: No Rash Neurologic: Positive: Weakness, Coordination Problem, Change in Mentation, Paresthesia, No: Dizziness, Syncope, Focal Abnormalities, Headache, Slurred Speech, Incontinence Psychiatric: No: Anxiety Hematologic/Lymphatic: No: Easy Bruising Physical Exam Narrative GENERAL: Well-developed well-nourished female in no acute distress no respiratory distress; GCS 15 SKIN: Warm and dry. HEAD: Atraumatic. Normocephalic. EYES: Pupils equal and round. No scleral icterus. No injection or drainage. ENT: No nasal bleeding or discharge. Mucous membranes pink and moist. NECK: Trachea midline. No JVD. CARDIOVASCULAR: Regular rate and rhythm. RESPIRATORY: No accessory muscle use. Clear to auscultation. Breath sounds equal bilaterally. GASTROINTESTINAL: Abdomen soft, non-tender, nondistended. Hepatic and splenic margins not palpable. MUSCULOSKELETAL: Extremities without clubbing, cyanosis, or edema. No obvious deformities. NEUROLOGICAL: Awake and alert. No obvious cranial nerve deficits. Motor grossly within normal limits. Five out of 5 muscle strength in the arms and 2-3 over 5 bilateral lower extremity/legs. Sensation intact. DTRs 2+ and equal without clonus. Toes downgoing. No pronator drift. Unable able to perform heel to romo for limited taxi. Normal speech. Data Data Last Documented VS Vital Signs Date Time Temp Pulse Resp B/P (MAP) Pulse Ox O2 Delivery O2 Flow Rate FiO2 01/23/17 23:44 98.1 73 20 102/71 (81) [address] Brain W/O Iv Contrast(Rout) (01/24/17 ) Electrocardiogram (01/24/17 00:56) Prothrombin Time / Inr (Pt) (01/24/17 00:56) Act Partial Throm Time (Ptt) (01/24/17 00:56) Complete Blood Count With Diff (01/24/17 00:56) Comprehensive Metabolic Panel (01/24/17 00:56) Creatine Kinase (Cpk) (01/24/17 00:56) Troponin I (01/24/17 00:56) Urinalysis - C+S If Indicated (01/24/17 00:56) Ecg Monitoring (01/24/17 00:56) Iv Access Insert/Monitor (01/24/17 00:56) Oximetry (01/24/17 00:56) Sodium Chloride 0.9% Flush (Ns Flush) (01/24/17 01:00) Ct Lumb Spine W/O Contrast (01/24/17 ) Ketorolac Inj (Toradol Inj) (01/24/17 01:30) Diphenhydramine Inj (Benadryl Inj) (01/24/17 02:15) Urine Culture (01/24/17 04:19) Dexamethasone Inj (Decadron Inj) (01/24/17 05:15) Admit Order (Ed Use Only) (01/24/17 ) Vital Signs (Adult) Q4H (01/24/17 05:25) Diet Heart Healthy (01/24/17 Breakfast) Activity Bed Rest (01/24/17 05:25) Notify Dr: Other (01/24/17 05:25) Consult Neurology (01/24/17 ) Labs Laboratory Tests Test 01/24/17 00:30 01/24/17 04:19 White Blood Count 4.7 TH/MM3 Red Blood Count 4.44 MIL/MM3 Hemoglobin 12.3 GM/DL Hematocrit 36.9 % Mean Corpuscular Volume 83.2 FL Mean Corpuscular Hemoglobin 27.8 PG Mean Corpuscular Hemoglobin Concent 33.4 % Red Cell Distribution Width 13.3 % Platelet Count 153 TH/MM3 Mean Platelet Volume 9.2 FL Neutrophils (%) (Auto) 39.5 % Lymphocytes (%) (Auto) 41.1 % Monocytes (%) (Auto) 13.1 % Eosinophils (%) (Auto) 5.6 % Basophils (%) (Auto) 0.7 % Neutrophils # (Auto) 1.8 TH/MM3 Lymphocytes # (Auto) 1.9 TH/MM3 Monocytes # (Auto) 0.6 TH/MM3 Eosinophils # (Auto) 0.3 TH/MM3 Basophils # (Auto) 0.0 TH/MM3 CBC Comment DIFF FINAL Differential Comment Prothrombin Time 10.2 SEC Prothromb Time International Ratio 0.9 RATIO Activated Partial Thromboplast Time 24.5 SEC Blood Urea Nitrogen 16 MG/DL Creatinine 0.52 MG/DL Random Glucose 92 MG/DL Total Protein 6.8 GM/DL Albumin 3.6 GM/DL Calcium Level 8.5 MG/DL Alkaline Phosphatase 94 U/L Aspartate Amino Transf (AST/SGOT) 25 U/L Alanine Aminotransferase (ALT/SGPT) 37 U/L Total Bilirubin 0.2 MG/DL Sodium Level 141 MEQ/L Potassium Level 3.8 MEQ/L Chloride Level 107 MEQ/L Carbon Dioxide Level 27.4 MEQ/L Anion Gap 7 MEQ/L Estimat Glomerular Filtration Rate 128 ML/MIN Total Creatine Kinase 41 U/L Troponin I LESS THAN 0.02 NG/ML Urine Color LIGHT-YELLOW Urine Turbidity CLEAR Urine pH 5.5 Urine Specific [place] 1.008 Urine Protein NEG mg/dL Urine Glucose (UA) NEG mg/dL Urine Ketones NEG mg/dL Urine Occult Blood NEG Urine Nitrite NEG Urine Bilirubin NEG Urine Urobilinogen LESS THAN 2.0 MG/DL Urine Leukocyte Esterase LARGE Urine RBC 1 /hpf Urine WBC 18 /hpf Urine Squamous Epithelial Cells <1 /hpf Microscopic Urinalysis Comment CATH-CULTURE IND MDM Medical Decision Making Medical Screen Exam Complete: Yes Emergency Medical Condition: Yes Medical Record Reviewed: Yes Interpretation(s) CBC & BMP Diagram 01/24/17 00:30 Total Protein 6.8, Albumin 3.6, Calcium Level 8.5, Alkaline Phosphatase 94, Aspartate Amino Transf (AST/SGOT) 25, Alanine Aminotransferase (ALT/SGPT) 37, Total Bilirubin 0.2 Vital Signs Date Time Temp Pulse Resp B/P (MAP) Pulse Ox O2 Delivery O2 Flow Rate FiO2 01/23/17 23:44 98.1 73 20 102/71 (81 98 Last Impressions Lumbar Spine CT 01/24/17 0000 Signed Impressions: Service Date/Time: Tuesday, January 24, 2017 03:17 - CONCLUSION: Normal examination. Channing Kirk MD Head CT 01/24/17 0000 Signed Impressions: Service Date/Time: Tuesday, January 24, 2017 03:14 - CONCLUSION: Normal examination. Channing Kirk MD Differential Diagnosis Lower extremity weakness, HNP, cauda equina syndrome, exacerbation of multiple sclerosis, malingering Narrative Course At 3 AM patient is up out of bed to bedside commode able to weight-bear to transition from stretcher to bedside commode requesting more pain medication @ 3:[address] Medical record reviewed patient admitted for seizure 12/22/16 history of MS, CVA , RA, neurologist is , multiple sclerosis diagnosed 2008 with CVA MRI 7 lesions frontal area to lesions spinal cord T3-T4 and sacrum; chronic constipation and urinary incontinence; hearing loss with hearing aids; balance disturbance with recurrent paraplegia 4 secondary to EMS recurrent exchange transfusion treatments; CVA 2008; 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 Discussed patient with Dr. Childs --- knows this patient well recommends Decadron 10 mg IV now for possible gastric patient of her MS and is aware patient has chronic pain seeking behavior. Recommends patient to be admitted for observation with neurology consult and patient be seen in a.m. Physician Communication Physician Communication call placed to neurology --- will see in consultation --administer decadron 10mg iv x 1; call placed to [facility] service discussed for obs admission w/ neurology consult Diagnosis Primary Impression: Back pain Additional Impression: Multiple sclerosis exacerbation Admitting Information Admitting Physician Requests: Observation Juany Story MD Jan 24, 2017 00:56
[2017-01-24] MEDS ORDERED: SODIUM CHLORIDE 0.9% FLUSH 10 ML FLUSH IVF PRN (01:00)
[2017-01-24 01:10] LABS: AUTOMATED NEUTROPHIL # 1.8 TH/MM3 (1.8-7.7); BASOPHIL % 0.7 % (0.0-2.0); EOSINOPHIL # 0.3 TH/MM3 (0-0.4); EOSINOPHIL % 5.6 % (0.0-4.0); HEMATOCRIT 36.9 % (35.0-46.0); HEMO FLAGS DIFF FINAL; LYMPH % 41.1 % (9.0-44.0); LYMPHOCYTE # 1.9 TH/MM3 (1.0-4.8); MEAN CELL VOLUME 83.2 FL (80.0-100.0); MEAN CORPUSCULAR HEMOGLOBIN 27.8 PG (27.0-34.0); MEAN CORPUSCULAR HGB CONC 33.4 % (32.0-36.0); MONO % 13.1 % (0.0-8.0); NEUT % 39.5 % (16.0-70.0); PLATELET COUNT 153 TH/MM3 (150-450); RED BLOOD COUNT 4.44 MIL/MM3 (4.00-5.30); RED CELL DISTRIBUTION WIDTH 13.3 % (11.6-17.2); WHITE BLOOD COUNT 4.7 TH/MM3 (4.0-11.0)
[2017-01-24 01:19] LABS: APTT (PATIENT) 24.5 SEC (24.3-30.1); INTERNATIONAL NORMALIZED RATIO 0.9 RATIO; PROTHROMBIN TIME - PATIENT 10.2 SEC (9.8-11.6)
[2017-01-24] MEDS ORDERED: KETOROLAC TROMETHAMINE 30 MG/ML (IVP) VIAL IV PUSH ONE (01:30)
[2017-01-24 01:31] LABS: ALKALINE PHOSPHATASE 94 U/L (45-117); ALT (GPT) 37 U/L (10-53); ANION GAP 7 MEQ/L (5-15); AST (GOT) 25 U/L (15-37); BICARBONATE 27.4 MEQ/L (21.0-32.0); BLOOD UREA NITROGEN 16 MG/DL (7-18); CHLORIDE 107 MEQ/L (98-107); CREATINE KINASE 41 U/L (26-192); GLOMERULAR FILTRATION RATE 128 ML/MIN (>89); POTASSIUM 3.8 MEQ/L (3.5-5.1); SODIUM (NA) 141 MEQ/L (136-145); TOTAL BILIRUBIN ADULT 0.2 MG/DL (0.2-1.0)
[2017-01-24] MEDS ORDERED: diphenhydrAMINE HCL 50 MG/ML VIAL IV PUSH ONE (02:15)
--- NOTE | 2017-01-24 03:26 | RADRPT ---
EXAM DATE/TIME: 01/24/2017 03:14 [facility] COMPARISON: CT BRAIN W/O CONTRAST, June 06, 2016, 16:19. INDICATIONS : General weakness. RADIATION DOSE: 34.72 CTDIvol (mGy) MEDICAL HISTORY : Seizures. Multiple sclerosis. Cardiovascular diseaseOvarian cancer. CVA. SURGICAL HISTORY : Pacemaker. Tubal ligation.Hysterectomy.Appendectomy. Cholecystectomy. ENCOUNTER: Initial ACUITY: 1 day PAIN SCALE: 3/10 LOCATION: cranial TECHNIQUE: Multiple contiguous axial images were obtained of the head. Using automated exposure control and adj ustment of the mA and/or kV according to patient size, radiation dose was kept as low as reasonably a chievable to obtain optimal diagnostic quality images. DICOM format image data is available electro nically for review and comparison. FINDINGS: CEREBRUM: The ventricles are normal for age. No evidence of midline shift, mass lesion, hemorrhage or acute in farction. No extra-axial fluid collections are seen. POSTERIOR FOSSA: The cerebellum and brainstem are intact. The 4th ventricle is midline. The cerebellopontine angle i s unremarkable. EXTRACRANIAL: The visualized portion of the orbits is intact. SKULL: The calvaria is intact. No evidence of skull fracture. CONCLUSION: Normal examination. Channing Kirk MD on January 24, 2017 at 3:24 Board Certified Radiologist. This report was verified electronically.
--- NOTE | 2017-01-24 03:37 | RADRPT ---
EXAM DATE/TIME: 01/24/2017 03:17 [facility] COMPARISON: No previous studies available for comparison. INDICATIONS : Lower back pain. RADIATION DOSE: 38.86 CTDIvol (mGy) MEDICAL HISTORY : Seizures. Multiple sclerosis. Cardiovascular diseaseOvarian cancer. CVA. SURGICAL HISTORY : Hysterectomy. Pacemaker.Tubal ligation.Appendectomy. Cholecystectomy. ENCOUNTER: Initial ACUITY: 1 day PAIN SCALE: 9/10 LOCATION: lumbar TECHNIQUE: Volumetric scanning of the lumbar spine was performed. Multiplanar reconstructions in the sagittal, coronal and oblique axial planes were performed. Using automated exposure control and adjustment of the mA and/or kV according to patient size, radiation dose was kept as low as reasonably achievable t o obtain optimal diagnostic quality images. DICOM format image data is available electronically for review and comparison. FINDINGS: VERTEBRAE: Normal vertebral body height. ALIGNMENT: No evidence of subluxation. T12-L1: The thecal sac has a normal diameter. No evidence of disc bulge or protrusion. The neural foramina are patent bilaterally. L1-L2: The thecal sac has a normal diameter. No evidence of disc bulge or protrusion. The neural foramina are patent bilaterally. L2-L3: The thecal sac has a normal diameter. No evidence of disc bulge or protrusion. The neural foramina are patent bilaterally. L3-L4: The thecal sac has a normal diameter. No evidence of disc bulge or protrusion. The neural foramina are patent bilaterally. L4-L5: The thecal sac has a normal diameter. No evidence of disc bulge or protrusion. The neural foramina are patent bilaterally. L5-S1: The thecal sac has a normal diameter. No evidence of disc bulge or protrusion. The neural foramina are patent bilaterally. CONCLUSION: Normal examination. Channing Kirk MD on January 24, 2017 at 3:35 Board Certified Radiologist. This report was verified electronically.
[2017-01-24 04:36] LABS: BLOOD, URINE NEG (NEG); GLUCOSE,URINE NEG (NEG); KETONE, URINE NEG (NEG); NITRITE,URINE NEG (NEG); PH, URINE 5.5 (5.0-8.5); SQUAMOUS EPITHELIAL CELL URINE <1 /hpf (0-5); URINE COLOR LIGHT-YELLOW (YELLW/STRAW)
[2017-01-24 04:37] LABS: COMMENT (UR) CATH-CULTURE IND; CULTURE IF INDICATED CATH CULTURE IND
[2017-01-24] MEDS ORDERED: DEXAMETHASONE SOD PHOS 20 MG/5 ML VIAL IV PUSH ONE (05:15)
[2017-01-24] MEDS ORDERED: GADODIAMIDE PF 287 MG/ML 5 ML VIAL (for RAD MRI) IVCONTRAST ONE (05:28)
--- NOTE | 2017-01-24 06:27 | HHI.HP ---
[facility] Tony Bettencourt M.D. Admission Diagnosis recurrent weakness; h/o MS Diagnoses: Travel History International Travel<30 Days: No Contact w/Intl Traveler <30 Da: No Traveled to Known Affected Are: No History of Present Illness 46-year-old female with a past medical history of seizure disorder, MS, CVA and RA was brought to the emergency department by EMS with a chief complaint of an exacerbation of her multiple sclerosis with bilateral lower extremity weakness. At the time of my interview, the patient was hostile, combative and verbally abusive demanding Dilaudid for her leg pain. She refused to tell me what brought her in. Per ED records, the patient has had progressively worsening lower extremity weakness with difficulty walking and driving for the past several days to weeks. She reports that she had to scoot down her stairs and crawl to the couch because her weakness had progressed to the point where she was unable to walk. During her previous hospitalization, the patient was evaluated by both neurology and psychiatry. 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 Past Surgical History Pacemaker placement in 2010 Appendectomy Cholecystectomy Removal of ovarian tumor Esophageal dilation 2 Reported Medications Reported Meds & Active Scripts Active Reported Promethazine (Promethazine HCl) 12.5 Mg Tab 25 Mg PO Q4H PRN Pantoprazole (Pantoprazole Sodium) 20 Mg Tab 40 Mg PO DAILY Bethanechol 10 Mg Tab 10 Mg PO Q8HR Amitiza (Lubiprostone) 24 Mcg Cap 24 Mg PO BID Lasix (Furosemide) 20 Mg Tab 20 Mg PO DAILY B-12 (Cyanocobalamin) 1,000 Mcg Subl 1,000 Mcg SL DAILY D-2000 Maximum Strength (Cholecalciferol) 2,000 Unit Tab 5,000 Units PO DAILY Gabapentin 600 Mg Tab 600 Mg PO HS Midodrine 10 Mg Tab 10 Mg PO TID Lactulose Liq (Lactulose (Encephalopathy) Liq) 19 Gm/15 Ml Soln 15 Ml PO DAILY Digoxin 0.125 Mg Tab 0.125 Mg PO DAILY Clonazepam 1 Mg Tab 1 Mg PO BID Copaxone Inj (Glatiramer Inj) 20 Mg/Ml Syr 20 Mg SQ DAILY Allergies: Coded Allergies: Fish Containing Products (Unverified Allergy, Severe, including all shell fish causes anaphylactic, 12/22/16) Sulfa (Sulfonamide Antibiotics) (Unverified Allergy, Severe, hives, ) acetaminophen (Unverified Allergy, Severe, HIVES, 12/22/16) adhesive (Unverified Allergy, Severe, MAKES MY SKIN BLEED, 12/22/16) carbamazepine (Unverified Allergy, Severe, cardiac arrest, 12/22/16) codeine (Unverified Allergy, Severe, SEIZURE, 12/22/16) iodine (Unverified Allergy, Severe, Anaphylaxis, 12/22/16) latex (Unverified Allergy, Severe, HIVES, 12/22/16) meperidine (Unverified Allergy, Severe, anaphylactic shock, 12/22/16) oxycodone (Unverified Allergy, Severe, HIVES, 12/22/16) phenobarbital (Unverified Allergy, Severe, hives, 12/22/16) phenytoin (Unverified Allergy, Severe, HIVES, 12/22/16) potassium iodide (Unverified Allergy, Severe, Anaphylaxis, 12/22/16) povidone-iodine (Unverified Allergy, Severe, Anaphylaxis, 12/22/16) propoxyphene (Unverified Allergy, Severe, SWELLING OF THE THROAT, 12/22/16 ) shellfish derived (Unverified Allergy, Severe, Sweeling to throat, ) sodium iodide (Unverified Allergy, Severe, Anaphylaxis, 12/22/16) sodium iodide (Unverified Allergy, Severe, Anaphylaxis, 12/22/16) Family History History of coronary artery disease in mother, history of [place]'s disease in father. Social History No alcohol or tobacco use Physical Exam Vital Signs Vital Signs Date Time Temp Pulse Resp B/P (MAP) Pulse Ox O2 Delivery O2 Flow Rate FiO2 01/24/17 06:08 Room Air 01/23/17 23:44 98.1 73 20 102/71 (86) 98 Physical Exam GENERAL: female lying in bed SKIN: No rashes, ecchymoses or lesions. Cool and dry. HEAD: Atraumatic. Normocephalic. No temporal or scalp tenderness. EYES: Pupils equal round and reactive. Extraocular motions intact. No scleral icterus. No injection or drainage. ENT: Nose without bleeding, purulent drainage. Airway patent. NECK: Trachea midline. No JVD or lymphadenopathy. Supple, nontender, no meningeal signs. CARDIOVASCULAR: Regular rate and rhythm without murmurs, gallops, or rubs. RESPIRATORY: Clear to auscultation in the anterior garcia GASTROINTESTINAL: Abdomen soft, non-tender, nondistended. No hepato-splenomegaly , or palpable masses. No guarding. MUSCULOSKELETAL: Extremities without clubbing, cyanosis, or edema. Bilateral lower extremities extremely tender to palpation. NEUROLOGICAL: Awake and alert. Unable to assess neurologic function as patient refused to participate in exam. Laboratory Laboratory Tests Test 01/24/17 00:30 01/24/17 04:19 White Blood Count 4.7 Red Blood Count 4.44 Hemoglobin 12.3 Hematocrit 36.9 Mean Corpuscular Volume 83.2 Mean Corpuscular Hemoglobin 27.8 Mean Corpuscular Hemoglobin Concent 33.4 Red Cell Distribution Width 13.3 Platelet Count 153 Mean Platelet Volume 9.2 Neutrophils (%) (Auto) 39.5 Lymphocytes (%) (Auto) 41.1 Monocytes (%) (Auto) 13.1 Eosinophils (%) (Auto) 5.6 Basophils (%) (Auto) 0.7 Neutrophils # (Auto) 1.8 Lymphocytes # (Auto) 1.9 Monocytes # (Auto) 0.6 Eosinophils # (Auto) 0.3 Basophils # (Auto) 0.0 CBC Comment DIFF FINAL Differential Comment Prothrombin Time 10.2 Prothromb Time International Ratio 0.9 Activated Partial Thromboplast Time 24.5 Blood Urea Nitrogen 16 Creatinine 0.52 Random Glucose 92 Total Protein 6.8 Albumin 3.6 Calcium Level 8.5 Alkaline Phosphatase 94 Aspartate Amino Transf (AST/SGOT) 25 Alanine Aminotransferase (ALT/SGPT) 37 Total Bilirubin 0.2 Sodium Level 141 Potassium Level 3.8 Chloride Level 107 Carbon Dioxide Level 27.4 Anion Gap 7 Estimat Glomerular Filtration Rate 128 Total Creatine Kinase 41 Troponin I LESS THAN 0.02 Urine Color LIGHT-YELLOW Urine Turbidity CLEAR Urine pH 5.5 Urine Specific Wilder 1.008 Urine Protein NEG Urine Glucose (UA) NEG Urine Ketones NEG Urine Occult Blood NEG Urine Nitrite NEG Urine Bilirubin NEG Urine Urobilinogen LESS THAN 2.0 Urine Leukocyte Esterase LARGE Urine RBC 1 Urine WBC 18 Urine Squamous Epithelial Cells <1 Microscopic Urinalysis Comment CATH-CULTURE IND Date/Time Source Procedure Growth Status 01/24/17 04:19 Urine Catheterized Urine Urine Culture Pending Received Result Diagram: 01/24/172901/24/1729 Caprini VTE Risk Assessment Caprini VTE Risk Assessment: No/Low Risk (score <= 1) Caprini Risk Assessment Model Point Value = 1 Point Value = 2 Point Value = 3 Point Value = 5 Age 41-60 Minor surgery BMI > 25 kg/m2 Swollen legs Varicose veins or History of unexplained or recurrent spontaneous Oral contraceptives or hormone replacement Sepsis (< 1 month) Serious lung disease, including pneumonia (< 1 month) Abnormal pulmonary function Acute myocardial infarction Congestive heart failure (< 1 month) History of inflammatory bowel disease Medical patient at bed rest Age 61-74 Arthroscopic surgery Major open surgery (> 45 min) Laparoscopic surgery (> 45 min) Malignancy Confined to bed (> 72 hours) Immobilizing plaster cast Central venous access Age >= 75 History of VTE Family history of VTE Factor V Leiden Prothrombin [id number] Lupus anticoagulant Anticardiolipin antibodies Elevated serum homocysteine Heparin-induced thrombocytopenia Other congenital or acquired thrombophilia Stroke (< 1 month) Elective arthroplasty Hip, pelvis, or leg fracture Acute spinal cord injury (< 1 month) Prophylaxis Regimen Total Risk Factor Score Risk Level Prophylaxis Regimen 0-1 Low Early ambulation 2 Moderate Order ONE of the following: *Sequential Compression Device (SCD) *Heparin 5000 units SQ BID 3-4 Higher Order ONE of the following medications: *Heparin 5000 units SQ TID *Enoxaparin/Lovenox 40 mg SQ daily (WT < 150 kg, CrCl > 30 mL/min) *Enoxaparin/Lovenox 30 mg SQ daily (WT < 150 kg, CrCl > 10-29 mL/min) *Enoxaparin/Lovenox 30 mg SQ BID (WT < 150 kg, CrCl > 30 mL/min) AND/OR *Sequential Compression Device (SCD) 5 or more Highest Order ONE of the following medications: *Heparin 5000 units SQ TID (Preferred with Epidurals) *Enoxaparin/Lovenox 40 mg SQ daily (WT < 150 kg, CrCl > 30 mL/min) *Enoxaparin/Lovenox 30 mg SQ daily (WT < 150 kg, CrCl > 10-29 mL/min) *Enoxaparin/Lovenox 30 mg SQ BID (WT < 150 kg, CrCl > 30 mL/min) AND *Sequential Compression Device (SCD) Assessment and Plan Assessment and Plan 46-year-old female with a history of seizures, MS, CVA and RA was brought to the emergency department by EMS for progressive lower extremity weakness. 1. LE weakness/MS Neurology consulted, appreciate recommendations Unable to assess neurologic status as patient refused to participate in exam Concern for malingering as patient is demanding IV Dilaudid and has diagnosis of factitious disorder Given Decadron in the ED Consult Psychiatry 2. History of seizure disorder Patient not currently taking any medications EEG on 12/28 with no seizure activity however probable structural abnormality Seizure precautions 3. History of SVT/Bradycardia/Pacemaker placement Continue home Digoxin, Lasix Unable to obtain information about patient's music adapter as she would not cooperate in my exam FEN Heart healthy diet Electrolytes: monitor and replete prn Heparin PT Consult CM consult Shayla Farley MD Jan 24, 2017 06:27
[2017-01-24 06:42] VITALS: BP 92/62; PULSE 85; RESP 18; TEMP 98.4; O2SAT 100
[2017-01-24] MEDS ORDERED: BISACODYL 10 MG SUPP RECTAL PRN (06:45)
[2017-01-24] MEDS ORDERED: LACTULOSE SYRUP 20 GM/30 ML CUP PO PRN (06:45)
[2017-01-24] MEDS ORDERED: SENNOSIDES 8.6 MG TAB PO PRN (06:45)
[2017-01-24] MEDS ORDERED: ACETAMINOPHEN 325 MG TAB PO PRN (06:45)
[2017-01-24] MEDS ORDERED: MAGNESIUM HYDROXIDE SUSP 30 ML CUP PO PRN (06:45)
[2017-01-24] MEDS ORDERED: SODIUM CHLORIDE 0.9% FLUSH 10 ML FLUSH IV FLUSH PRN (06:45)
[2017-01-24] MEDS ORDERED: NALOXONE HCL 0.4 MG/ML AMP IV PUSH PRN (06:45)
[2017-01-24] MEDS ORDERED: ONDANSETRON HCL 4 MG/2 ML VIAL IVP PRN (06:45)
[2017-01-24] MEDS ORDERED: AMITIZA 24 MCG PO SCH (09:00)
[2017-01-24] MEDS ORDERED: PANTOPRAZOLE SOD 20 MG DELAYED RELEASE TAB PO SCH (09:00)
[2017-01-24] MEDS ORDERED: DIGOXIN 0.125 MG TAB PO SCH (09:00)
[2017-01-24] MEDS: MIDODRINE 5 MG TAB PO SCH ×4 (09:00→17:56)
[2017-01-24] MEDS ORDERED: DOCUSATE SODIUM 50 MG/SENNA 8.6 MG TAB PO SCH (09:00)
[2017-01-24] MEDS ORDERED: SODIUM CHLORIDE 0.9% FLUSH 10 ML FLUSH IV FLUSH SCH (09:00)
[2017-01-24] MEDS ORDERED: GLATIRAMER 20 MG SQ SCH (09:00)
[2017-01-24] MEDS ORDERED: FUROSEMIDE 20 MG TAB PO SCH (09:00)
[2017-01-24 09:21] VITALS: BP 98/68
[2017-01-24] MEDS: HEPARIN SODIUM - SQ 10,000 UNITS/ML VIAL SQ SCH ×2 (09:34→17:06)
[2017-01-24] MEDS: clonazePAM 1 MG TAB PO PRN ×2 (09:35→17:56)
[2017-01-24] MEDS: diphenhydrAMINE HCL 25 MG CAP PO PRN ×2 (09:40→17:06)
[2017-01-24] MEDS ORDERED: EFFE150C PO (09:45)
[2017-01-24] MEDS: KETOROLAC TROMETHAMINE 10 MG TAB PO PRN ×2 (11:07→17:07)
[2017-01-24 11:11] VITALS: BP 110/69; PULSE 78; RESP 18; O2SAT 97
[2017-01-24] MEDS: KETOROLAC TROMETHAMINE 30 MG/ML (IVP) VIAL IV PUSH PRN ×2 (13:42→18:03)
--- NOTE | 2017-01-24 15:05 | HHI.PR ---
Subjective Remarks Follow-up paraparesis. Still with bilateral lower extremity weakness. Also with back and lower extremity pain states Toradol does not help. Requesting Dilaudid aware of addicting potential. Also with history of constipation. No UTI symptoms. Seen with fianc. Discussed with RN Objective Vitals Vital Signs Date Time Temp Pulse Resp B/P (MAP) Pulse Ox O2 Delivery O2 Flow Rate FiO2 01/24/17 13:40 18 01/24/17 11:11 78 18 110/69 (83) 97 01/24/17 09:21 98/68 (78) 01/24/17 06:42 98.4 85 18 92/62 (72) 100 01/24/17 06:08 Room Air 01/23/17 23:44 98.1 73 20 102/71 (81) 98 Result Diagram: 01/24/17 0030 01/24/17 0030 Imaging Last Impressions Lumbar Spine CT 01/24/17 0000 Signed Impressions: Service Date/Time: Tuesday, January 24, 2017 03:17 - CONCLUSION: Normal examination. Channing Kirk MD Head CT 01/24/17 0000 Signed Impressions: Service Date/Time: Tuesday, January 24, 2017 03:14 - CONCLUSION: Normal examination. Channing Kirk MD Objective Remarks GENERAL: female lying in bed SKIN: No rashes, ecchymoses or lesions. Cool and dry. HEAD: Atraumatic. Normocephalic. No temporal or scalp tenderness. EYES: Pupils equal round and reactive. Extraocular motions intact. No scleral icterus. No injection or drainage. ENT: Nose without bleeding, purulent drainage. Airway patent. NECK: Trachea midline. No JVD or lymphadenopathy. Supple, nontender, no meningeal signs. CARDIOVASCULAR: Regular rate and rhythm without murmurs, gallops, or rubs. RESPIRATORY: Clear to auscultation in the anterior garcia GASTROINTESTINAL: Abdomen soft, non-tender, nondistended. No guarding. MUSCULOSKELETAL: Extremities without clubbing, cyanosis, or edema. Right CVA tenderness NEUROLOGICAL: Awake and alert. Cranial nerves intact. Speech is clear. Patient has bilateral lower extremity weakness A/P Problem List: (1) Multiple sclerosis exacerbation ICD Code: G35 - Exacerbation of multiple sclerosis Status: Acute Assessment and Plan 46-year-old female with a history of seizures, MS, CVA and RA was brought to the emergency department by EMS for progressive lower extremity weakness. 1. LE weakness/MS Neurology consulted, appreciate recommendations. Follow-up MRI of the brain, cervical and lumbar spine. Concern for malingering as patient is demanding IV Dilaudid and has diagnosis of factitious disorder Given Decadron in the ED Discussed with psychiatry ct toradol. Will consider dilaudid if neuro starts tx for MS 2. History of seizure disorder Patient not currently taking any medications EEG on 12/28 with no seizure activity however probable structural abnormality Seizure precautions 3. History of SVT/Bradycardia/Pacemaker placement Continue home Digoxin, Lasix 4. Abnormal urinalysis. Follow urine culture FEN Heart healthy diet Electrolytes: monitor and replete prn Heparin PT Consult CM consult Discharge Planning When cleared by neurology Krunal Oconnor MD Jan 24, 2017 15:04
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
--- NOTE | 2017-01-24 16:03 | RADRPT ---
EXAM DATE/TIME: 01/24/2017 14:42 [facility] COMPARISON: MRI BRAIN W & W/O CONTRAST, July 15, 2015, 12:17. INDICATIONS : Multiple Sclerosis CONTRAST: 14 cc Omniscan (gadodiamide) IV MEDICAL HISTORY : Carcinoma, ovarian. SURGICAL HISTORY : Appendectomy. Cholecystectomy. Hysterectomy. Pacemaker. ENCOUNTER: Initial ACUITY: 2 day PAIN SCORE: 7/10 LOCATION: Bilateral cranial TECHNIQUE: Multiplanar, multisequence MRI of the brain was performed both prior to and following the administrat ion of paramagnetic contrast. FINDINGS: CEREBRUM: The ventricles are normal for age. No evidence of midline shift, mass lesion, hemorrhage or acute in farction. No extraaxial fluid collections are seen. The pituitary gland and suprasellar cistern are normal in configuration. WHITE MATTER: Minimal periventricular white matter changes are evident small lacunar level to region just deep to t he internal capsule. POSTERIOR FOSSA: The cerebellum and brainstem are intact. The 4th ventricle is midline. The cerebellopontine angle is unremarkable. The cerebellar tonsils are normal in position. DIFFUSION IMAGING: No focal areas of restricted diffusion are seen. No evidence of acute infarction. EXTRACRANIAL: The visualized portions of the orbits and paranasal sinuses are unremarkable. POST-CONTRAST: No abnormal areas of parenchymal or dural enhancement. No evidence of blood-brain barrier breakdown. CONCLUSION: Very minimal white matter changes not typical of multiple sclerosis. Lacunar infarcts less than 1 cm left orbital region. Dennys Lacey MD FACR on January 24, 2017 at 15:59 Board Certified Radiologist. This report was verified electronically.
--- NOTE | 2017-01-24 16:04 | RADRPT ---
EXAM DATE/TIME: 01/24/2017 14:42 [facility] COMPARISON: MRI LUMBAR SPINE W & W/O CONTRAST, July 15, 2015, 12:17. INDICATIONS : Mulitple sclerosis. CONTRAST: 14 cc Omniscan (gadodiamide) IV MEDICAL HISTORY : Carcinoma, ovarian. SURGICAL HISTORY : Hysterectomy. Appendectomy. Cholecystectomy. Pacemaker. ENCOUNTER: Initial ACUITY: 1 day PAIN SCORE: 7/10 LOCATION: Bilateral lower back region. TECHNIQUE: Multiplanar multisequence MRI of the lumbar spine was performed with and without contrast. FINDINGS: The most caudal appearing lumbar vertebra is numbered as L5. VERTEBRAE: Homogeneous signal. Normal alignment. CONUS: Normal level and configuration. POST CONTRAST: No abnormal areas of contrast enhancement are seen. T12-L1: There is a minimal left paracentral disc bulge. This is a long-term stable. Central canal is patent. Neural foramina are patent. L1-L2: The thecal sac has a normal diameter. No evidence of disc bulge or protrusion. The neural foramina are patent bilaterally. L2-L3: The thecal sac has a normal diameter. No evidence of disc bulge or protrusion. The neural foramina are patent bilaterally. L3-L4: The thecal sac has a normal diameter. No evidence of disc bulge or protrusion. The neural foramina are patent bilaterally. L4-L5: There is disc desiccation without significant loss of height. The thecal sac has a normal diameter. No evidence of disc bulge or protrusion. The neural foramina are patent bilaterally. L5-S1: There is disc desiccation with mild loss of height. A small central bulge observed. This is stable. C entral canal, lateral recesses, and neural foramen are patent. CONCLUSION: 1. Mild degenerative changes without acute abnormality. Eyal Alston Jr., MD on January 24, 2017 at 15:59 Board Certified Radiologist. This report was verified electronically.
--- NOTE | 2017-01-24 16:10 | RADRPT ---
EXAM DATE/TIME: 01/24/2017 14:42 [facility] COMPARISON: MRI CERVICAL SPINE W & W/O CONTRAST, July 15, 2015, 12:17. INDICATIONS : Mulitple sclerosis. CONTRAST: 14 cc Omniscan (gadodiamide) IV MEDICAL HISTORY : Multiple sclerosis. Carcinoma, ovarian. SURGICAL HISTORY : Hysterectomy. Appendectomy. Cholecystectomy. Pacemaker ENCOUNTER: Initial ACUITY: 1 day PAIN SCORE: 7/10 LOCATION: Bilateral neck region. TECHNIQUE: Multiplanar, multisequence MRI examination of the cervical spine was performed. FINDINGS: VERTEBRAE: Normal vertebral body height. Homogeneous marrow signal. ALIGNMENT: No evidence of subluxation. CORD: Normal configuration and signal. POST FOSSA: The cerebellar tonsils are normal in position. POST-CONTRAST: No abnormal areas of enhancement are seen. C2-C3: The thecal sac has a normal configuration. There is no evidence of disc herniation or spinal canal stenosis. The neural foramina are patent bilaterally. C3-C4: The thecal sac has a normal configuration. There is no evidence of disc herniation or spinal canal s tenosis. The neural foramina are patent bilaterally. C4-C5: The thecal sac has a normal configuration. There is no evidence of disc herniation or spinal canal s tenosis. The neural foramina are patent bilaterally. C5-C6: Minimal bulging is present at C5-C6 causing mild flattening the anterior thecal space without signifi cant stenosis. C6-C7: Minimal bulge is present slightly larger than at C5-C6. There is no stenosis. C7-T1: The thecal sac has a normal configuration. There is no evidence of disc herniation or spinal canal s tenosis. The neural foramina are patent bilaterally. CONCLUSION: Mild degenerative disc disease.. Dennys Lacey MD FACR on January 24, 2017 at 16:07 Board Certified Radiologist. This report was verified electronically.
[2017-01-24 17:08] VITALS: BP 105/71; PULSE 70; RESP 20; TEMP 96.7; O2SAT 97
[2017-01-24 19:03] VITALS: RESP 18
[2017-01-24] MEDS ORDERED: GABAPENTIN 300 MG CAP PO SCH (21:00)
--- NOTE | 2017-01-24 22:09 | PD.AMA ---
Against Medical Advice Note AMA Statement Patient Rand Fry has decided to leave the hospital against medical advice. This patient has the capacity to refuse care and understands the risks of leaving, including permanent disability and/or , and has had an opportunity to ask questions about her condition. The patient has been informed that she may return for care at any time, and follow up has been arranged/ advised. Krunal Oconnor MD Jan 24, 2017 22:09
--- NOTE | 2017-01-25 06:23 | MB ---
cc: NATALIA MALDONADO DATE OF CONSULTATION 01/24/2017 REASON FOR CONSULTATION History of multiple sclerosis and recurrent weakness. HISTORY OF PRESENT ILLNESS Ms. Fry is a 42-year-old female with a past medical history of multiple sclerosis where the patient states that she has had "eight lesions on the brain and two lesion on the spine". She used to follow up with several neurologists at the [facility] in [place] and then she followed up with Dr. Shelby and she was diagnosed with progressive MS and she states that she is currently on daily Copaxone and she has received plasma exchange which helped her for 2-1/2 years without any relapse and she had received several doses of IV Solu-Medrol for relapses of MS. She also states that she has had a stroke with left lower extremity weakness and she was she was incorrectly diagnosed with seizures. The patient used to work in the medical field as a respiratory therapist. As reported in the medical records, the patient presented yesterday to the [facility] Emergency Room. She was hostile and combative and verbally abusive, demanding Dilaudid for her leg pain. She has had progressively worsening lower extremity weakness, difficulty walking and she was diagnosed with right foot drop a few years ago. She denies sphincter control disturbances, neck pain or low back pain. Denies headache, double vision , blurred vision, difficulty in color vision. She was given a diagnosis of factitious disorder on her previous visits. Review of the medical records revealed imaging of the brain that was negative and CSF analysis which was negative for any evidence of MS and negative for oligoclonal bands. REVIEW OF SYSTEMS A 12-point review of state systems is negative except for what is stated in the HPI. PAST MEDICAL HISTORY 1. Seizure disorder. 2. MS. 3. Stroke. 4. Chronic low back pain. 5. Pacemaker for bradycardia. PAST SURGICAL HISTORY 1. Pacemaker placement in 2010. 2. Appendectomy. 3. Cholecystectomy. 4. Removal of ovarian tumor. 5. Esophageal dilatation x2. MEDICATIONS 1. Promethazine. 2. Pantoprazole. 3. Bethanechol. 4. Amitiza. 5. Lasix. 6. B12. 7. D-2000. 8. Gabapentin. 9. Midodrine. 10. Lactulose. 11. Digoxin. 12. Clonazepam. 13. Copaxone. ALLERGIES FISH CONTAINING PRODUCTS. SULFA. ACETAMINOPHEN. ADHESIVE. CARBAMAZEPINE. CODEINE. IODINE. LATEX. MEPERIDINE. OXYCODONE. PHENOBARBITAL. PHENYTOIN. POTASSIUM IODIDE. POVIDONE-IODINE. PROPOXYPHENE. SHELLFISH DERIVATIVE. SODIUM IODIDE. FAMILY HISTORY Coronary artery disease in mother. Wirt's disease father. SOCIAL HISTORY No alcohol, tobacco abuse or illicit drug abuse. PHYSICAL EXAMINATION GENERAL: Awake, alert, good historian, anxious, aggressive mood. HEENT: Atraumatic, normocephalic. Pale. Intact hearing. Intact vision. NECK: Supple. No signs of meningeal irritation. Nontender. CARDIOVASCULAR: Regular rate and rhythm. RESPIRATORY: Clear to auscultation. No wheezes. Gastrointestinal: Soft abdomen, not tender, not distended. MUSCULOSKELETAL: No clubbing, cyanosis or edema. NEUROLOGIC: Awake, alert, oriented to time, person and place. No dysarthria. No dysphasia. Pupils equally reacting to light. No APD, no nystagmus. Intact external ocular motility. No facial asymmetry. Intact facial sensation. Jaw jerk is normal. Upper extremities 5/5. No other abnormal movement. Normal tone. Lower extremities grade 5- bilateral hip flexion and knee extension. Right foot drop grade 3/5, good extension. Reflexes 1+ bilateral in upper extremities, 2+ with crossed adductor reflex at knees. Left ankle clonus, nonsustained. Right foot with plantars bilaterally downgoing. [id number] is intact. Intact sensation throughout. PSYCHIATRIC: Cooperative at times with aggressive moods. No hallucinations. DIAGNOSTIC TESTS White blood cells 4.7, hemoglobin 12.3, platelet 153. INR 0.9. BUN 16, creatinine 0.52, total protein 6.8, calcium 8.5, alkaline phosphatase 94, AST 25 , ALT 37, bilirubin 0.2, sodium 141, potassium 3.8, anion gap 7. DIAGNOSTIC IMAGING - Brain/cervical/lumbar MRI with no lesions suggestive of multiple sclerosis. - Review of imaging in the past with brain MRI with no indication of demyelinating lesions. - Review of CSF study in the past with no evidence of an abnormal CSF. Negative for any evidence of demyelination, negative oligoclonal band, myelin basic protein, IgG index. DIAGNOSTIC IMPRESSION 1. History of multiple sclerosis Unverified, with no diagnostic imaging or lab evidence of demyelination, demyelinating lesion. Patient with bilateral leg weakness with no acute or chronically demyelinating lesions in the neuraxis and negative CSF study or evidence of demyelination. 2. Factitious disorder. 3. History of seizure disorder. EEG on 12/28 with no seizure activity. MRI of the brain with no structural abnormality. The patient states that she has been incorrectly diagnosed with seizures. 4. History of supraventricular tachycardia/bradycardia status post pacemaker placement. PLAN - In view of the unremarkable neuraxis imaging and review of the lab tests/CSF analysis with no evidence of a demyelination disorder, no clinical/radiologic/ lab evidence of a demyelinating lesion. - No need for further neurologic workup. - PT and OT recommendations are appreciated. - Follow-up with Psychiatry. - Follow-up with primary care physician. - Follow-up with pain management for chronic pain. - Neurology will sign off. - Follow-up with her outpatient neurologist, Dr. Shelby. Thank you for the opportunity to participate in the care of your patient. MD JAVIER Bronson/MARK /9:06 PM /5:56 AM MARCUS
== END 2017-01-24 21:32 | disposition left against medical advice (07) ==
LOC: NEPC 23:39 → NEDA 01-24 05:27 → NEPHCDU 01-24 06:26
PROVIDERS: ADMIT Internal Medicine; ATTEND Internal Medicine
DX: G35 Multiple sclerosis (principal); R53.1 Weakness; M54.5 Low back pain; G89.29 Other chronic pain; D64.9 Anemia, unspecified; I48.91 Unspecified atrial fibrillation; F41.9 Anxiety disorder, unspecified; K21.9 Gastro-esophageal reflux disease without esophagitis; G43.909 Migraine, unspecified, not intractable, without status migrainosus; Z95.0 Presence of cardiac pacemaker; Z82.49 Family history of ischemic heart disease and other diseases of the circulatory system
CPT/HCPCS: 70450; 70553; 72131; 72156; 72158; 80053; 81001; 82550; 84484; 85025; 85610; 85730; 87086; 96374; 96375; 96376; 97162; 99285; A9579; G0378; G8987; G8988; J1100; J1200; J1644; J1885

== ENCOUNTER 2017-03-10 22:48 | Emergency (ER) | payer BC ==
[~2017-03-10] VITALS: Ht 167.6 cm; Wt 77.5 kg
[~2017-03-10 22:48] MED LIST changes: -CEPH-460 PO; -LEVE500 PO; -VIST25CA PO
[2017-03-10 22:53] VITALS: BP 110/78; PULSE 88; RESP 22; TEMP 98; O2SAT 99
--- NOTE | 2017-03-10 23:28 | PD ---
HPI Chief Complaint: Chest Pain Time Seen by Provider: 23:09 Travel History International Travel<30 days: No Contact w/Intl Traveler<30days: No Traveled to known affect area: No History of Present Illness HPI 46-year-old female complains of chest pain and shortness of breath. Patient states that the symptoms started about an hour prior coming to the emergency room. Patient states that she was hyperventilating for short period of time yesterday. Patient has generalized malaise and weakness today. Patient started having across anterior chest wall pain this evening. Patient states that the chest pain is a pressure pain with radiation to left side of the neck and left arm. Patient states that she has intermittent dry cough this evening. Patient states that she has nausea and dizziness with the chest pain. EMS was called. Patient was given aspirin 81 mg 2 prior to arrival. On a scale of 1-10 the pain is a 10. Patient has history of seizure disorder, MS, CVA, chronic back pain, pacemaker placement for bradycardia. Patient states that she has history of MA in the past. PFSH Past Medical History Hx Anticoagulant Therapy: No Anemia: Yes Arthritis: No Asthma: No Atrial Fibrillation: Yes Autoimmune Disease: Yes (MS 2006/ has undergone plasma exchange therapy) Blood Disorders: No Anxiety: Yes Depression: No Heart Rhythm Problems: No Cancer: Yes (ovarian) Cardiac Catheterization: No Cardiovascular Problems: No High Cholesterol: No Chemotherapy: No Chest Pain: No Congestive Heart Failure: No COPD: No Cerebrovascular Accident: Yes Diabetes: No Diminished Hearing: Yes (HEARING AIDS) Endocrine: No GERD: Yes Glaucoma: No Genitourinary: Yes (hard to void at times, only a tiny bit at a time) Headaches: Yes Hepatitis: No Hiatal Hernia: No Heparin Induced Thrombocytopen: No Hypertension: No Immune Disorder: No Implanted Vascular Access Dvce: Yes (PACEMAKER,MEDTRONIC ) Kidney Stones: No Medical other: Yes (reflux,stomach ulcers) Musculoskeletal: Yes (very weak from MS) Neurologic: Yes (MS and Seizures) Psychiatric: No Reproductive: No Respiratory: No Immunizations Current: Yes Migraines: Yes Myocardial Infarction: No Radiation Therapy: No Renal Failure: No Seizures: Yes ( A CHILD, RESOLVED) Sickle Cell Disease: No Sleep Apnea: No Thyroid Disease: No Ulcer: No ?: Not Menopausal: Yes : 3 Para: 3 Miscarriage: 0 : 0 Ovarian Cysts: Yes Tubal Ligation: Yes Past Surgical History Abdominal Surgery: Yes Appendectomy: Yes Arteriovenous Shunt: No Cardiac Surgery: Yes (PACEMAKER 2011 multiple sclerosis complications, vagal nerve dysfn.) Section: Yes Cholecystectomy: Yes Coronary Artery Bypass Graft: No Ear Surgery: No Endocrine Surgery: No Eye Surgery: No Genitourinary Surgery: No Hysterectomy: Yes Insulin Pump: No Joint Replacement: No Neurologic Surgery: No Oral Surgery: No Pacemaker: Yes (UNKNOWN ) Thoracic Surgery: No Other Surgery: Yes (, REMOVAL OF GALLBLADDER) Family History Family Myocardial Infarction: Yes (mother had [id number], father had kisha disease per pt) Social History Alcohol Use: Yes (occ) Tobacco Use: No Substance Use: No Allergies-Medications (Allergen,Severity, Reaction): Coded Allergies: Fish Containing Products (Unverified Allergy, Severe, including all shell fish causes anaphylactic, 12/22/16) Sulfa (Sulfonamide Antibiotics) (Unverified Allergy, Severe, hives, ) acetaminophen (Unverified Allergy, Severe, HIVES, 12/22/16) adhesive (Unverified Allergy, Severe, MAKES MY SKIN BLEED, 12/22/16) carbamazepine (Unverified Allergy, Severe, cardiac arrest, 12/22/16) codeine (Unverified Allergy, Severe, SEIZURE, 12/22/16) iodine (Unverified Allergy, Severe, Anaphylaxis, 12/22/16) latex (Unverified Allergy, Severe, HIVES, 12/22/16) meperidine (Unverified Allergy, Severe, anaphylactic shock, 12/22/16) oxycodone (Unverified Allergy, Severe, HIVES, 12/22/16) phenobarbital (Unverified Allergy, Severe, hives, 12/22/16) phenytoin (Unverified Allergy, Severe, HIVES, 12/22/16) potassium iodide (Unverified Allergy, Severe, Anaphylaxis, 12/22/16) povidone-iodine (Unverified Allergy, Severe, Anaphylaxis, 12/22/16) propoxyphene (Unverified Allergy, Severe, SWELLING OF THE THROAT, 12/22/16 ) shellfish derived (Unverified Allergy, Severe, Sweeling to throat, ) sodium iodide (Unverified Allergy, Severe, Anaphylaxis, 12/22/16) sodium iodide (Unverified Allergy, Severe, Anaphylaxis, 12/22/16) Reported Meds & Prescriptions Reported Meds & Active Scripts Active Reported Effexor XR 24 HR (Venlafaxine HCl) 150 Mg Cap 150 Mg PO TID Promethazine (Promethazine HCl) 12.5 Mg Tab 25 Mg PO Q4H PRN Pantoprazole (Pantoprazole Sodium) 20 Mg Tab 40 Mg PO DAILY Bethanechol 10 Mg Tab 10 Mg PO Q8HR Amitiza (Lubiprostone) 24 Mcg Cap 24 Mg PO BID Lasix (Furosemide) 20 Mg Tab 20 Mg PO DAILY B-12 (Cyanocobalamin) 1,000 Mcg Subl 1,000 Mcg SL DAILY D-2000 Maximum Strength (Cholecalciferol) 2,000 Unit Tab 5,000 Units PO DAILY Gabapentin 600 Mg Tab 600 Mg PO HS Midodrine 10 Mg Tab 10 Mg PO TID Lactulose Liq (Lactulose (Encephalopathy) Liq) 19 Gm/15 Ml Soln 15 Ml PO DAILY Digoxin 0.125 Mg Tab 0.125 Mg PO DAILY Clonazepam 1 Mg Tab 1 Mg PO BID Copaxone Inj (Glatiramer Inj) 20 Mg/Ml Syr 20 Mg SQ DAILY Review of Systems General / Constitutional: No: Fever Eyes: No: Visual changes HENT: No: Headaches Cardiovascular: Positive: Chest Pain or Discomfort Respiratory: No: Shortness of Breath Gastrointestinal: No: Abdominal Pain Genitourinary: No: Dysuria Musculoskeletal: No: Pain Skin: No Rash Neurologic: No: Weakness Psychiatric: No: Depression Endocrine: No: Polydipsia Hematologic/Lymphatic: No: Easy Bruising Physical Exam Narrative GENERAL: Well-nourished, well-developed patient. SKIN: Focused skin assessment warm/dry. HEAD: Normocephalic. EYES: No scleral icterus. No injection or drainage. NECK: Supple, trachea midline. No JVD or lymphadenopathy. CARDIOVASCULAR: Regular rate and rhythm without murmurs, gallops, or rubs. RESPIRATORY: Breath sounds equal bilaterally. No accessory muscle use. GASTROINTESTINAL: Abdomen soft, non-tender, nondistended. MUSCULOSKELETAL: No cyanosis, or edema. BACK: Nontender without obvious deformity. No CVA tenderness. Neurologic exam normal. Data Data Last Documented VS Vital Signs Date Time Temp Pulse Resp B/P (MAP) Pulse Ox O2 Delivery O2 Flow Rate FiO2 12/28/17 23:29 99 Room Air 03/10/17 22:53 98.0 88 22 110/78 (89) Orders Orders Electrocardiogram (03/10/17 23:19) Complete Blood Count With Diff (03/10/17 23:19) Comprehensive Metabolic Panel (03/10/17 23:19) Creatine Kinase (Cpk) (03/10/17 23:19) Troponin I (03/10/17 23:19) Prothrombin Time / Inr (Pt) (03/10/17 23:19) Act Partial Throm Time (Ptt) (03/10/17 23:19) Chest, Single Ap (03/10/17 23:19) Iv Access Insert/Monitor (03/10/17 23:19) Ecg Monitoring (03/10/17 23:19) Oximetry (03/10/17 23:19) Ketorolac Inj (Toradol Inj) (03/11/17 00:30) Labs Laboratory Tests Test 03/10/17 23:30 White Blood Count 6.9 TH/MM3 Red Blood Count 4.53 MIL/MM3 Hemoglobin 12.9 GM/DL Hematocrit 37.7 % Mean Corpuscular Volume 83.3 FL Mean Corpuscular Hemoglobin 28.5 PG Mean Corpuscular Hemoglobin Concent 34.2 % Red Cell Distribution Width 13.6 % Platelet Count 168 TH/MM3 Mean Platelet Volume 9.0 FL Neutrophils (%) (Auto) 57.7 % Lymphocytes (%) (Auto) 25.7 % Monocytes (%) (Auto) 12.6 % Eosinophils (%) (Auto) 3.3 % Basophils (%) (Auto) 0.7 % Neutrophils # (Auto) 4.0 TH/MM3 Lymphocytes # (Auto) 1.8 TH/MM3 Monocytes # (Auto) 0.9 TH/MM3 Eosinophils # (Auto) 0.2 TH/MM3 Basophils # (Auto) 0.0 TH/MM3 CBC Comment DIFF FINAL Differential Comment Prothrombin Time 10.3 SEC Prothromb Time International Ratio 1.0 RATIO Activated Partial Thromboplast Time 24.7 SEC Blood Urea Nitrogen 22 MG/DL Creatinine 0.55 MG/DL Random Glucose 137 MG/DL Total Protein 6.9 GM/DL Albumin 3.2 GM/DL Calcium Level 8.2 MG/DL Alkaline Phosphatase 80 U/L Aspartate Amino Transf (AST/SGOT) 44 U/L Alanine Aminotransferase (ALT/SGPT) 56 U/L Total Bilirubin 0.2 MG/DL Sodium Level 138 MEQ/L Potassium Level 3.4 MEQ/L Chloride Level 106 MEQ/L Carbon Dioxide Level 22.5 MEQ/L Anion Gap 10 MEQ/L Estimat Glomerular Filtration Rate 120 ML/MIN Total Creatine Kinase 53 U/L Troponin I LESS THAN 0.02 NG/ML MDM Medical Decision Making Medical Screen Exam Complete: Yes Emergency Medical Condition: Yes Medical Record Reviewed: Yes Interpretation(s) 23:27 PM. EKG shows sinus rhythm nonspecific ST-T wave change. Differential Diagnosis Differential diagnosis including musculoskeletal, anxiety, panic attack, angina , MA, PE, pneumothorax. Narrative Course 46-year-old female with chest pain. Review EKG and results of blood work with the patient. Patient always has low blood pressure. Otherwise patient can be discharged and follow-up with her physician at home. Toradol 30 g IV given for pain. Diagnosis Primary Impression: Atypical chest pain Patient Instructions: General Instructions Additional Instructions: Mobic as needed for pain. Follow-up with personal physician. Return if increasing chest pain or shortness of breath. Med/Other Pt SpecificInfo: Prescription(s) given Scripts Meloxicam (Mobic) 15 Mg Tab 15 MG PO DAILY for Pain, #14 TAB 0 Refills Prov: Yasir Gagnon MD 03/11/17 Disposition: 01 DISCHARGE HOME Condition: Stable Yasir Gagnon MD Mar 10, 2017 23:28
[2017-03-10 23:29] VITALS: O2SAT 99
--- NOTE | 2017-03-10 23:55 | RADRPT ---
EXAM DATE/TIME: 03/10/2017 23:26 [facility] COMPARISON: CHEST SINGLE AP, December 22, 2016, 2:40. INDICATIONS : Sternal Chest pain radiating to left side. MEDICAL HISTORY : Gastroesophageal reflux disease. Myocardial infarction. Multiple Sclerosis, TIA, A-fib SURGICAL HISTORY : Pacemaker. Tubal ligation. Appendectomy. Sonya, Hysterectomy ENCOUNTER: Initial ACUITY: 1 day PAIN SCORE: 8/10 LOCATION: Bilateral chest FINDINGS: Single AP view of the chest. Dual-lead cardiac pacemaker. Mild bilateral hazy lower lung zone opacity . The lungs are otherwise clear. Cardiomediastinal silhouette within normal limits. No evidence of pl eural effusion or pneumothorax. CONCLUSION: Mild bilateral lower lung zone hazy opacity likely representing atelectasis. Anthony Fleming MD on March 10, 2017 at 23:52 Board Certified Radiologist. This report was verified electronically.
[2017-03-11 00:08] LABS: BASOPHIL % 0.7 % (0.0-2.0); EOSINOPHIL # 0.2 TH/MM3 (0-0.4); EOSINOPHIL % 3.3 % (0.0-4.0); HEMATOCRIT 37.7 % (35.0-46.0); HEMOGLOBIN 12.9 GM/DL (11.6-15.3); LYMPH % 25.7 % (9.0-44.0); LYMPHOCYTE # 1.8 TH/MM3 (1.0-4.8); MEAN CELL VOLUME 83.3 FL (80.0-100.0); MEAN CORPUSCULAR HEMOGLOBIN 28.5 PG (27.0-34.0); MEAN CORPUSCULAR HGB CONC 34.2 % (32.0-36.0); MONO % 12.6 % (0.0-8.0); MONOCYTE # 0.9 TH/MM3 (0-0.9); NEUT % 57.7 % (16.0-70.0); PLATELET COUNT 168 TH/MM3 (150-450); RED BLOOD COUNT 4.53 MIL/MM3 (4.00-5.30); RED CELL DISTRIBUTION WIDTH 13.6 % (11.6-17.2); WHITE BLOOD COUNT 6.9 TH/MM3 (4.0-11.0)
[2017-03-11 00:27] LABS: PROTHROMBIN TIME - PATIENT 10.3 SEC (9.8-11.6)
[2017-03-11 00:30] LABS: ALT (GPT) 56 U/L (10-53)
[2017-03-11] MEDS ORDERED: KETOROLAC TROMETHAMINE 30 MG/ML (IVP) VIAL IV PUSH ONE (00:30)
[2017-03-11 00:33] LABS: ALBUMIN 3.2 GM/DL (3.4-5.0); AST (GOT) 44 U/L (15-37); BICARBONATE 22.5 MEQ/L (21.0-32.0); BLOOD UREA NITROGEN 22 MG/DL (7-18); CALCIUM 8.2 MG/DL (8.5-10.1); CHLORIDE 106 MEQ/L (98-107); CREATININE 0.55 MG/DL (0.50-1.00); GLOMERULAR FILTRATION RATE 120 ML/MIN (>89); GLUCOSE,RANDOM 137 MG/DL (74-106); SODIUM (NA) 138 MEQ/L (136-145)
[2017-03-11 00:35] LABS: ALKALINE PHOSPHATASE 80 U/L (45-117); TOTAL BILIRUBIN ADULT 0.2 MG/DL (0.2-1.0); TOTAL PROTEIN 6.9 GM/DL (6.4-8.2); TROPONIN I LESS THAN 0.02 NG/ML (0.02-0.05)
[2017-03-11] MEDS ORDERED: MOBI15TA PO (00:44)
--- NOTE | 2017-03-11 14:08 | EKG ---
Date Performed: 03/10/2017 Time Performed: 23:04:41 PTAGE: 46 years EKG: Sinus rhythm ARM LEADS REVERSED ATYPICAL ECG PREVIOUS TRACING 12/22/16 Since prior tracing, there appears to be arm lead reversal. DOCTOR: Jamaal Wagner Interpretating Date/Time 03/11/2017 14:07:38
== END 2017-03-11 01:25 | disposition home or self-care (01) ==
LOC: NEPC 22:48
DX: R07.89 Other chest pain (principal); R06.02 Shortness of breath; R42 Dizziness and giddiness; R11.0 Nausea; G35 Multiple sclerosis; K21.9 Gastro-esophageal reflux disease without esophagitis
CPT/HCPCS: 71010; 80053; 82550; 84484; 85025; 85610; 85730; 93005; 96374; 99285; J1885

== ENCOUNTER 2017-03-24 11:45 | Emergency (ER) | payer BC ==
[~2017-03-24] VITALS: Ht 170.2 cm; Wt 76.0 kg
[~2017-03-24 11:45] MED LIST changes: +MOBI15TA PO
[2017-03-24 11:59] VITALS: BP 112/72; PULSE 96; RESP 16; TEMP 99; O2SAT 97
--- NOTE | 2017-03-24 13:03 | PD ---
HPI Chief Complaint: ENT Complaint Time Seen by Provider: 12:52 Travel History International Travel<30 days: No Contact w/Intl Traveler<30days: No Traveled to known affect area: No History of Present Illness HPI Patient comes emergency Department with concerns over possible strep throat. Patient states she's had a burning sensation in the back of her throat for the past 2 days. Pain is worse with swallowing. Patient tried gargling with warm salt water gargles with minimal improvement of symptoms. Pain radiates to her left ear. Denies any fevers, nausea, vomiting, history of shortness of breath, headaches, or doing anything else for this. PFSH Past Medical History Hx Anticoagulant Therapy: Yes Anemia: Yes Arthritis: No Asthma: No Atrial Fibrillation: Yes Autoimmune Disease: Yes (MS 2007/ has undergone plasma exchange therapy) Blood Disorders: No Anxiety: Yes Depression: No Heart Rhythm Problems: No Cancer: Yes (ovarian) Cardiac Catheterization: No Cardiovascular Problems: No High Cholesterol: No Chemotherapy: No Chest Pain: No Congestive Heart Failure: No COPD: No Cerebrovascular Accident: Yes (Stroke) Diabetes: No Diminished Hearing: Yes (HEARING AIDS) Endocrine: No GERD: Yes Glaucoma: No Genitourinary: Yes (hard to void at times, only a tiny bit at a time) Headaches: Yes Hepatitis: No Hiatal Hernia: No Heparin Induced Thrombocytopen: No Hypertension: No Immune Disorder: No Implanted Vascular Access Dvce: Yes (PACEMAKER,MEDTRONIC ) Kidney Stones: No Medical other: Yes (reflux,stomach ulcers) Musculoskeletal: Yes (very weak from MS) Neurologic: Yes (MS and Seizures) Psychiatric: No Reproductive: No Respiratory: No Immunizations Current: Yes Migraines: Yes Myocardial Infarction: No Radiation Therapy: No Renal Failure: No Seizures: Yes ( A CHILD, RESOLVED) Sickle Cell Disease: No Sleep Apnea: No Thyroid Disease: No Ulcer: No Influenza Vaccination: No ?: Not Menopausal: Yes : 3 Para: 3 Miscarriage: 0 : 0 Ovarian Cysts: Yes Tubal Ligation: Yes Past Surgical History Abdominal Surgery: Yes Appendectomy: Yes Arteriovenous Shunt: No Cardiac Surgery: Yes (PACEMAKER 2011 multiple sclerosis complications, vagal nerve dysfn.) Section: Yes Cholecystectomy: Yes Coronary Artery Bypass Graft: No Ear Surgery: No Endocrine Surgery: No Eye Surgery: No Genitourinary Surgery: No Hysterectomy: Yes Insulin Pump: No Joint Replacement: No Neurologic Surgery: No Oral Surgery: No Pacemaker: Yes (UNKNOWN ) Thoracic Surgery: No Other Surgery: Yes (, REMOVAL OF GALLBLADDER) Family History Family Myocardial Infarction: Yes (mother had cabgX4, father had kisha disease per pt) Social History Alcohol Use: Yes (occ) Tobacco Use: No Substance Use: No Allergies-Medications (Allergen,Severity, Reaction): Coded Allergies: Fish Containing Products (Verified Allergy, Severe, including all shell fish causes anaphylactic, 03/24/17) Sulfa (Sulfonamide Antibiotics) (Verified Allergy, Severe, hives, 03/24/17) acetaminophen (Verified Allergy, Severe, HIVES, 03/24/17) adhesive (Verified Allergy, Severe, MAKES MY SKIN BLEED, 03/24/17) carbamazepine (Verified Allergy, Severe, cardiac arrest, 03/24/17) codeine (Verified Allergy, Severe, SEIZURE, 03/24/17) iodine (Verified Allergy, Severe, Anaphylaxis, 03/24/17) latex (Verified Allergy, Severe, HIVES, 03/24/17) meperidine (Verified Allergy, Severe, anaphylactic shock, 03/24/17) oxycodone (Verified Allergy, Severe, HIVES, 03/24/17) phenobarbital (Verified Allergy, Severe, hives, 03/24/17) phenytoin (Verified Allergy, Severe, HIVES, 03/24/17) potassium iodide (Verified Allergy, Severe, Anaphylaxis, 03/24/17) povidone-iodine (Verified Allergy, Severe, Anaphylaxis, 03/24/17) propoxyphene (Verified Allergy, Severe, SWELLING OF THE THROAT, 03/24/17) shellfish derived (Verified Allergy, Severe, Sweeling to throat, 03/24/17) sodium iodide (Verified Allergy, Severe, Anaphylaxis, 03/24/17) sodium iodide (Verified Allergy, Severe, Anaphylaxis, 03/24/17) Reported Meds & Prescriptions Reported Meds & Active Scripts Active Tessalon Perles (Benzonatate) 100 Mg Cap 200 Mg PO TID PRN Medrol Dosepak (Methylprednisolone) 4 Mg Dspk 4 Mg PO DIRECTED Per Pharmacist direction Mobic (Meloxicam) 15 Mg Tab 15 Mg PO DAILY Reported Effexor XR 24 HR (Venlafaxine HCl) 150 Mg Cap 150 Mg PO TID Promethazine (Promethazine HCl) 12.5 Mg Tab 25 Mg PO Q4H PRN Pantoprazole (Pantoprazole Sodium) 20 Mg Tab 40 Mg PO DAILY Bethanechol 10 Mg Tab 10 Mg PO Q8HR Amitiza (Lubiprostone) 24 Mcg Cap 24 Mg PO BID B-12 (Cyanocobalamin) 1,000 Mcg Subl 1,000 Mcg SL DAILY D-2000 Maximum Strength (Cholecalciferol) 2,000 Unit Tab 5,000 Units PO DAILY Midodrine 10 Mg Tab 10 Mg PO TID Lactulose Liq (Lactulose (Encephalopathy) Liq) 19 Gm/15 Ml Soln 15 Ml PO DAILY Digoxin 0.125 Mg Tab 0.125 Mg PO DAILY Clonazepam 1 Mg Tab 1 Mg PO BID Copaxone Inj (Glatiramer Inj) 20 Mg/Ml Syr 20 Mg SQ DAILY Review of Systems Except as stated in HPI: all other systems reviewed are Neg Physical Exam Narrative GENERAL: Well-developed, overly nourished, in no acute distress, and non-ill appearing. SKIN: Focused skin assessment warm and dry. HEAD: Atraumatic. Normocephalic. EYES: Pupils equal and round. EOMI. No scleral icterus. No injection or drainage. ENT: No nasal bleeding or discharge. Mucous membranes pink and moist. Tympanic membranes pearly thompson bilaterally. Posterior pharynx nonerythematous without exudate. Postnasal drip. Uvula is midline. Patient is swallowing some saliva without difficulty and speaking in full sentences easily. NECK: Trachea midline. No cervical lymphadenopathy. Supple. No nuclear rigidity. RESPIRATORY: No accessory muscle use. No respiratory distress. MUSCULOSKELETAL: No obvious deformities. No clubbing. No cyanosis. No edema. Full range of motion. NEUROLOGICAL: Awake and alert. No obvious cranial nerve deficits. Motor grossly within normal limits. Normal speech. PSYCHIATRIC: Appropriate mood and affect; insight and judgment normal. Data Data Last Documented VS Vital Signs Date Time Temp Pulse Resp B/P (MAP) Pulse Ox O2 Delivery O2 Flow Rate FiO2 03/24/17 11:59 99.0 96 16 112/72 (85) 97 Orders Orders Group A Rapid Strep Screen (03/24/17 13:00) Strep Culture (Group A) (03/24/17 13:15) Ed Discharge Order (03/24/17 13:58) MDM Medical Decision Making Medical Screen Exam Complete: Yes Emergency Medical Condition: Yes Differential Diagnosis Prior pharyngitis, strep pharyngitis, allergies, postnasal drip Narrative Course Patient denies being on any blood thinners or NSAIDs. Patient looks great, non-ill appearing. The patient is tolerating fluids and is well hydrated. Appears viral pharyngitis with viral symptom complex. No clinical evidence by history or evaluation to suspect meningitis and/or sepsis. There was no evidence to suggest peritonsillar abscess or retropharyngeal abscess. I discussed with the patient, diagnosis, plan of care and to follow up with the patients primary physician. The patient was instructed to return if the worsens in anyway, especially if not tolerating fluids, increased pain or swelling, difficulty swallowing or breathing, or as needed. The patient agreed with plan. Patient in no obvious distress upon re-evaluation. All pertinent laboratory result(s) discussed with patient. Patient was asked if they wanted to speak to my attending, which the patient did not wish to do at this time. Any questions/ concerns in reference to patient diagnosis/condition discussed and clarified prior to patient's discharge. Reinforced sheer importance of close follow up with patient's primary physician or primary care clinic. Instructed patient to return to ED immediately, if symptoms return/worsen. Patient showed understanding of above instructions. Further instructions and recommendations were detailed in discharge paperwork. Patient ambulated without difficulty out of ED at discharge. Diagnosis Primary Impression: Viral pharyngitis Patient Instructions: General Instructions, Pharyngitis (ED) Additional Instructions: Follow-up with your primary care physician in 3-5 days for reevaluation. Take all medication as prescribed. Drink plenty of non-caffeinated on alcohol fluids. Return to the emergency department if symptoms get worse. Med/Other Pt SpecificInfo: Prescription(s) given Scripts Benzonatate (Tessalon Perles) 100 Mg Cap 200 MG PO TID Y for COUGH, #30 CAP 0 Refills Prov: Indy Ro MD 03/24/17 Methylprednisolone Dosepak (Medrol Dosepak) 4 Mg Dspk 4 MG PO DIRECTED, #1 DSPK 0 Refills Per Pharmacist direction Prov: Indy Ro MD 03/24/17 Disposition: 01 DISCHARGE HOME Condition: Stable Prabhakar Merrill Mar 24, 2017 13:03
[2017-03-24] MEDS ORDERED: MEDR4PAK PO (13:58)
[2017-03-24] MEDS ORDERED: BENZ100 PO (13:58)
== END 2017-03-24 14:09 | disposition home or self-care (01) ==
LOC: PHEFT 11:45
DX: J02.8 Acute pharyngitis due to other specified organisms (principal); B97.89 Other viral agents as the cause of diseases classified elsewhere; K21.9 Gastro-esophageal reflux disease without esophagitis; G35 Multiple sclerosis
CPT/HCPCS: 87081; 87880; 99284

== ENCOUNTER 2017-04-15 02:23 | Emergency (ER) | payer BC ==
[~2017-04-15] VITALS: Ht 167.6 cm; Wt 70.0 kg
[~2017-04-15 02:23] MED LIST changes: +BENZ100 PO; -FURO1TAB62 PO; -GABA600T PO; +MEDR4PAK PO
[2017-04-15 02:28] VITALS: BP 108/70; PULSE 71; RESP 16; TEMP 98.1; O2SAT 99
[2017-04-15] MEDS ORDERED: FURO1TAB62 PO (02:45)
[2017-04-15] MEDS ORDERED: LIPI20TA PO (02:45)
[2017-04-15] MEDS ORDERED: CLON.5 PO (02:45)
[2017-04-15] MEDS ORDERED: SODIUM CHLORIDE 0.9% FLUSH 10 ML FLUSH IV FLUSH PRN (03:15)
[2017-04-15] MEDS ORDERED: KETOROLAC TROMETHAMINE 30 MG/ML (IVP) VIAL IV PUSH ONE (03:15)
--- NOTE | 2017-04-15 03:16 | PD ---
HPI Chief Complaint: Abdominal Pain Time Seen by Provider: 03:03 Travel History International Travel<30 days: No Contact w/Intl Traveler<30days: No Traveled to known affect area: No History of Present Illness HPI Patient is a 46-year-old female presents emergency department with several nonspecific symptoms, she states that she started about an hour ago with body aches all over her body and then radiated to her abdomen and epigastric area and then focalized there, she states that she has a history of MS and took an MS Contin pill prior to arrival and her symptoms are better but not completely gone, states that she has a history of a pacemaker sudden cardiac arrest history of esophagitis and food bolus impaction. She states symptoms are severe , gradually improving, location and progression as above PFSH Past Medical History Hx Anticoagulant Therapy: Yes Anemia: Yes Arthritis: No Asthma: No Atrial Fibrillation: Yes Autoimmune Disease: Yes (MS 2006/ has undergone plasma exchange therapy) Blood Disorders: No Anxiety: Yes Depression: No Heart Rhythm Problems: No Cancer: Yes (ovarian) Cardiac Catheterization: No Cardiovascular Problems: Yes (DEMAND PACER) High Cholesterol: No Chemotherapy: No Chest Pain: No Congestive Heart Failure: No COPD: No Cerebrovascular Accident: Yes Diabetes: No Diminished Hearing: Yes (HEARING AIDS, NOT PRESENT TODAY) Endocrine: No GERD: Yes Glaucoma: No Genitourinary: Yes (hard to void at times, only a tiny bit at a time) Headaches: Yes Hepatitis: No Hiatal Hernia: No Heparin Induced Thrombocytopen: No Hypertension: No Immune Disorder: No Implanted Vascular Access Dvce: Yes Kidney Stones: No Medical other: Yes (reflux,stomach ulcers) Musculoskeletal: Yes (very weak from MS) Neurologic: Yes (MS and Seizures) Psychiatric: No Reproductive: No Respiratory: No Immunizations Current: Yes Migraines: Yes Myocardial Infarction: No Radiation Therapy: No Renal Failure: No Seizures: Yes ( A CHILD, RESOLVED) Sickle Cell Disease: No Sleep Apnea: No Thyroid Disease: No Ulcer: No Influenza Vaccination: No ?: Not Menopausal: Yes : 3 Para: 3 Miscarriage: 0 : 0 Ovarian Cysts: Yes Tubal Ligation: Yes Past Surgical History Abdominal Surgery: Yes Appendectomy: Yes Arteriovenous Shunt: No Cardiac Surgery: Yes (PACEMAKER 2011 multiple sclerosis complications, vagal nerve dysfn.) Section: Yes Cholecystectomy: Yes Coronary Artery Bypass Graft: No Ear Surgery: No Endocrine Surgery: No Eye Surgery: No Genitourinary Surgery: No Hysterectomy: Yes Insulin Pump: No Joint Replacement: No Neurologic Surgery: No Oral Surgery: No Pacemaker: Yes (MEDTRONIC ) Thoracic Surgery: No Other Surgery: Yes (ESOPHAGEAL DILATION 2016) Family History Family Myocardial Infarction: Yes (mother had cabgX4, father had kisha disease per pt) Social History Alcohol Use: No Tobacco Use: No Substance Use: No Allergies-Medications (Allergen,Severity, Reaction): Coded Allergies: Fish Containing Products (Verified Allergy, Severe, including all shell fish causes anaphylactic, 04/15/17) Sulfa (Sulfonamide Antibiotics) (Verified Allergy, Severe, hives, 04/15/17) acetaminophen (Verified Allergy, Severe, HIVES, 04/15/17) adhesive (Verified Allergy, Severe, MAKES MY SKIN BLEED, 04/15/17) carbamazepine (Verified Allergy, Severe, cardiac arrest, 04/15/17) codeine (Verified Allergy, Severe, SEIZURE, 04/15/17) iodine (Verified Allergy, Severe, Anaphylaxis, 04/15/17) latex (Verified Allergy, Severe, HIVES, 04/15/17) meperidine (Verified Allergy, Severe, anaphylactic shock, 04/15/17) oxycodone (Verified Allergy, Severe, HIVES, 04/15/17) phenobarbital (Verified Allergy, Severe, hives, 04/15/17) phenytoin (Verified Allergy, Severe, HIVES, 04/15/17) potassium iodide (Verified Allergy, Severe, Anaphylaxis, 04/15/17) povidone-iodine (Verified Allergy, Severe, Anaphylaxis, 04/15/17) propoxyphene (Verified Allergy, Severe, SWELLING OF THE THROAT, 04/15/17) shellfish derived (Verified Allergy, Severe, Sweeling to throat, 04/15/17) sodium iodide (Verified Allergy, Severe, Anaphylaxis, 04/15/17) sodium iodide (Verified Allergy, Severe, Anaphylaxis, 04/15/17) Reported Meds & Prescriptions Reported Meds & Active Scripts Active Mobic (Meloxicam) 15 Mg Tab 15 Mg PO DAILY Reported Lipitor (Atorvastatin Calcium) 20 Mg Tab 20 Mg PO HS Lasix (Furosemide) 20 Mg Tab 20 Mg PO DAILY Klonopin (Clonazepam) 0.5 Mg Tab 0.5 Mg PO QID Effexor XR 24 HR (Venlafaxine HCl) 150 Mg Cap 150 Mg PO TID Promethazine (Promethazine HCl) 12.5 Mg Tab 25 Mg PO Q4H PRN Pantoprazole (Pantoprazole Sodium) 20 Mg Tab 40 Mg PO DAILY Bethanechol 10 Mg Tab 10 Mg PO Q8HR Amitiza (Lubiprostone) 24 Mcg Cap 24 Mg PO BID Midodrine 10 Mg Tab 10 Mg PO TID Lactulose Liq (Lactulose (Encephalopathy) Liq) 19 Gm/15 Ml Soln 15 Ml PO DAILY Digoxin 0.125 Mg Tab 0.125 Mg PO DAILY Copaxone Inj (Glatiramer Inj) 20 Mg/Ml Syr 20 Mg SQ DAILY Review of Systems Except as stated in HPI: all other systems reviewed are Neg Physical Exam Narrative GENERAL: WD/WN NAD SKIN: Focused skin assessment warm/dry. HEAD: Atraumatic. Normocephalic. EYES: Pupils equal and round. No scleral icterus. No injection or drainage. ENT: No nasal bleeding or discharge. Mucous membranes pink and moist. NECK: Trachea midline. No JVD. CARDIOVASCULAR: Regular rate and rhythm. No murmur appreciated. RESPIRATORY: No accessory muscle use. Clear to auscultation. Breath sounds equal bilaterally. GASTROINTESTINAL: Abdomen soft, non-tender, nondistended. Hepatic and splenic margins not palpable. MUSCULOSKELETAL: No obvious deformities. No clubbing. No cyanosis. No edema. NEUROLOGICAL: Awake and alert. No obvious cranial nerve deficits. Motor grossly within normal limits. Normal speech. PSYCHIATRIC: Appropriate mood and affect; insight and judgment normal. Data Data Last Documented VS Vital Signs Date Time Temp Pulse Resp B/P (MAP) Pulse Ox O2 Delivery O2 Flow Rate FiO2 04/15/17 05:38 04/15/17 04:09 77 18 98 Room Air 04/15/17 02:28 98.1 Orders Orders Complete Blood Count With Diff (04/15/17 03:03) Comprehensive Metabolic Panel (04/15/17 03:03) Lipase (04/15/17 03:03) Iv Access Insert/Monitor (04/15/17 03:03) Ecg Monitoring (04/15/17 03:03) Oximetry (04/15/17 03:03) Sodium Chloride 0.9% Flush (Ns Flush) (04/15/17 03:15) Troponin I (04/15/17 03:15) Electrocardiogram (04/15/17 ) Ketorolac Inj (Toradol Inj) (04/15/17 03:15) Ct Abd/Pel W/O Iv Contrast (04/15/17 ) Ed Discharge Order (04/15/17 05:16) Labs Laboratory Tests Test 04/15/17 03:08 White Blood Count 4.9 TH/MM3 Red Blood Count 4.62 MIL/MM3 Hemoglobin 13.5 GM/DL Hematocrit 37.8 % Mean Corpuscular Volume 81.8 FL Mean Corpuscular Hemoglobin 29.2 PG Mean Corpuscular Hemoglobin Concent 35.7 % Red Cell Distribution Width 12.9 % Platelet Count 167 TH/MM3 Mean Platelet Volume 9.0 FL Neutrophils (%) (Auto) 48.3 % Lymphocytes (%) (Auto) 35.6 % Monocytes (%) (Auto) 11.3 % Eosinophils (%) (Auto) 4.5 % Basophils (%) (Auto) 0.3 % Neutrophils # (Auto) 2.3 TH/MM3 Lymphocytes # (Auto) 1.7 TH/MM3 Monocytes # (Auto) 0.5 TH/MM3 Eosinophils # (Auto) 0.2 TH/MM3 Basophils # (Auto) 0.0 TH/MM3 CBC Comment DIFF FINAL Differential Comment Blood Urea Nitrogen 13 MG/DL Creatinine 0.57 MG/DL Random Glucose 99 MG/DL Total Protein 7.0 GM/DL Albumin 3.5 GM/DL Calcium Level 8.8 MG/DL Alkaline Phosphatase 88 U/L Aspartate Amino Transf (AST/SGOT) 87 U/L Alanine Aminotransferase (ALT/SGPT) 58 U/L Total Bilirubin 0.6 MG/DL Sodium Level 141 MEQ/L Potassium Level 4.2 MEQ/L Chloride Level 106 MEQ/L Carbon Dioxide Level 30.3 MEQ/L Anion Gap 5 MEQ/L Troponin I LESS THAN 0.02 NG/ML Lipase 1783 U/L MDM Medical Decision Making Medical Screen Exam Complete: Yes Emergency Medical Condition: Yes Differential Diagnosis Acute abdomen unlikely, somatoform disorders possible, ACS unlikely, AMI unlikely. Narrative Course Patient room to the emergency department, basic labs significant only for mildly elevated lipase but the patient has not had any nausea vomiting here. She appears quite comfortable at every encounter I have had with her, according to EMS she appeared quite uncomfortable in route but once she was in the ambulance her pain appeared to suddenly resolved. Her abdomen is benign, her symptoms do appear to be below the diaphragm. Patient sleeping on reassessment , she states that she still in significant pain and that whenever she comes here for her flares of pain she always gets Dilaudid. The patient has several concerns about her troponin as well as her CAT scan which was performed to rule out pancreatic mass and does not show any. She did take morphine p.o. which she is prescribed prior to arrival and states it helped her pain but not completely alleviated, she is displaying histrionic and even borderline personality traits. At this time I see no indication for further workup or opiate pain medication and she appears quite comfortable. She has requested Dilaudid multiple times and I offered her a dose of p.o. morphine which she declined. After counseling she is prepared for discharge and will follow up with her regular physician. Discussed return to ED criteria. Diagnosis Primary Impression: Elevated lipase Additional Impression: Body aches Patient Instructions: General Instructions, Pancreatitis (DC) Disposition: 01 DISCHARGE HOME Condition: Stable Alfred Estrada MD Apr 15, 2017 03:16
[2017-04-15 03:30] LABS: AUTOMATED NEUTROPHIL # 2.3 TH/MM3 (1.8-7.7); BASOPHIL % 0.3 % (0.0-2.0); EOSINOPHIL # 0.2 TH/MM3 (0-0.4); EOSINOPHIL % 4.5 % (0.0-4.0); HEMATOCRIT 37.8 % (35.0-46.0); HEMOGLOBIN 13.5 GM/DL (11.6-15.3); LYMPH % 35.6 % (9.0-44.0); LYMPHOCYTE # 1.7 TH/MM3 (1.0-4.8); MEAN CELL VOLUME 81.8 FL (80.0-100.0); MEAN CORPUSCULAR HEMOGLOBIN 29.2 PG (27.0-34.0); MEAN CORPUSCULAR HGB CONC 35.7 % (32.0-36.0); MONO % 11.3 % (0.0-8.0); MONOCYTE # 0.5 TH/MM3 (0-0.9); NEUT % 48.3 % (16.0-70.0); PLATELET COUNT 167 TH/MM3 (150-450); RED BLOOD COUNT 4.62 MIL/MM3 (4.00-5.30); RED CELL DISTRIBUTION WIDTH 12.9 % (11.6-17.2); WHITE BLOOD COUNT 4.9 TH/MM3 (4.0-11.0)
[2017-04-15 03:40] LABS: ALBUMIN 3.5 GM/DL (3.4-5.0); AST (GOT) 87 U/L (15-37); BICARBONATE 30.3 MEQ/L (21.0-32.0); BLOOD UREA NITROGEN 13 MG/DL (7-18); CALCIUM 8.8 MG/DL (8.5-10.1); CHLORIDE 106 MEQ/L (98-107); CREATININE 0.57 MG/DL (0.50-1.00); GLUCOSE,RANDOM 99 MG/DL (74-106); SODIUM (NA) 141 MEQ/L (136-145)
[2017-04-15 03:44] LABS: ALKALINE PHOSPHATASE 88 U/L (45-117); ALT (GPT) 58 U/L (10-53); TOTAL BILIRUBIN ADULT 0.6 MG/DL (0.2-1.0)
[2017-04-15 04:09] VITALS: BP 108/70; PULSE 77; RESP 18; O2SAT 98
--- NOTE | 2017-04-15 05:13 | RADRPT ---
EXAM DATE/TIME: 04/15/2017 04:54 [facility] COMPARISON: CT ABDOMEN & PELVIS W/O CONTRAST, March 22, 2015, 6:24. INDICATIONS : Epigastric abdominal pain. Elevated lipase. ORAL CONTRAST: No oral contrast ingested. RADIATION DOSE: 6.91 CTDIvol (mGy) MEDICAL HISTORY : Gastroesophageal reflux disease. Ulcers. Multiple sclerosis.Carcinoma, ovarian. SURGICAL HISTORY : Appendectomy. Cholecystectomy. Hysterectomy. Pacemaker. ENCOUNTER: Initial ACUITY: 1 day PAIN SCALE: 10/10 LOCATION: Epigastric abdomen TECHNIQUE: Volumetric scanning of the abdomen and pelvis was performed. Using automated exposure control and ad justment of the mA and/or kV according to patient size, radiation dose was kept as low as reasonably achievable to obtain optimal diagnostic quality images. DICOM format image data is available electro nically for review and comparison. FINDINGS: Atelectatic changes are noted at the lung bases. The patient is status post cholecystectomy. Kidneys, spleen, liver, pancreas within normal limits. Urinary bladder is unremarkable. The patient is status post hysterectomy. There is no evidence for bowel obstruction, free fluid or free air. The patient i s status post appendectomy. There is no adenopathy or aneurysm. Osseous structures are intact. CONCLUSION: Mild atelectatic changes at the lung bases. Abner Weathers MD on April 15, 2017 at 5:09 Board Certified Radiologist. This report was verified electronically.
--- NOTE | 2017-04-15 19:33 | EKG ---
Date Performed: 04/15/2017 Time Performed: 03:39:30 PTAGE: 46 years EK% ATRIAL PACING Left axis deviation LEFT ANTERIOR FASCICULAR BLOCK PRIOR TRACING HAD ARM LEAD REVERSAL ABNORMAL ECG PREVIOUS TRACING : 03/10/2017 23.04 DOCTOR: Anthony Louis Interpretating Date/Time 04/15/2017 19:31:10
== END 2017-04-15 05:56 | disposition home or self-care (01) ==
LOC: NEPE 02:23
DX: R74.8 Abnormal levels of other serum enzymes (principal); R52 Pain, unspecified; R94.31 Abnormal electrocardiogram [ECG] [EKG]; D64.9 Anemia, unspecified; I48.91 Unspecified atrial fibrillation; G35 Multiple sclerosis; Z85.43 Personal history of malignant neoplasm of ovary; Z95.0 Presence of cardiac pacemaker; Z79.01 Long term (current) use of anticoagulants; Z86.73 Personal history of transient ischemic attack (TIA), and cerebral infarction without residual deficits; Z88.2 Allergy status to sulfonamides; Z88.5 Allergy status to narcotic agent; Z88.8 Allergy status to other drugs, medicaments and biological substances; Z88.6 Allergy status to analgesic agent; Z91.040 Latex allergy status; Z91.013 Allergy to seafood
CPT/HCPCS: 74176; 80053; 83690; 84484; 85025; 93005; 96374; 99285; J1885

== ENCOUNTER 2017-06-15 12:12 | Emergency (ER) | payer BC ==
[~2017-06-15] VITALS: Ht 170.2 cm; Wt 70.0 kg
[~2017-06-15 12:12] MED LIST changes: -BENZ100 PO; +CLON.5 PO; -CLON1TAB PO; -CYAN100025 SL; -D-20TAB3 PO; +FURO1TAB62 PO; +LIPI20TA PO; -MEDR4PAK PO
[2017-06-15 12:24] VITALS: BP 114/78; PULSE 81; RESP 18; TEMP 98; O2SAT 100
--- NOTE | 2017-06-15 12:44 | PD ---
HPI Chief Complaint: Headache Time Seen by Provider: 12:39 Travel History International Travel<30 days: No Contact w/Intl Traveler<30days: No Traveled to known affect area: No History of Present Illness HPI Patient comes in stating that she has had a accident fall and she was evaluated at another facility and [place] where she was told that she had fracture left ankle, a concussion and right knee injury. Patient comes in for a second opinion because she does not believe a word of what was said to her. Currently the pain patient comes in complaining of pain to her head described as generalized 3 out of 10, feels like a band squeezing. The right knee pain is nonradiating more sharp and worse with ambulation when it becomes rated 8 out of 10. Her left ankle pain is sharp nonradiating 3 out of 10 worsens to 5 out of 10 with weightbearing walking activity. This occurred at least 2 days ago. Patient denies any alleviating factors. And over the last 2 days has been sitting in a car passenger seat been driven down to [place] Per report patient has allergies to Tylenol hives, sulfa hives , Tegretol caused cardiac arrest, codeine, seizures, iodine caused anaphylaxis, latex caused hives, Demerol caused anaphylactic shock oxycodone cause hives, Dilantin causes hives, phenobarbital causes hives, potassium cause anaphylaxis Past medical history significant for ocular problems due to multiple sclerosis CVA, seizures, multiple sclerosis, pacemaker, atrial fibrillation, gallbladder disease, with cholecystectomy, appendectomy, GERD, endometriosis, ovarian cyst, status post hysterectomy, anemia, esophageal dilation in 2017, [facility] Past Medical History Hx Anticoagulant Therapy: Yes Anemia: Yes Arthritis: No Asthma: No Atrial Fibrillation: Yes Autoimmune Disease: Yes (MS 2006/ has undergone plasma exchange therapy) Blood Disorders: No Anxiety: Yes Depression: No Heart Rhythm Problems: No Cancer: Yes (ovarian) Cardiac Catheterization: No Cardiovascular Problems: Yes (DEMAND PACER) High Cholesterol: No Chemotherapy: No Chest Pain: No Congestive Heart Failure: No COPD: No Cerebrovascular Accident: Yes Diabetes: No Diminished Hearing: Yes (HEARING AIDS, NOT PRESENT TODAY) Endocrine: No GERD: Yes Glaucoma: No Genitourinary: Yes (hard to void at times, only a tiny bit at a time) Headaches: Yes Hepatitis: No Hiatal Hernia: No Heparin Induced Thrombocytopen: No Hypertension: No Immune Disorder: No Implanted Vascular Access Dvce: Yes Kidney Stones: No Musculoskeletal: Yes (very weak from MS) Neurologic: Yes (MS and Seizures) Psychiatric: No Reproductive: No Respiratory: No Immunizations Current: Yes Migraines: Yes Myocardial Infarction: No Radiation Therapy: No Renal Failure: No Seizures: Yes ( A CHILD, RESOLVED) Sickle Cell Disease: No Sleep Apnea: No Thyroid Disease: No Ulcer: No Menopausal: Yes : 3 Para: 3 Miscarriage: 0 : 0 Ovarian Cysts: Yes Tubal Ligation: Yes Past Surgical History Abdominal Surgery: Yes Appendectomy: Yes Arteriovenous Shunt: No Cardiac Surgery: Yes (PACEMAKER 2010 multiple sclerosis complications, vagal nerve dysfn.) Section: Yes Cholecystectomy: Yes Coronary Artery Bypass Graft: No Ear Surgery: No Endocrine Surgery: No Eye Surgery: No Genitourinary Surgery: No Hysterectomy: Yes Insulin Pump: No Joint Replacement: No Neurologic Surgery: No Oral Surgery: No Pacemaker: Yes ([employer] ) Thoracic Surgery: No Other Surgery: Yes (ESOPHAGEAL DILATION 2016) Social History Alcohol Use: No Tobacco Use: No Substance Use: No Allergies-Medications (Allergen,Severity, Reaction): Coded Allergies: Fish Containing Products (Verified Allergy, Severe, including all shell fish causes anaphylactic, 06/15/17) Sulfa (Sulfonamide Antibiotics) (Verified Allergy, Severe, hives, 06/15/17) acetaminophen (Verified Allergy, Severe, HIVES, 06/15/17) adhesive (Verified Allergy, Severe, MAKES MY SKIN BLEED, 06/15/17) carbamazepine (Verified Allergy, Severe, cardiac arrest, 06/15/17) codeine (Verified Allergy, Severe, SEIZURE, 06/15/17) iodine (Verified Allergy, Severe, Anaphylaxis, 06/15/17) latex (Verified Allergy, Severe, HIVES, 06/15/17) meperidine (Verified Allergy, Severe, anaphylactic shock, 06/15/17) oxycodone (Verified Allergy, Severe, HIVES, 06/15/17) phenobarbital (Verified Allergy, Severe, hives, 06/15/17) phenytoin (Verified Allergy, Severe, HIVES, 06/15/17) potassium iodide (Verified Allergy, Severe, Anaphylaxis, 06/15/17) povidone-iodine (Verified Allergy, Severe, Anaphylaxis, 06/15/17) propoxyphene (Verified Allergy, Severe, SWELLING OF THE THROAT, 06/15/17) shellfish derived (Verified Allergy, Severe, Sweeling to throat, 06/15/17) sodium iodide (Verified Allergy, Severe, Anaphylaxis, 06/15/17) sodium iodide (Verified Allergy, Severe, Anaphylaxis, 06/15/17) Reported Meds & Prescriptions Reported Meds & Active Scripts Active Meclizine (Meclizine HCl) 25 Mg Tab 25 Mg PO TID PRN 5 Days Ultram (Tramadol HCl) 50 Mg Tab 50 Mg PO Q8H PRN Meloxicam 7.5 Mg Tab 7.5 Mg PO DAILY Mobic (Meloxicam) 15 Mg Tab 15 Mg PO DAILY Reported Lipitor (Atorvastatin Calcium) 20 Mg Tab 20 Mg PO HS Lasix (Furosemide) 20 Mg Tab 20 Mg PO DAILY Klonopin (Clonazepam) 0.5 Mg Tab 0.5 Mg PO QID Effexor XR 24 HR (Venlafaxine HCl) 150 Mg Cap 150 Mg PO TID Promethazine (Promethazine HCl) 12.5 Mg Tab 25 Mg PO Q4H PRN Pantoprazole (Pantoprazole Sodium) 20 Mg Tab 40 Mg PO DAILY Bethanechol 10 Mg Tab 10 Mg PO Q8HR Amitiza (Lubiprostone) 24 Mcg Cap 24 Mg PO BID Midodrine 10 Mg Tab 10 Mg PO TID Lactulose Liq (Lactulose (Encephalopathy) Liq) 19 Gm/15 Ml Soln 15 Ml PO DAILY Digoxin 0.125 Mg Tab 0.125 Mg PO DAILY Copaxone Inj (Glatiramer Inj) 20 Mg/Ml Syr 20 Mg SQ DAILY Physical Exam Narrative GENERAL: SKIN: Warm and dry. HEAD: Atraumatic. Normocephalic. EYES: Pupils equal and round. No scleral icterus. No injection or drainage. ENT: No nasal bleeding or discharge. Mucous membranes pink and moist. NECK: Trachea midline. No JVD. CARDIOVASCULAR: Regular rate and rhythm. RESPIRATORY: No accessory muscle use. Clear to auscultation. Breath sounds equal bilaterally. GASTROINTESTINAL: Abdomen soft, non-tender, nondistended MUSCULOSKELETAL: Extremities without clubbing, cyanosis, or edema. No obvious deformities.moderate echymosis to left ankle lateral malleolar and dorsum of foot region, right knee edema and pain with active rom, suprapatellar region with greatest edema. NEUROLOGICAL: Awake and alert. No obvious cranial nerve deficits. Motor grossly within normal limits. Five out of 5 muscle strength in the arms and legs. Normal speech. PSYCHIATRIC: Appropriate mood and affect; insight and judgment normal. Data Data Last Documented VS Orders Orders Us Leg Venous Doppler (06/15/17 12:54) Ct Knee W/O Contrast (06/15/17 ) Ct Brain W/O Iv Contrast(Rout) (06/15/17 ) Ondansetron Inj (Zofran Inj) (06/15/17 13:00) Sodium Chlor 0.9% 1000 Ml Inj (Ns 1000 M (06/15/17 12:54) Hydromorphone Pf Inj (Dilaudid Pf Inj) (06/15/17 13:00) Methylprednisolone So Succ Inj (Solumedr (06/15/17 13:00) Ankle, Complete ([id number]) (06/15/17 12:57) Hydromorphone Pf Inj (Dilaudid Pf Inj) (06/15/17 13:07) ^ Knee Immobilizer (06/15/17 15:26) Crutches (06/15/17 15:26) Ed Discharge Order (06/15/17 15:39) Promethazine Inj (Phenergan Inj) (06/15/17 16:30) MDM Medical Decision Making Medical Screen Exam Complete: Yes Emergency Medical Condition: Yes Medical Record Reviewed: Yes Differential Diagnosis dvt v ankle fx v ankle dislocation v knee sprain v knee fx v knee subluxation v tension torres v ich Narrative Course Ankle x-ray as read by the radiologist states that the bony structures are in normal alignment, ankle mortise is intact, no radiopaque foreign bodies are seen , and bone bony mineralization is normal. Lower extremity ultrasound on the right is negative for any DVT Head CT read by radiologist as no acute findings in the brain CT right knee is negative multiplanar CT of the right knee as per radiology report Diagnosis Primary Impression: Right knee effusion Additional Impression: Moderate left ankle sprain Qualified Codes: S93.402D - Sprain of unspecified ligament of left ankle, subsequent encounter Referrals: Zhang Meeks MD to further evaluate your right knee pain and rule out ligamentous injury. Patient Instructions: General Instructions Scripts Meclizine (Meclizine) 25 Mg Tab 25 MG PO TID Y for VERTIGO for 5 Days, #15 TAB 0 Refills Prov: Aiden Saleh MD 06/15/17 Tramadol (Ultram) 50 Mg Tab 50 MG PO Q8H Y for PAIN, #9 TAB 0 Refills Prov: Aiden Saleh MD 06/15/17 Meloxicam (Meloxicam) 7.5 Mg Tab 7.5 MG PO DAILY for Arthritis Pain, #15 TAB 0 Refills Prov: Aiden Saleh MD 06/15/17 Disposition: 01 DISCHARGE HOME Condition: Stable Aiden Saleh MD Jun 15, 2017 12:44
[2017-06-15] MEDS ORDERED: SODIUM CHLOR 0.9% 1000 ML INJ 1,000 ML IV SCH (12:54)
[2017-06-15 12:56] VITALS: BP 108/72; PULSE 81; RESP 16; O2SAT 99
[2017-06-15] MEDS ORDERED: methylPREDNISolone SOD SUCC 125 MG/2 ML VIAL IV PUSH ONE (13:00)
[2017-06-15] MEDS ORDERED: HYDROmorphone HCL PF 1 MG/ML VIAL IVS ONE (13:00)
[2017-06-15] MEDS ORDERED: ONDANSETRON HCL 4 MG/2 ML VIAL IVP ONE (13:00)
[2017-06-15] MEDS ORDERED: HYDROmorphone HCL PF 2 MG/ML VIAL ONE (13:07)
--- NOTE | 2017-06-15 13:44 | RADRPT ---
EXAM DATE/TIME: 06/15/2017 13:09 [facility] COMPARISON: No previous studies available for comparison. INDICATIONS : Left ankle pain due to fall. MEDICAL HISTORY : Gastroesophageal reflux disease. Ulcers. Multiple sclerosis.Carcinoma, ovarian. SURGICAL HISTORY : Appendectomy. Cholecystectomy. Hysterectomy. Pacemaker. ENCOUNTER: Initial ACUITY: 1 day PAIN SCORE: 8/10 LOCATION: Left Ankle. FINDINGS: Three view exam was performed of the left ankle. The bony structures are in normal alignment. No ev idence of fracture, dislocation, or soft tissue swelling. The ankle mortise is intact. No radiopaqu e foreign bodies are seen. Bony mineralization is normal. CONCLUSION: No evidence of recent bony injury. Eyal Kendall MD on June 15, 2017 at 13:42 Board Certified Radiologist. This report was verified electronically.
--- NOTE | 2017-06-15 14:17 | RADRPT ---
EXAM DATE/TIME: 06/15/2017 14:02 [facility] COMPARISON: CT BRAIN W/O CONTRAST, January 24, 2017, 3:14. INDICATIONS : Frequent falls, right eye blurred vision and right sided headache RADIATION DOSE: 45.69 CTDIvol (mGy) MEDICAL HISTORY : Multple sclerosis. Seizures. Cerebrovascular disease. SURGICAL HISTORY : Hysterectomy. ENCOUNTER: Initial ACUITY: 1 day PAIN SCALE: 10/10 LOCATION: Right cranial TECHNIQUE: Multiple contiguous axial images were obtained of the head. Using automated exposure control and adj ustment of the mA and/or kV according to patient size, radiation dose was kept as low as reasonably a chievable to obtain optimal diagnostic quality images. DICOM format image data is available electro nically for review and comparison. FINDINGS: CEREBRUM: The ventricles are normal for age. No evidence of midline shift, mass lesion, hemorrhage or acute in farction. No extra-axial fluid collections are seen. POSTERIOR FOSSA: The cerebellum and brainstem are intact. The 4th ventricle is midline. The cerebellopontine angle i s unremarkable. EXTRACRANIAL: The visualized portion of the orbits is intact. SKULL: The calvaria is intact. No evidence of skull fracture. CONCLUSION: 1. No acute findings in the brain. Eyal Kendall MD on June 15, 2017 at 14:14 Board Certified Radiologist. This report was verified electronically.
--- NOTE | 2017-06-15 14:19 | RADRPT ---
EXAM DATE/TIME: 06/15/2017 14:32 [facility] COMPARISON: No previous studies available for comparison. INDICATIONS : Right leg swelling. MEDICAL HISTORY : Stroke. Gastroesophageal reflux disease. Hearing loss. Seizures. Dizziness. Anticoagulant therapy . Atrial fibrillation. Ovarian cysts. Renal disease. Anxiety. Anemia. MRSA. SURGICAL HISTORY : Pacemaker. Appendectomy. Cholecystectomy. Hysterectomy. Tubal ligation. ENCOUNTER: Initial ACUITY: 1 day PAIN SCORE: 4/10 LOCATION: Right leg. TECHNIQUE: Venous ultrasound of the leg was performed from the inguinal ligament to the proximal calf. Real-nati e, color Doppler and spectral tracing, compression and augmentation techniques were used. FINDINGS: There is normal compressibility of the deep venous system from the inguinal region to the proximal ca lf. No echogenic clot is seen in the lumen of the common femoral, femoral, popliteal, and posterior tibial veins. There is a normal response of the venous system to proximal and distal augmentation an d respiration. CONCLUSION: 1. The study is negative for deep venous thrombosis right lower extremity. Eyal Kendall MD on June 15, 2017 at 14:16 Board Certified Radiologist. This report was verified electronically.
--- NOTE | 2017-06-15 14:21 | RADRPT ---
EXAM DATE/TIME: 06/15/2017 14:05 [facility] COMPARISON: No previous studies available for comparison. INDICATIONS : Fall, right knee swelling RADIATION DOSE: 7.29 CTDIvol (mGy) MEDICAL HISTORY : Multple sclerosis. Seizures. Cerebrovascular disease. SURGICAL HISTORY : Hysterectomy. ENCOUNTER: Initial ACUITY: 1 day PAIN SCALE: 5/10 LOCATION: Right knee TECHNIQUE: Volumetric scanning of the knee was performed. Using automated exposure control and adjustment of th e mA and/or kV according to patient size, radiation dose was kept as low as reasonably achievable to obtain optimal diagnostic quality images. DICOM format image data is available electronically for re view and comparison. FINDINGS: BONES: No evidence of fracture. Alignment is within normal limits. JOINTS: No evidence of joint narrowing or effusion. SOFT TISSUES: Muscles, tendons and neurovascular structures are grossly unremarkable. No evidence of mass, organize d fluid collection, or foreign body. CONCLUSION: Negative multiplanar CT of the right knee. Eyal Kendall MD on June 15, 2017 at 14:17 Board Certified Radiologist. This report was verified electronically.
[2017-06-15] MEDS ORDERED: MELO7.5T27 PO (15:23)
[2017-06-15] MEDS ORDERED: TRAM50 PO (15:29)
[2017-06-15] MEDS ORDERED: MECL-62 PO (15:39)
[2017-06-15] MEDS ORDERED: PROMETHAZINE INJ 25 MG/ML VIAL IM ONE (16:30)
== END 2017-06-15 16:50 | disposition home or self-care (01) ==
LOC: NEPE 12:12
DX: M25.461 Effusion, right knee (principal); S93.402D Sprain of unspecified ligament of left ankle, subsequent encounter; X58.XXXD Exposure to other specified factors, subsequent encounter; M79.89 Other specified soft tissue disorders; R51 Headache
CPT/HCPCS: 70450; 73610; 73700; 93971; 96361; 96374; 96375; 99285; E0113; J1170; J2405; J2930; J7030

== ENCOUNTER 2017-10-11 21:03 | Observation (INO) ==
[2017-10-12] MEDS ORDERED: HYDROmorphone PF Inj 2 MG/ML Vial IV.PUSH ONE ×2 (00:13→01:58)
--- NOTE | 2017-10-12 00:44 | XR ---
EXAM DATE: 10/12/2017 12:39 AM EDT AGE/SEX: 46 years / Female INDICATIONS: Chest pain and shortness of breath. CLINICAL DATA: This is the patient's initial encounter. Patient reports that signs and symptoms have been present for 2 days and indicates a pain score of 3/10. MEDICAL/SURGICAL HISTORY: . Gastroesophageal reflux disease. Myocardial infarction. Multiple Sc lerosis, TIA, A-fib. . Pacemaker. Tubal ligation. Appendectomy. Sonya, Hysterectomy. COMPARISON: [facility] [place], CHEST SINGLE AP, 03/10/2017. . FINDINGS: A single AP view of the chest demonstrates the lungs to be symmetrically aerated without evidence of mass, infiltrate or effusion. The cardiomediastinal contours are unremarkable. Osseous structures a re intact. The right subclavian A-V sequential transvenous pacer remains in place. CONCLUSION: Stable appearance with no acute cardiopulmonary disease. Electronically signed by: Ming Miner MD 10/12/2017 12:43 AM EDT
[2017-10-12 00:53] LABS: Baso # (Auto) 0.1 th/mm3 (0.0-0.2); Baso % (Auto) 2.2 % (0.0-2.0); Eos # (Auto) 0.1 th/mm3 (0.0-0.4); Eos % (Auto) 1.5 % (0.0-4.0); Hematocrit 39.3 % (35.0-46.0); Hemoglobin 13.3 gm/dL (11.6-15.3); Lymph # (Auto) 1.4 th/mm3 (1.0-4.8); Lymph % (Auto) 27.8 % (9.0-44.0); Mean Corpuscular HGB Conc 33.8 % (32.0-36.0); Mean Corpuscular Hemoglobin 27.7 pg (27.0-34.0); Mean Corpuscular Volume 81.9 fL (80.0-100.0); Mean Platelet Volume 8.6 fL (7.0-11.0); Mono # (Auto) 0.7 th/mm3 (0.0-0.9); Mono % (Auto) 14.1 % (0.0-8.0); Neut # (Auto) 2.8 th/mm3 (1.8-7.7); Neut % (Auto) 54.4 % (16.0-70.0); Platelet Count 127 th/mm3 (150-450); Red Cell Distribution Width 12.8 % (11.6-17.2); White Blood Count 5.2 th/mm3 (4.0-11.0)
[2017-10-12 01:05] LABS: Activated Partial Thrombo Time 20.1 sec (24.3-30.1)
[2017-10-12 01:12] LABS: D-Dimer 2.58 mg/L FEU (0.00-0.50)
[2017-10-12 01:15] LABS: Alanine Aminotransferase 466 U/L (10-53); Albumin 3.1 g/dL (3.4-5.0); Alkaline Phosphatase 96 U/L (45-117); Anion Gap 6 meq/L (5-15); Aspartate Aminotransferase 403 U/L (15-37); Blood Urea Nitrogen 30 mg/dL (7-18); Calcium 7.9 mg/dL (8.5-10.1); Carbon Dioxide 32.3 meq/L (21.0-32.0); Chloride 107 meq/L (98-107); Glomerular Filtration Rate Greater Than 89 mL/min (>89); Glucose,Random 89 mg/dL (74-106); Potassium 3.5 meq/L (3.5-5.1); Sodium 145 meq/L (136-145); Total Protein 5.7 g/dL (6.4-8.2)
[2017-10-12 01:39] LABS: Eosinophils 2 % (0-4); Lymphocytes 28 % (9-44); Metamyelocytes 2 % (0-1); Monocytes 13 % (0-8); Myelocytes 4 % (0-0); Ovalocytes 1+; Platelet Morphology Normal (Normal); Promyelocyte 2 % (0-0)
--- NOTE | 2017-10-12 03:39 | CT ---
EXAM DATE: 10/12/2017 3:29 AM EDT AGE/SEX: 46 years / Female INDICATIONS: Upper abdominal pain. CLINICAL DATA: This is the patient's initial encounter. Patient reports that signs and symptoms have been present for 1 day and indicates a pain score of 5/10. MEDICAL/SURGICAL HISTORY: Multiple sclerosis. Rheumatoid arthritis. Appendectomy. Cholecystec eneida. Hysterectomy. Pacemaker. RADIATION DOSE: 6.77 CTDI (mGy) COMPARISON: [facility] [place] ABDOMEN & PELVIS W/O CONTRAST, 04/15/2017. . TECHNIQUE: Multiple contiguous axial images were obtained through the abdomen. Images were obtained using multiple row detector helical technique. Using automated exposure control and adjustment of the mA and/or kV according to patient size, radiation dose was kept as low as reasonably achievable to o btain optimal diagnostic quality images. DICOM format image data is available electronically for rev iew and comparison. FINDINGS: Lower Lungs: There is minimal pleural fluid bilaterally. Transvenous pacer is noted in place. Liver: The liver has a homogeneous density without space-occupying lesion. There is no dilation of th e biliary tree. The patient is status post cholecystectomy. Spleen: Homogeneous density without enlargement. Pancreas: Unremarkable without mass or calcification. Kidneys: Normal in size and shape. No evidence of mass or hydronephrosis. Adrenal Glands: Unremarkable. Aorta: The aorta and proximal iliac vessels are grossly unremarkable without aneurysmal dilation. Bowel/Mesentery: No oral contrast was given limiting the sensitivity the exam. There are multiple erasmo cified phleboliths in the pelvis. The bowel loops are grossly unremarkable. The cecum and sigmoid col on have a normal configuration. Abdominal Wall: Intact. Retroperitoneum: No evidence of adenopathy in the retrocrural, para-aortic, or deep pelvic regions. Bladder: Contours are smooth. Reproductive Organs: No abnormal masses or calcifications seen. Inguinal: The inguinal region is unremarkable without evidence of adenopathy. Bony Structures: Unremarkable. CONCLUSION: 1. Minimal pleural fluid is noted bilaterally. 2. Status post cholecystectomy. 3. Unremarkable appearing bowel gas pattern. 4. The pancreas is grossly unremarkable in appearance on this noncontrast exam. Electronically signed by: Ming Miner MD 10/12/2017 3:37 AM EDT
[2017-10-12] MEDS ORDERED: Aluminum/Magnesium/Simethacone Susp 30 ML UDC PO ONE (03:48)
--- NOTE | 2017-10-12 04:45 | NM ---
EXAM DATE: 10/12/2017 4:11 AM EDT AGE/SEX: 46 years / Female INDICATIONS: Dyspnea. CLINICAL DATA: This is the patient's initial encounter. Patient reports that signs and symptoms have been present for 1 day and indicates a pain score of 0/10. MEDICAL/SURGICAL HISTORY: Multiple sclerosis. Hypertension. Tubal ligation. Pacemaker. Sonya cystectomy. COMPARISON: [facility], CHEST 1V SINGLE AP, 10/12/2017. . DOSE: 1.1 mCi Tc99m DTPA aerosol 8.5 mCi Tc99m MAA IV TECHNIQUE: Following five minutes of tidal breathing of DTPA aerosol, planar images of the lungs wer e performed in eight projections. The patient was then injected with MAA, and eight-view perfusion s can was performed. FINDINGS: There is a homogeneous pattern of aerosol delivery to the periphery of both lungs. No focal ventilat ory defects are seen. The perfusion lung scan demonstrates a homogenous pattern of uptake in both lungs. No segmental or s ubsegmental defects are seen. CONCLUSION: 1. Low probability for pulmonary embolism. Electronically signed by: Ming Miner MD 10/12/2017 4:44 AM EDT
[2017-10-12] MEDS ORDERED: MethylPREDNISolone Sod Succinate Inj 125 MG/2 ML Vial IV.PUSH ONE (04:59)
--- NOTE | 2017-10-12 04:59 | ED ---
HPI General Chief complaint: Medical Clearance Stated complaint: Resp Time Seen by Provider: 10/11/17 23:29 History of Present Illness HPI narrative: Patient is a 46-year-old female presents emergency department for "MS flare". Patient states symptoms been going on for the past few days, gradually worsening. She states her symptoms are weakness in all 4 extremities and core associated with some pain and achiness in all 4 extremities as well. Patient's history is complicated and she states that last month she had a cardiac arrest following an endoscopy for esophageal dilation she apparently has some esophageal dysmotility she also has a pacemaker being extubated arrest and had to have chest compressions done on her and ultimately admitted the ICU [facility] and is now having some chest achiness as well as some cough and some mild blood-tinged sputum. She states his been taking Dilaudid 2 mg "eats away at her stomach". Patient states that IM Dilaudid has a similar effect but IV Dilaudid is okay. No headaches no blurred vision. Related Data Home Medications Medication Instructions Recorded Confirmed clonazepam 2 mg PO HS 10/11/17 10/11/17 digoxin 0.125 mg PO DAILY 10/11/17 10/11/17 diphenhydramine HCl [Benadryl] 25 mg PO Q4-6H PRN 10/11/17 10/11/17 docusate sodium [Stool Softener] 100 mg PO DAILY 10/11/17 10/11/17 furosemide [Lasix] 20 mg PO DAILY PRN 10/11/17 10/11/17 glatiramer [Copaxone] 20 mg SUB-Q DAILY 10/11/17 10/11/17 hydromorphone 2 mg PO Q4H PRN 10/11/17 10/11/17 lactulose 20 g PO DAILY 10/11/17 10/11/17 midodrine 5 mg PO TID 10/11/17 10/11/17 polyethylene glycol 3350 [Miralax] 1.25 g/kg PO DAILY 10/11/17 10/11/17 promethazine 25 mg PO Q4HR PRN 10/11/17 10/11/17 venlafaxine [Effexor XR] 150 mg PO DAILY 10/11/17 10/11/17 Allergies Allergy/AdvReac Type Severity Reaction Status Date / Time adhesive Allergy Severe MAKES MY Verified 07/31/18 21:56 SKIN BLEED carbamazepine Allergy Severe cardiac Verified 10/11/17 21:56 arrest codeine Allergy Severe SEIZURE Verified 10/11/17 21:56 Fish Containing Products Allergy Severe including Verified 10/11/17 21:56 all shell fish causes anaphylactic iodine Allergy Severe Anaphylaxis Verified 10/11/17 21:56 latex Allergy Severe HIVES Verified 10/11/17 21:56 meperidine Allergy Severe anaphylactic Verified 10/11/17 21:56 shock oxycodone Allergy Severe HIVES Verified 10/11/17 21:56 phenobarbital Allergy Severe hives Verified 10/11/17 21:56 phenytoin Allergy Severe HIVES Verified 10/11/17 21:56 potassium iodide Allergy Severe Anaphylaxis Verified 10/11/17 21:56 povidone-iodine Allergy Severe Anaphylaxis Verified 10/11/17 21:56 propoxyphene Allergy Severe SWELLING Verified 10/11/17 21:56 OF THE THROAT shellfish derived Allergy Severe Sweeling Verified 10/11/17 21:56 to throat Sulfa (Sulfonamide Allergy Severe hives Verified 10/11/17 21:56 Antibiotics) Review of Systems Except as stated in HPI: all other systems reviewed are negative [facility] Medical History Medical History HTN (hypertension) (Acute) History of hysterectomy (Acute) Hypothyroidism (Acute) Multiple sclerosis (Acute) Pacemaker (Acute) Rheumatoid arthritis (Acute) Surgical History Surgical History H/O laparoscopy (Acute) History of cholecystectomy (Acute) History of esophagogastroduodenoscopy (EGD) (Acute) Hx of appendectomy (Acute) Social History Social History Substance History: No History of Abuse Second Hand Smoke Exposure: No Smoking Status: Never smoker How Often Do You Have a Drink Containing Alcohol: Never Recent Travel in [facility] within the Last 8 Weeks: No Recent Out of Country Travel within the Last 8 Weeks: No Immunization History Tetanus Immunization: <5 Years Hx Influenza Vaccine This Season: No Exam Narrative Exam Narrative: GENERAL: Well-developed well-nourished, no obvious distress. SKIN: Focused skin assessment warm/dry. HEAD: Atraumatic. Normocephalic. EYES: Pupils equal and round. No scleral icterus. No injection or drainage. ENT: No nasal bleeding or discharge. Mucous membranes pink and moist. NECK: Trachea midline. No JVD. CARDIOVASCULAR: Regular rate and rhythm. No murmur appreciated. RESPIRATORY: No accessory muscle use. Clear to auscultation. Breath sounds equal bilaterally. GASTROINTESTINAL: Abdomen soft, non-tender, nondistended. Hepatic and splenic margins not palpable. MUSCULOSKELETAL: No obvious deformities. No clubbing. No cyanosis. No edema. NEUROLOGICAL: Awake and alert. Cranial nerves II through XII grossly intact and nonfocal, patient is globally weak but has equal strength bilaterally in all 4 extremities. Reports weakness and decreased sensation to light touch in all 4 extremities. PSYCHIATRIC: Appropriate mood and affect; insight and judgment normal. Course Initial Documented Vital Signs Temperature 98.7 F 10/11/17 21:57 Pulse Rate 101 H 10/11/17 21:57 Respiratory Rate 20 10/11/17 21:57 Blood Pressure 134/78 10/11/17 21:57 Pulse Oximetry 98 10/11/17 21:57 Last Documented Vital Signs Temperature 98.6 F 10/12/17 05:14 Pulse Rate 72 10/12/17 07:20 Respiratory Rate 14 10/12/17 07:20 Blood Pressure 120/78 10/12/17 07:20 Pulse Oximetry 96 10/12/17 07:20 Medical Decision Making MDM Narrative Medical decision making narrative: Patient room to the emergency department, fairly complete workup ensues, CT abdomen pelvis performed this patient is new transaminitis, no obvious acute pathology identified. Chest x-ray negative, VQ scan also negative. Patient given Solu-Medrol, Dilaudid 2 doses. She then began complaining of epigastric abdominal pain and states that the Dilaudid is causing stomach upset and a GI cocktail was ordered, she states that the pain then migrated into her back now and she thought she needed more Dilaudid. Having excluded emergent cause of her pain at this time I do not think that further doses of Dilaudid are indicated. This was explained to the patient, after an extensive conversation with her we have agreed that observation dose of IV Solu-Medrol and consultation with neurology is warranted. Patient does not currently have a neurologist this is her her neurologist retired. This was discussed with Dr. Alva who is agreeable. Differential Diagnosis Differential Diagnosis: PE, pneumonia, liver laceration, transaminitis, cirrhosis MS exacerbation Lab Data Result diagrams: 10/12/17 00:20 10/12/17 00:20 Lab Results 10/12/17 10/12/17 10/12/17 Range/Units 00:20 00:20 00:20 WBC 5.2 (4.0-11.0) th/mm3 RBC 4.80 (4.00-5.30) mil/mm3 Hgb 13.3 (11.6-15.3) gm/dL Hct 39.3 (35.0-46.0) % MCV 81.9 (80.0-100.0) fL MCH 27.7 (27.0-34.0) pg MCHC 33.8 (32.0-36.0) % RDW 12.8 (11.6-17.2) % Plt Count 127 L (150-450) th/mm3 MPV 8.6 (7.0-11.0) fL Prelim Diff (Auto) Slide review pending Neut % (Auto) 54.4 (16.0-70.0) % Lymph % (Auto) 27.8 (9.0-44.0) % [place] % (Auto) 14.1 H (0.0-8.0) % Eos % (Auto) 1.5 (0.0-4.0) % Baso % (Auto) 2.2 H (0.0-2.0) % Neut # (Auto) 2.8 (1.8-7.7) th/mm3 Lymph # (Auto) 1.4 (1.0-4.8) th/mm3 [place] # (Auto) 0.7 (0.0-0.9) th/mm3 Eos # (Auto) 0.1 (0.0-0.4) th/mm3 Baso # (Auto) 0.1 (0.0-0.2) th/mm3 WBC Differential Manual diff final Seg Neuts % (Manual) 49 (16-70) % Lymphocytes % (Manual) 28 (9-44) % Monocytes % (Manual) 13 H (0-8) % Eosinophils % (Manual) 2 (0-4) % Metamyelocytes % (Man) 2 H (0-1) % Myelocytes % (Man) 4 H (0-0) % Promyelocytes % (Man) 2 H (0-0) % Abs Neuts (Manual) 3.0 (1.8-7.7) th/mm3 Differential Comment . Platelet Estimate Low L (Normal) Platelet Morphology Normal (Normal) Ovalocytes 1+ H (None) PT 10.0 (9.8-11.6) sec INR 1.0 Ratio APTT 20.1 L (24.3-30.1) sec D-Dimer Quant (PE/DVT) 2.58 H (0.00-0.50) mg/L FEU Sodium 145 (136-145) meq/L Potassium 3.5 (3.5-5.1) meq/L Chloride 107 (98-107) meq/L Carbon Dioxide 32.3 H (21.0-32.0) meq/L Anion Gap 6 (5-15) meq/L BUN 30 H (7-18) mg/dL Creatinine 0.58 (0.50-1.00) mg/dL Estimated GFR Greater than 89 (>89) mL/min Random Glucose 89 (74-106) mg/dL Calcium 7.9 L (8.5-10.1) mg/dL Total Bilirubin Less than 0.1 L (0.2-1.0) mg/dL AST 403 H (15-37) U/L ALT 466 H (10-53) U/L Alkaline Phosphatase 96 (45-117) U/L Troponin I Less than 0.02 L (0.02-0.05) ng/mL Total Protein 5.7 L (6.4-8.2) g/dL Albumin 3.1 L (3.4-5.0) g/dL Imaging Data Radiologist's impression: Chest X-Ray 10/12/17 00:13 CONCLUSION: Stable appearance with no acute cardiopulmonary disease. Pulmonary Perfusion Imaging 10/12/17 00:13 CONCLUSION: 1. Low probability for pulmonary embolism. Abdomen/Pelvis CT 10/12/17 02:19 CONCLUSION: 1. Minimal pleural fluid is noted bilaterally. 2. Status post cholecystectomy. 3. Unremarkable appearing bowel gas pattern. 4. The pancreas is grossly unremarkable in appearance on this noncontrast exam. Discharge Plan Discharge Disposition Patient Disposition: 30 Still Patient Discharge Condition Condition: Stable Discharge Details Diagnosis: Exacerbation of multiple sclerosis Physicians Team ED Provider: Alfred Estrada Primary Care Provider: UNKNOWN, Attending Provider: Misty Crockett Other Providers: Sussy Ackerman Status ED Status: Admitted Observation Patient
[2017-10-12] MEDS ORDERED: Bisacodyl 10 MG Supp RECTAL PRN (05:10)
[2017-10-12] MEDS: Sod Chloride 0.9% Inj 1,000 ML IV.CONT SCH ×2 (05:59→17:54)
[2017-10-12] MEDS ORDERED: Acetaminophen 500 MG Tablet PO PRN (07:57)
[2017-10-12] MEDS: Ketorolac Inj 30 MG/ML (IVP) Vial IV.PUSH PRN ×2 (08:36→14:12)
--- NOTE | 2017-10-12 09:35 | P.HP ---
History of Present Illness Service: Hospitalist Primary Care Physician: UNKNOWN Chief Complaint: Low back pain, lower extremity weakness History of Present Illness: Ms. Fry is a 46-year-old female with a history of multiple sclerosis who presents to the emergency department on 10/11/2017 for an evaluation of MS flare-up. Patient reports that at [facility] recently she underwent an EGD with esophageal dilatation after which she had an episode of cardiac arrest. She also reports E. coli bacteremia during hospitalization at [facility]. She was discharged from the hospital on 10/10/2017. She reports low back pain and lower extremity weakness for the last week or so which prompted her to seek medical attention at [facility]. She does not have any chest pain, shortness of breath, fever or chills. No changes in bowel or bladder habits. Review of Systems All other systems reviewed negative except as stated in HPI PMFSH - History History Provided By: Patient - Medical History Medical History: Medical History (Last Updated 10/11/17 @ 22:02 by Brandee Mendez RN) HTN (hypertension) History of hysterectomy Hypothyroidism Multiple sclerosis Pacemaker Rheumatoid arthritis - Surgical History Surgical History: Surgical History (Last Updated 10/11/17 @ 22:02 by Brandee Mendez RN) H/O laparoscopy History of cholecystectomy History of esophagogastroduodenoscopy (EGD) Hx of appendectomy - Tobacco History Second Hand Smoke Exposure: No Smoking Status: Never smoker - Alcohol History How Often Do You Have a Drink Containing Alcohol: Never - Substance Use History Substance History: No History of Abuse - Travel History Recent Travel in the [place] Within the Last 8 Weeks: No Recent Travel Out of the Country Within the Last 8 Weeks: No - Immunization History Tetanus Immunization: <5 Years Hx Influenza Vaccine This Season: No Medications and Allergies Active Medications: Active Medications Acetaminophen (Tylenol) 500 mg PO Q4H PRN PRN Reason: Fever, headache, pain 1-4 Al Hydroxide/Mg Hydroxide (Milk Of Magnesia Liq) 30 ml PO Q12H PRN PRN Reason: Mild Constipation Bisacodyl (Dulcolax Supp) 10 mg RECTAL DAILY PRN PRN Reason: SEVERE CONSITIPATION Sodium Chloride (Ns Inj) 1,000 mls @ 100 mls/hr IV.CONT .Q10H [facility] Last Admin: 10/12/17 05:59 Dose: 100 mls/hr Ketorolac Tromethamine (Toradol Inj) 30 mg IV.PUSH Q6H PRN PRN Reason: Pain 5-10 Stop: 10/17/17 07:54 Last Admin: 10/12/17 08:36 Dose: 30 mg Lactulose (Lactulose Liq) 30 ml PO DAILY PRN PRN Reason: SEVERE CONSITIPATION Sennosides (Senokot) 17.2 mg PO Q12H PRN PRN Reason: Moderate Constipation Sodium Chloride (Ns Flush) 2 ml IV.FLUSH UNSCH PRN PRN Reason: FLUSH AFTER USING IV ACCESS Allergies Allergy/AdvReac Type Severity Reaction Status Date / Time adhesive Allergy Severe MAKES MY Verified 10/11/17 21:56 SKIN BLEED carbamazepine Allergy Severe cardiac Verified 10/11/17 21:56 arrest codeine Allergy Severe SEIZURE Verified 10/11/17 21:56 Fish Containing Products Allergy Severe including Verified 10/11/17 21:56 all shell fish causes anaphylactic iodine Allergy Severe Anaphylaxis Verified 10/11/17 21:56 latex Allergy Severe HIVES Verified 10/11/17 21:56 meperidine Allergy Severe anaphylactic Verified 10/11/17 21:56 shock oxycodone Allergy Severe HIVES Verified 10/11/17 21:56 phenobarbital Allergy Severe hives Verified 10/11/17 21:56 phenytoin Allergy Severe HIVES Verified 10/11/17 21:56 potassium iodide Allergy Severe Anaphylaxis Verified 10/11/17 21:56 povidone-iodine Allergy Severe Anaphylaxis Verified 10/11/17 21:56 propoxyphene Allergy Severe SWELLING Verified 10/11/17 21:56 OF THE THROAT shellfish derived Allergy Severe Sweeling Verified 10/11/17 21:56 to throat Sulfa (Sulfonamide Allergy Severe hives Verified 10/11/17 21:56 Antibiotics) Home Medications Medication Instructions Recorded Confirmed Type clonazepam 2 mg PO HS 10/11/17 10/11/17 History digoxin 0.125 mg PO DAILY 10/11/17 10/11/17 History diphenhydramine HCl [Benadryl] 25 mg PO Q4-6H PRN 10/11/17 10/11/17 History docusate sodium [Stool Softener] 100 mg PO DAILY 10/11/17 10/11/17 History furosemide [Lasix] 20 mg PO DAILY PRN 10/11/17 10/11/17 History glatiramer [Copaxone] 20 mg SUB-Q DAILY 10/11/17 10/11/17 History hydromorphone 2 mg PO Q4H PRN 10/11/17 10/11/17 History lactulose 20 g PO DAILY 10/11/17 10/11/17 History midodrine 5 mg PO TID 10/11/17 10/11/17 History polyethylene glycol 3350 [Miralax] 1.25 g/kg PO DAILY 10/11/17 10/11/17 History promethazine 25 mg PO Q4HR PRN 10/11/17 10/11/17 History venlafaxine [Effexor XR] 150 mg PO DAILY 10/11/17 10/11/17 History Exam Vital signs: Vital Signs 10/11/17 21:57 10/11/17 22:27 10/12/17 00:28 Temperature 98.7 F Pulse Rate 101 H 74 Respiratory Rate 20 18 Blood Pressure 134/78 120/77 Pulse Oximetry 98 97 97 10/12/17 01:50 10/12/17 01:51 10/12/17 02:30 Temperature 98.4 F Pulse Rate 70 Respiratory Rate 17 17 17 Blood Pressure 131/77 Pulse Oximetry 98 10/12/17 05:14 10/12/17 06:03 10/12/17 07:20 Temperature 98.6 F Pulse Rate 71 72 Respiratory Rate 18 14 Blood Pressure 102/68 120/78 Pulse Oximetry 97 96 Intake & Output 10/11/17 10/12/17 10/12/17 18:59 06:59 18:59 Weight 65.771 kg Narrative: GENERAL: This is a well-nourished, well-developed patient, in no apparent distress. SKIN: No rashes, ecchymoses or lesions. Warm and dry. HEAD: Atraumatic. Normocephalic. No temporal or scalp tenderness. EYES: Pupils equal round and reactive. No injection or drainage. ENT: Nose without bleeding, purulent drainage or septal hematoma. Airway patent. NECK: Trachea midline. No lymphadenopathy. Supple, nontender, no meningeal signs. CARDIOVASCULAR: Regular rate and rhythm without murmurs, gallops, or rubs. No JVD. RESPIRATORY: Clear to auscultation. Breath sounds equal bilaterally. No wheezes , rales, or rhonchi. GASTROINTESTINAL: Abdomen soft, non-tender, nondistended. No guarding. MUSCULOSKELETAL: Extremities without clubbing, cyanosis, or edema. Lower back tenderness on palpation. NEUROLOGICAL: Awake and alert. Cranial nerves II through XII intact. Normal speech. Lower extremity weakness is symmetrical and 4/5. Results - Labs CBC & Chem 7: 10/12/17 00:20 10/12/17 00:20 Labs: Laboratory Results - last 24 hr 10/12/17 10/12/17 10/12/17 00:20 00:20 00:20 WBC 5.2 RBC 4.80 Hgb 13.3 Hct 39.3 MCV 81.9 MCH 27.7 MCHC 33.8 RDW 12.8 Plt Count 127 L MPV 8.6 Prelim Diff (Auto) Slide review pending Neut % (Auto) 54.4 Lymph % (Auto) 27.8 [place] % (Auto) 14.1 H Eos % (Auto) 1.5 Baso % (Auto) 2.2 H Neut # (Auto) 2.8 Lymph # (Auto) 1.4 [place] # (Auto) 0.7 Eos # (Auto) 0.1 Baso # (Auto) 0.1 WBC Differential Manual diff final Seg Neuts % (Manual) 49 Lymphocytes % (Manual) 28 Monocytes % (Manual) 13 H Eosinophils % (Manual) 2 Metamyelocytes % (Man) 2 H Myelocytes % (Man) 4 H Promyelocytes % (Man) 2 H Abs Neuts (Manual) 3.0 Differential Comment . Platelet Estimate Low L Platelet Morphology Normal Ovalocytes 1+ H PT 10.0 INR 1.0 APTT 20.1 L D-Dimer Quant (PE/DVT) 2.58 H Sodium 145 Potassium 3.5 Chloride 107 Carbon Dioxide 32.3 H Anion Gap 6 BUN 30 H Creatinine 0.58 Estimated GFR Greater than 89 Random Glucose 89 Calcium 7.9 L Total Bilirubin Less than 0.1 L AST 403 H ALT 466 H Alkaline Phosphatase 96 Troponin I Less than 0.02 L Total Protein 5.7 L Albumin 3.1 L - Imaging Impressions Chest X-Ray 10/12/17 00:13 CONCLUSION: Stable appearance with no acute cardiopulmonary disease. Pulmonary Perfusion Imaging 10/12/17 00:13 CONCLUSION: 1. Low probability for pulmonary embolism. Abdomen/Pelvis CT 10/12/17 02:19 CONCLUSION: 1. Minimal pleural fluid is noted bilaterally. 2. Status post cholecystectomy. 3. Unremarkable appearing bowel gas pattern. 4. The pancreas is grossly unremarkable in appearance on this noncontrast exam. Caprini VTE Risk Assessment Caprini VTE Risk Assessment: No/Low Risk (score <= 1) Caprini Risk Assessment Model: Point Value = 1 Point Value = 2 Point Value = 3 Point Value = 5 Age 41-60 Minor surgery BMI > 25 kg/m2 Swollen legs Varicose veins or History of unexplained or recurrent spontaneous Oral contraceptives or hormone replacement Sepsis (< 1 month) Serious lung disease, including pneumonia (< 1 month) Abnormal pulmonary function Acute myocardial infarction Congestive heart failure (< 1 month) History of inflammatory bowel disease Medical patient at bed rest Age 61-74 Arthroscopic surgery Major open surgery (> 45 min) Laparoscopic surgery (> 45 min) Malignancy Confined to bed (> 72 hours) Immobilizing plaster cast Central venous access Age >= 75 History of VTE Family history of VTE Factor V Leiden Prothrombin [id number] Lupus anticoagulant Anticardiolipin antibodies Elevated serum homocysteine Heparin-induced thrombocytopenia Other congenital or acquired thrombophilia Stroke (< 1 month) Elective arthroplasty Hip, pelvis, or leg fracture Acute spinal cord injury (< 1 month) Prophylaxis Regimen: Total Risk Factor Score Risk Level Prophylaxis Regimen 0-1 Low Early ambulation 2 Moderate Order ONE of the following: *Sequential Compression Device (SCD) *Heparin 5000 units SQ BID 3-4 Higher Order ONE of the following medications: *Heparin 5000 units SQ TID *Enoxaparin/Lovenox 40 mg SQ daily (WT < 150 kg, CrCl > 30 mL/min) *Enoxaparin/Lovenox 30 mg SQ daily (WT < 150 kg, CrCl > 10-29 mL/min) *Enoxaparin/Lovenox 30 mg SQ BID (WT < 150 kg, CrCl > 30 mL/min) AND/OR *Sequential Compression Device (SCD) 5 or more Highest Order ONE of the following medications: *Heparin 5000 units SQ TID (Preferred with Epidurals) *Enoxaparin/Lovenox 40 mg SQ daily (WT < 150 kg, CrCl > 30 mL/min) *Enoxaparin/Lovenox 30 mg SQ daily (WT < 150 kg, CrCl > 10-29 mL/min) *Enoxaparin/Lovenox 30 mg SQ BID (WT < 150 kg, CrCl > 30 mL/min) AND *Sequential Compression Device (SCD) Assessment and Plan - Plan Ms. Fry is a 46-year-old female with a history of multiple sclerosis who presents to the emergency department due to lower extremity weakness and low back pain. Possible multiple sclerosis exacerbation Lower extremity weakness Low back pain -Neurology has been consulted. Will wait for recommendations. -Toradol and acetaminophen for pain control. Recent history of cardiac arrest Recent history of E. coli bacteremia Recent history of UTI due to E. coli -We will check UA for possible UTI. Full code. Ambulation.
[2017-10-12] MEDS ORDERED: clonazePAM 1 MG Tablet PO PRN (09:47)
--- NOTE | 2017-10-12 11:45 | P.CONNEU ---
History of Present Illness Service: Neurology Consult date: 10/12/17 Requesting Physician: Misty Crockett Reason for Consult: MS exacerbation Primary Care Provider: UNKNOWN Chief Complaint: Low back pain, lower extremity weakness, MS exacerbation History of Present Illness: 46 y/o female with hx of MS presents to ER with increased low back pain and radicular symptoms. Reports this is similar to her MS exacerbations in the past. Reports she had recently been hospitalized at [facility] after EGD with dilitation. She had Solumedrol at that time and did not feel it helped her MS symptoms. She is on Copaxone. She does not follow with an outpatient neurologist but is currently looking to establish care with one. She is on Gabapentin 600mg qhs for her pain, she has not been able to tolerate doses during the day due to fatigue. She has not been on any muscle relaxants in the past. She denies change in bowel or bladder function. No upper extremity weakness. She reports weakness in the L>R lower extremity. She notes pain shooting down both legs like electric shock. Review of Systems All other systems reviewed negative except as stated in HPI Neurologic: Reports abnormal walking, Reports localized weakness, Reports tingling, Reports tingling/numbness/burning sensations, Reports unsteadiness, Reports weakness PMFSH - History History Provided By: Patient - Medical History Medical History: Medical History (Last Updated 10/11/17 @ 22:02 by Brandee Mendez RN) HTN (hypertension) History of hysterectomy Hypothyroidism Multiple sclerosis Pacemaker Rheumatoid arthritis - Surgical History Surgical History: Surgical History (Last Updated 10/11/17 @ 22:02 by Brandee Mendez RN) H/O laparoscopy History of cholecystectomy History of esophagogastroduodenoscopy (EGD) Hx of appendectomy - Tobacco History Second Hand Smoke Exposure: No Smoking Status: Never smoker - Alcohol History How Often Do You Have a Drink Containing Alcohol: Never - Substance Use History Substance History: No History of Abuse - Travel History Recent Travel in the [place] Within the Last 8 Weeks: No Recent Travel Out of the Country Within the Last 8 Weeks: No - Immunization History Tetanus Immunization: <5 Years Hx Influenza Vaccine This Season: No Medications and Allergies Allergies Allergy/AdvReac Type Severity Reaction Status Date / Time adhesive Allergy Severe MAKES MY Verified 10/11/17 21:56 SKIN BLEED carbamazepine Allergy Severe cardiac Verified 10/11/17 21:56 arrest codeine Allergy Severe SEIZURE Verified 10/11/17 21:56 Fish Containing Products Allergy Severe including Verified 10/11/17 21:56 all shell fish causes anaphylactic iodine Allergy Severe Anaphylaxis Verified 10/11/17 21:56 latex Allergy Severe HIVES Verified 10/11/17 21:56 meperidine Allergy Severe anaphylactic Verified 10/11/17 21:56 shock oxycodone Allergy Severe HIVES Verified 10/11/17 21:56 phenobarbital Allergy Severe hives Verified 10/11/17 21:56 phenytoin Allergy Severe HIVES Verified 10/11/17 21:56 potassium iodide Allergy Severe Anaphylaxis Verified 10/11/17 21:56 povidone-iodine Allergy Severe Anaphylaxis Verified 10/11/17 21:56 propoxyphene Allergy Severe SWELLING Verified 10/11/17 21:56 OF THE THROAT shellfish derived Allergy Severe Sweeling Verified 10/11/17 21:56 to throat Sulfa (Sulfonamide Allergy Severe hives Verified 10/11/17 21:56 Antibiotics) Home Medications Medication Instructions Recorded Confirmed Type clonazepam 2 mg PO HS 10/11/17 10/11/17 History digoxin 0.125 mg PO DAILY 10/11/17 10/11/17 History diphenhydramine HCl [Benadryl] 25 mg PO Q4-6H PRN 10/11/17 10/11/17 History docusate sodium [Stool Softener] 100 mg PO DAILY 10/11/17 10/11/17 History furosemide [Lasix] 20 mg PO DAILY PRN 10/11/17 10/11/17 History glatiramer [Copaxone] 20 mg SUB-Q DAILY 10/11/17 10/11/17 History hydromorphone 2 mg PO Q4H PRN 10/11/17 10/11/17 History lactulose 20 g PO DAILY 10/11/17 10/11/17 History midodrine 5 mg PO TID 10/11/17 10/11/17 History polyethylene glycol 3350 [Miralax] 1.25 g/kg PO DAILY 10/11/17 10/11/17 History promethazine 25 mg PO Q4HR PRN 10/11/17 10/11/17 History venlafaxine [Effexor XR] 150 mg PO DAILY 10/11/17 10/11/17 History Active Medications: Active Medications Acetaminophen (Tylenol) 500 mg PO Q4H PRN PRN Reason: Fever, headache, pain 1-4 Al Hydroxide/Mg Hydroxide (Milk Of Magnesia Liq) 30 ml PO Q12H PRN PRN Reason: Mild Constipation Bisacodyl (Dulcolax Supp) 10 mg RECTAL DAILY PRN PRN Reason: SEVERE CONSITIPATION Clonazepam (Klonopin) 1 mg PO Q8HR PRN PRN Reason: ANXIETY Last Admin: 10/12/17 10:06 Dose: 1 mg Sodium Chloride (Ns Inj) 1,000 mls @ 100 mls/hr IV.CONT .Q10H MONTRELL Last Admin: 10/12/17 05:59 Dose: 100 mls/hr Ketorolac Tromethamine (Toradol Inj) 30 mg IV.PUSH Q6H PRN PRN Reason: Pain 5-10 Stop: 10/17/17 07:54 Last Admin: 10/12/17 08:36 Dose: 30 mg Lactulose (Lactulose Liq) 30 ml PO DAILY PRN PRN Reason: SEVERE CONSITIPATION Sennosides (Senokot) 17.2 mg PO Q12H PRN PRN Reason: Moderate Constipation Sodium Chloride (Ns Flush) 2 ml IV.FLUSH UNSCH PRN PRN Reason: FLUSH AFTER USING IV ACCESS Exam Vital signs: Vital Signs 10/11/17 21:57 10/11/17 22:27 10/12/17 00:28 Temperature 98.7 F Pulse Rate 101 H 74 Respiratory Rate 20 18 Blood Pressure 134/78 120/77 Pulse Oximetry 98 97 97 10/12/17 01:50 10/12/17 01:51 10/12/17 02:30 Temperature 98.4 F Pulse Rate 70 Respiratory Rate 17 17 17 Blood Pressure 131/77 Pulse Oximetry 98 10/12/17 05:14 10/12/17 06:03 10/12/17 07:20 Temperature 98.6 F Pulse Rate 71 72 Respiratory Rate 18 14 Blood Pressure 102/68 120/78 Pulse Oximetry 97 96 Intake & Output 10/11/17 10/12/17 10/12/17 18:59 06:59 18:59 Weight 65.771 kg - Routine Neurological Exam alert and orient x 3, PERRL, EOMi, no droop, moving upper extremities against gravity, no droop, cannot lift LLE or move toes on the left, bends knee on the right and moves toes on the right but cannot lift leg, withdraws from pain on the left foot, toes equiv, brisk throughout, unustained clonus noted trini LE, + berry's trini, gait withheld, speech normal, decreased to temp and light touch on the left lower extremity compared to the right Results - Labs CBC & Chem 7: 10/12/17 00:20 10/12/17 00:20 Labs: Laboratory Results - last 24 hr 10/12/17 10/12/17 10/12/17 00:20 00:20 00:20 WBC 5.2 RBC 4.80 Hgb 13.3 Hct 39.3 MCV 81.9 MCH 27.7 MCHC 33.8 RDW 12.8 Plt Count 127 L MPV 8.6 Prelim Diff (Auto) Slide review pending Neut % (Auto) 54.4 Lymph % (Auto) 27.8 Faulkner % (Auto) 14.1 H Eos % (Auto) 1.5 Baso % (Auto) 2.2 H Neut # (Auto) 2.8 Lymph # (Auto) 1.4 Faulkner # (Auto) 0.7 Eos # (Auto) 0.1 Baso # (Auto) 0.1 WBC Differential Manual diff final Seg Neuts % (Manual) 49 Lymphocytes % (Manual) 28 Monocytes % (Manual) 13 H Eosinophils % (Manual) 2 Metamyelocytes % (Man) 2 H Myelocytes % (Man) 4 H Promyelocytes % (Man) 2 H Abs Neuts (Manual) 3.0 Differential Comment . Platelet Estimate Low L Platelet Morphology Normal Ovalocytes 1+ H PT 10.0 INR 1.0 APTT 20.1 L D-Dimer Quant (PE/DVT) 2.58 H Sodium 145 Potassium 3.5 Chloride 107 Carbon Dioxide 32.3 H Anion Gap 6 BUN 30 H Creatinine 0.58 Estimated GFR Greater than 89 Random Glucose 89 Calcium 7.9 L Total Bilirubin Less than 0.1 L AST 403 H ALT 466 H Alkaline Phosphatase 96 Troponin I Less than 0.02 L Total Protein 5.7 L Albumin 3.1 L - Imaging Impressions Chest X-Ray 10/12/17 00:13 CONCLUSION: Stable appearance with no acute cardiopulmonary disease. Pulmonary Perfusion Imaging 10/12/17 00:13 CONCLUSION: 1. Low probability for pulmonary embolism. Abdomen/Pelvis CT 10/12/17 02:19 CONCLUSION: 1. Minimal pleural fluid is noted bilaterally. 2. Status post cholecystectomy. 3. Unremarkable appearing bowel gas pattern. 4. The pancreas is grossly unremarkable in appearance on this noncontrast exam. Review/Management - Review/Management Plan: continue Copaxone continue Gabapentin 600mg qhs, reports she is unable to tolerate higher doses Solumedrol 1g over 4 hrs x 3 days MRI brain, Cspine and Lspine if pacemaker MRI compatible trial of Baclofen 10mg qhs LP in 2007 did not show Oliogoclonal bands, ? if this is in fact MS Addendum to Inpatient Note Additional information: note: pt seen examined and d/w PA. agree for tx with solumedrol 1gm qd over 4 hrs for 3 days. mri brain c and l/s spine baclofen pt-ot eval.
[2017-10-12] MEDS ORDERED: MethylPREDNISolone Sod Suc Inj 1,000 MG in Sodium Chlor 0.9% Inj 100 ML IV.SIG SCH (13:00)
[2017-10-12 15:23] LABS: Bilirubin,Urine Negative (Negative); Clarity,Urine Clear (Clear); Color,Urine Yellow (Yellw/Straw); Glucose,Urine (UA) 500 or Greater mg/dL (Negative); Leukocyte Esterase,Urine Negative (Negative); Nitrite,Urine Negative (Negative); Specific Gravity,Urine 1.015 (1.002-1.035)
[2017-10-12 15:55] VITALS: RESP 16
[2017-10-12] MEDS ORDERED: Gadobutrol PF 7.5 MMOL/7.5 ML Vial (for RAD) IV.SIG ONE (17:08)
--- NOTE | 2017-10-12 17:14 | ECG ---
Date Performed: 10/12/2017 Time Performed: 01:40:25 PTAGE: 46 years EKG: ELECTRONIC ATRIAL PACEMAKER MARKED LEFT AXIS DEVIATION MODERATE T-WAVE ABNORMALITY, CONSIDE R ANTERIOR ISCHEMIA ABNORMAL ECG Since the PREVIOUS TRACING , no significant change noted PREVIOUS TRACIN04/15/2017 03.39 DOCTOR: Lindsay Loja Interpretating Date/Time 10/12/2017 17:12:57
--- NOTE | 2017-10-12 17:37 | MR ---
EXAM DATE: 10/12/2017 5:23 PM EDT AGE/SEX: 46 years / Female INDICATIONS: . Weakness. Hx of multiple sclerosis. CLINICAL DATA: This is the patient's initial encounter. Patient reports that signs and symptoms have been present for 3 days and indicates a pain score of 0/10. MEDICAL/SURGICAL HISTORY: Multiple sclerosis. Hypertension. Pacemaker. Hysterectomy. COMPAR[place]: [facility] [place]/15/2017. [facility] [place] BRAIN W & W/O CONTRAST, 01/24/2017. . TECHNIQUE: Multiplanar, multisequence examination of the brain was performed without and with 6.5 ml Gadavist (gadobutrol) contrast as a single exam dose. FINDINGS: The signal intensity of the brain is normal. Only a tiny punctate area of increased FLAIR signal in t he left frontal white matter is present. This is stable. Ventricles and cisterns are of normal size a nd configuration. No evidence for acute infarction, hemorrhage, or mass. There is a focal area of inc reased T2 signal in the left caudate region which is unchanged and nonacute. There are no abnormal ar eas of enhancement seen. CONCLUSION: 1. Interval appearance of the brain with no acute abnormalities. Electronically signed by: Abner Weathers MD 10/12/2017 5:36 PM EDT
--- NOTE | 2017-10-12 17:42 | MR ---
EXAM DATE: 10/12/2017 5:39 PM EDT AGE/SEX: 46 years / Female INDICATIONS: . Weakness. Hx of multiple sclerosis. CLINICAL DATA: This is the patient's subsequent encounter. Patient reports that signs and symptoms h ave been present for 1 day and indicates a pain score of 0/10. MEDICAL/SURGICAL HISTORY: Multiple sclerosis. Hypertension. Pacemaker. Hysterectomy. COMPARISON: [facility] – [place], [place] CERVICAL SPINE W & W/O CON, 10/12/2017. . TECHNIQUE: Multiplanar, multisequence MRI examination of the lumbar spine was performed without and with 6.5 ml Gadavist (gadobutrol) contrast as a single exam dose. FINDINGS: The most caudal-appearing lumbar vertebra is numbered as L5. Mild diffuse disc desiccation. Conus unr emarkable. T12-L1: Tiny left central disc protrusion without canal or foraminal narrowing. L1-L2: The thecal sac has a normal diameter. No evidence of disc bulge or protrusion. The neural foramina are patent bilaterally. L2-L3: The thecal sac has a normal diameter. No evidence of disc bulge or protrusion. The neural foramina are patent bilaterally. L3-L4: The thecal sac has a normal diameter. No evidence of disc bulge or protrusion. The neural foramina are patent bilaterally. L4-L5: The thecal sac has a normal diameter. No evidence of disc bulge or protrusion. The neural foramina are patent bilaterally. L5-S1: The thecal sac has a normal diameter. No evidence of disc bulge or protrusion. The neural foramina are patent bilaterally. CONCLUSION: 1. Tiny disc protrusion at T12-L1 with disc desiccation, otherwise unremarkable study. Electronically signed by: Abner Weathers MD 10/12/2017 5:41 PM EDT
--- NOTE | 2017-10-12 18:00 | MR ---
EXAM DATE: 10/12/2017 5:50 PM EDT AGE/SEX: 46 years / Female INDICATIONS: . Weakness. Hx of multiple sclerosis. CLINICAL DATA: This is the patient's initial encounter. Patient reports that signs and symptoms have been present for 2 days and indicates a pain score of 0/10. MEDICAL/SURGICAL HISTORY: Multiple sclerosis. Hypertension. Pacemaker. Hysterectomy. COMPARISON: [facility] [place] LUMBAR [place] W & W/O CONTRAST, 10/12/2017. . TECHNIQUE: Multiplanar, multisequence MRI examination of the cervical spine was performed without an d with 6.5 ml Gadavist (gadobutrol) contrast as a single exam dose. FINDINGS: Vertebrae: Normal vertebral body height. Homogeneous marrow signal. Alignment: Normal. Cord: Normal configuration and signal. Post Fossa: The cerebellar tonsils are normal in position. Post Contrast: No abnormal areas of enhancement are seen. C2-C3: The thecal sac has a normal configuration. There is no evidence of disc herniation or spinal canal stenosis. The neural foramina are patent bilaterally. C3-C4: The thecal sac has a normal configuration. There is no evidence of disc herniation or spinal canal stenosis. The neural foramina are patent bilaterally. C4-C5: The thecal sac has a normal configuration. There is no evidence of disc herniation or spinal canal stenosis. The neural foramina are patent bilaterally. C5-C6: Minimal disc bulge slightly eccentric to the left with slight effacement of ventral thecal sa c. C6-C7: Minimal disc bulge centrally with no canal or foraminal narrowing. C7-T1: No epidural impressions seen. CONCLUSION: 1. Mild degenerative disc disease. 2. The spinal cord is normal in appearance. Electronically signed by: Abner Weathers MD 10/12/2017 5:59 PM EDT
[2017-10-12 19:27] VITALS: BP 129/80; PULSE 73; TEMP 98.3; O2SAT 96
[2017-10-12] MEDS ORDERED: Baclofen 10 MG Tablet PO SCH (21:00)
[2017-10-12] MEDS ORDERED: Gabapentin 300 MG Capsule PO SCH (21:00)
--- NOTE | 2017-10-12 22:06 | P.AMA ---
AMA Note - AMA Note AMA Statement: Patient Rand Fry has decided to leave the hospital against medical advice. This patient has the capacity to refuse care and understands the risks of leaving, including permanent disability and/or , and has had an opportunity to ask questions about his/her condition. The patient has been informed that he/she may return for care at any time, and follow up has been arranged/advised. - AMA Note Discharge Disposition: Left Against Medical Advice Patient Condition on Discharge: Fair
== END 2017-10-12 21:58 | disposition left against medical advice (07) ==
LOC: NEPGCP 21:03 → NEPC 21:03 → NEDA 21:03 → NEPGCP 10-12 12:51
PROVIDERS: ADMIT Hospitalist; ATTEND Hospitalist

== ENCOUNTER 2018-01-24 18:44 | Observation (INO) ==
[2018-01-24] MEDS ORDERED: Sod Chloride 0.9% Inj 1,000 ML IV.CONT SCH (19:00)
--- NOTE | 2018-01-24 19:04 | ED ---
HPI General Chief Complaint: Seizure Stated Complaint: stroke alert/evac Time Seen by Provider: 01/24/18 18:49 Source: EMS Mode of arrival: EMS History of Present Illness HPI Narrative: Patient is a 47-year-old female, past medical history significant for previous TIA, CVA, multiple sclerosis, who presents with complaint of altered mental status. Per report she was last seen well at approximately noon. Her significant other called EMS because she was altered and seemed to be more confused. EMS reports that she will respond to them but keeps eating "get them off me." They state that she had some movement that appeared to be seizure-like but was still responding to them during that time. They gave her 2 mg of Versed. On patient arrival here she is able to tell me her name and her age. She responds with no when asked if she is hurting anywhere but does not provide any other history. MD complaint: Reports possible seizure Onset (ago): minute(s) Description of Episode: Reports other Witnessed: yes - by EMS Trauma: No Seizure History: Reports known seizure disorder Possible Precipitating Event: Reports none Treatments prior to arrival: Reports benzodiazepines Related Data Home Medications Medication Instructions Recorded Confirmed clonazepam 2 mg PO HS 10/11/17 01/24/18 digoxin 0.125 mg PO DAILY 10/11/17 01/24/18 diphenhydramine HCl [Benadryl] 25 mg PO Q4-6H PRN 10/11/17 01/24/18 docusate sodium [Stool Softener] 100 mg PO DAILY 10/11/17 01/24/18 furosemide [Lasix] 20 mg PO DAILY PRN 10/11/17 01/24/18 glatiramer [Copaxone] 20 mg SUB-Q DAILY 10/11/17 01/24/18 hydromorphone 2 mg PO Q4H PRN 10/11/17 01/24/18 lactulose 20 g PO DAILY 10/11/17 01/24/18 midodrine 5 mg PO TID 10/11/17 01/24/18 polyethylene glycol 3350 [Miralax] 1.25 g/kg PO DAILY 10/11/17 01/24/18 promethazine 25 mg PO Q4HR PRN 10/11/17 01/24/18 venlafaxine [Effexor XR] 150 mg PO DAILY 10/11/17 01/24/18 Allergies Allergy/AdvReac Type Severity Reaction Status Date / Time adhesive Allergy Severe MAKES MY Verified 01/24/18 19:06 SKIN BLEED carbamazepine Allergy Severe cardiac Verified 01/24/18 19:06 arrest codeine Allergy Severe SEIZURE Verified 01/24/18 19:06 Fish Containing Products Allergy Severe including Verified 01/24/18 19:06 all shell fish causes anaphylactic iodine Allergy Severe Anaphylaxis Verified 01/24/18 19:06 latex Allergy Severe HIVES Verified 01/24/18 19:06 meperidine Allergy Severe anaphylactic Verified 01/24/18 19:06 shock oxycodone Allergy Severe HIVES Verified 01/24/18 19:06 phenobarbital Allergy Severe hives Verified 01/24/18 19:06 phenytoin Allergy Severe HIVES Verified 01/24/18 19:06 potassium iodide Allergy Severe Anaphylaxis Verified 01/24/18 19:06 povidone-iodine Allergy Severe Anaphylaxis Verified 01/24/18 19:06 propoxyphene Allergy Severe SWELLING Verified 01/24/18 19:06 OF THE THROAT shellfish derived Allergy Severe Sweeling Verified 01/24/18 19:06 to throat Sulfa (Sulfonamide Allergy Severe hives Verified 01/24/18 19:06 Antibiotics) Review of Systems ROS: all other systems reviewed are negative [facility] Medical History Medical History Seizures (Acute) TIA (transient ischemic attack) (Acute) HTN (hypertension) (Acute) History of hysterectomy (Acute) Hypothyroidism (Acute) Multiple sclerosis (Acute) Pacemaker (Acute) Rheumatoid arthritis (Acute) Surgical History Surgical History H/O laparoscopy (Acute) History of cholecystectomy (Acute) History of esophagogastroduodenoscopy (EGD) (Acute) Hx of appendectomy (Acute) Social History Social History Substance History: No History of Abuse Second Hand Smoke Exposure: No Smoking Status: Never smoker How Often Do You Have a Drink Containing Alcohol: Never Recent Travel in [facility] within the Last 8 Weeks: No Recent Out of Country Travel within the Last 8 Weeks: No Exam Narrative Exam Narrative: GENERAL: Generally well-appearing female SKIN: Focused skin assessment warm/dry. No rashes. HEAD: Atraumatic. Normocephalic. EYES: Pupils equal and round. No scleral icterus. No injection or drainage. ENT: No nasal bleeding or discharge. Mucous membranes pink and moist. NECK: Trachea midline. No JVD. CARDIOVASCULAR: Regular rate and rhythm. No murmur appreciated. Intact and equal peripheral pulses. RESPIRATORY: No accessory muscle use. Clear to auscultation. Breath sounds equal bilaterally. GASTROINTESTINAL: Abdomen soft, non-tender, nondistended. Hepatic and splenic margins not palpable. MUSCULOSKELETAL: No obvious deformities. No clubbing. No cyanosis. No edema. NEUROLOGICAL: Awake and alert, but confused and dazed appearing. No obvious cranial nerve deficits. We will not move right-sided extremities and reports decreased sensation. Normal speech. PSYCHIATRIC: Appropriate mood and affect; insight and judgment normal. Course Initial Documented Vital Signs Temperature 97.6 F 01/24/18 18:46 Pulse Rate 86 01/24/18 18:46 Respiratory Rate 27 H 01/24/18 18:46 Blood Pressure 114/72 01/24/18 18:46 Pulse Oximetry 100 01/24/18 18:46 Last Documented Vital Signs Temperature 97.6 F 01/24/18 18:46 Pulse Rate 74 01/24/18 20:07 Respiratory Rate 16 01/24/18 20:07 Blood Pressure 118/58 L 01/24/18 20:07 Pulse Oximetry 100 01/24/18 20:07 Medical Decision Making MDM Narrative Medical decision making narrative: Patient is a 47-year-old female who presents with complaint of right-sided weakness. This happened within the last 24 hours (though too late to be a candidate for tpa) and stroke alert was activated. Noncontrast CT of the head was unremarkable. I spoke with Dr. Bell, neurologist on-call, whom is familiar with the patient and stated that she has a history of conversion disorder and has presented similarly in the past. He recommended a neurology consult in the morning. CTA was canceled by the radiology supervisor as the patient had an allergy to iodine. She has been admitted to Dr. Farley, hospitalist on-call, for an MRI and further evaluation and management. Medical Screen Exam Complete: Yes Emergency Medical Condition: Yes Differential Diagnosis Differential Diagnosis: Differential diagnosis includes but is not limited to acute CVA, Mike's paralysis, pseudoseizures, conversion disorder, electrolyte disturbance. Medical Records Medical records reviewed: Yes I reviewed the patient's medical records. Lab Data Lab results reviewed: Yes I reviewed the patient's lab results. Result diagrams: 01/24/18 16:49 01/24/18 16:49 Lab Results 01/24/18 01/24/18 01/24/18 Range/Units 16:49 16:49 16:49 WBC 3.8 L (4.0-11.0) th/mm3 RBC 4.13 (4.00-5.30) mil/mm3 Hgb 12.1 (11.6-15.3) gm/dL POC Hgb (Calc) (11.6-15.3) g/dL Hct 35.7 (35.0-46.0) % POC Hct (35-46.0) % MCV 86.4 (80.0-100.0) fL MCH 29.4 (27.0-34.0) pg MCHC 34.0 (32.0-36.0) % RDW 12.9 (11.6-17.2) % Plt Count 146 L (150-450) th/mm3 MPV 8.8 (7.0-11.0) fL Neut % (Auto) 34.7 (16.0-70.0) % Lymph % (Auto) 40.1 (9.0-44.0) % [place] % (Auto) 16.0 H (0.0-8.0) % Eos % (Auto) 8.5 H (0.0-4.0) % Baso % (Auto) 0.7 (0.0-2.0) % Neut # (Auto) 1.3 L (1.8-7.7) th/mm3 Lymph # (Auto) 1.5 (1.0-4.8) th/mm3 [place] # (Auto) 0.6 (0.0-0.9) th/mm3 Eos # (Auto) 0.3 (0.0-0.4) th/mm3 Baso # (Auto) 0.0 (0.0-0.2) th/mm3 WBC Differential . Differential Comment Auto diff final PT 10.0 (9.8-11.6) sec INR 1.0 Ratio APTT 26.1 (23.4-31.7) sec POC Sodium (137-144) mmol/L Sodium 143 (136-145) meq/L POC Potassium (3.6-5.0) mmol/L Potassium 3.6 (3.5-5.1) meq/L POC Chloride (102-111) mmol/L Chloride 106 (98-107) meq/L Carbon Dioxide 30.1 (21.0-32.0) meq/L Anion Gap 7 (5-15) meq/L POC BUN (5-21) mg/dL BUN 13 (7-18) mg/dL Creatinine 0.59 (0.50-1.00) mg/dL POC Creatinine (0.6-1.3) mg/dL Estimated GFR Greater than 89 (>89) mL/min POC Glucose (68-110) mg/dL Random Glucose 93 (74-106) mg/dL Calcium 8.3 L (8.5-10.1) mg/dL Total Creatine Kinase 41 (26-192) U/L Troponin I Less than 0.02 L (0.02-0.05) ng/mL Beta HCG, Quant 10 H (0-5) mIU/mL Urine Color (Yellw/Straw) Urine Clarity (Clear) Urine pH (5.0-8.5) Ur Specific Williams (1.002-1.035) Urine Protein (Neg-Trace) mg/dL Urine Glucose (UA) (Negative) mg/dL Urine Ketones (Negative) mg/dL Urine Occult Blood (Negative) Urine Nitrate (Negative) Urine Bilirubin (Negative) Urine Urobilinogen (Less than 2) mg/dL Ur Leukocyte Esterase (Negative) Urine RBC (0-3) /hpf Urine WBC (0-5) /hpf Ur Squamous Epith Cells (0-5) /hpf Urine Mucus (Occasional) /lpf Micro UA Comment Ur Microscopic Review Urine Culture Comments 01/24/18 01/24/18 01/24/18 Range/Units 16:49 18:47 20:00 WBC (4.0-11.0) th/mm3 RBC (4.00-5.30) mil/mm3 Hgb (11.6-15.3) gm/dL POC Hgb (Calc) 11.2 L (11.6-15.3) g/dL Hct (35.0-46.0) % POC Hct 33.0 L (35-46.0) % MCV (80.0-100.0) fL MCH (27.0-34.0) pg MCHC (32.0-36.0) % RDW (11.6-17.2) % Plt Count (150-450) th/mm3 MPV (7.0-11.0) fL Neut % (Auto) (16.0-70.0) % Lymph % (Auto) (9.0-44.0) % [place] % (Auto) (0.0-8.0) % Eos % (Auto) (0.0-4.0) % Baso % (Auto) (0.0-2.0) % Neut # (Auto) (1.8-7.7) th/mm3 Lymph # (Auto) (1.0-4.8) th/mm3 [place] # (Auto) (0.0-0.9) th/mm3 Eos # (Auto) (0.0-0.4) th/mm3 Baso # (Auto) (0.0-0.2) th/mm3 WBC Differential Differential Comment PT (9.8-11.6) sec INR Ratio APTT (23.4-31.7) sec POC Sodium 144 (137-144) mmol/L Sodium (136-145) meq/L POC Potassium 3.6 (3.6-5.0) mmol/L Potassium (3.5-5.1) meq/L POC Chloride 100 L (102-111) mmol/L Chloride (98-107) meq/L Carbon Dioxide (21.0-32.0) meq/L Anion Gap (5-15) meq/L POC BUN 12 (5-21) mg/dL BUN (7-18) mg/dL Creatinine (0.50-1.00) mg/dL POC Creatinine 0.7 (0.6-1.3) mg/dL Estimated GFR (>89) mL/min POC Glucose 86 84 (68-110) mg/dL Random Glucose (74-106) mg/dL Calcium (8.5-10.1) mg/dL Total Creatine Kinase (26-192) U/L Troponin I (0.02-0.05) ng/mL Beta HCG, Quant (0-5) mIU/mL Urine Color Straw (Yellw/Straw) Urine Clarity Clear (Clear) Urine pH 7.0 (5.0-8.5) Ur Specific Williams 1.011 (1.002-1.035) Urine Protein Negative (Neg-Trace) mg/dL Urine Glucose (UA) Negative (Negative) mg/dL Urine Ketones Negative (Negative) mg/dL Urine Occult Blood Negative (Negative) Urine Nitrate Negative (Negative) Urine Bilirubin Negative (Negative) Urine Urobilinogen Less than 2 (Less than 2) mg/dL Ur Leukocyte Esterase Trace H (Negative) Urine RBC Less than 1 (0-3) /hpf Urine WBC 2 (0-5) /hpf Ur Squamous Epith Cells <1 (0-5) /hpf Urine Mucus Few H (Occasional) /lpf Micro UA Comment Culture not ind Ur Microscopic Review Not Reportable Urine Culture Comments Culture not ind Imaging Data Attestation: I personally reviewed and interpreted this imaging study as follows : Radiologist's impression: Head CT 01/24/18 18:50 CONCLUSION: 1. Negative noncontrast CT brain. Report was called to Dr. Hernandez at 7:05 PM Chest X-Ray 01/24/18 18:51 CONCLUSION: No acute cardiopulmonary disease. Discharge Plan Discharge Disposition Patient Disposition: 30 Still Patient Discharge Condition Condition: Stable Discharge Details Diagnosis: Weakness Physicians Team ED Provider: Bridgette Hernandez Primary Care Provider: UNKNOWN, Attending Provider: Shayla Farley Discharge Interventions Interventions: Vital Signs Last Done: 01/24/18 20:07 Status ED Status: Admitted Observation Patient
--- NOTE | 2018-01-24 19:07 | CT ---
EXAM DATE: 01/24/2018 7:04 PM EST AGE/SEX: 47 years / Female INDICATIONS: Lethargic CLINICAL DATA: This is the patient's initial encounter. Patient reports that signs and symptoms have been present for 1 day and indicates a pain score of Nonresponsive. MEDICAL/SURGICAL HISTORY: Non-responsive. Non-responsive. RADIATION DOSE: 34.94 CTDI (mGy) COMPARISON: No prior exams available for comparison. TECHNIQUE: CT of the head without contrast. Using automated exposure control and adjustment of the mA and/or kV according to patient size, radiation dose was kept as low as reasonably achievable to ob tain optimal diagnostic quality images. DICOM format image data is available electronically for revi ew and comparison. FINDINGS: Cerebrum: The ventricles are normal for age. No evidence of midline shift, mass lesion, hemorrhage or acute infarction. No extraaxial fluid collections are seen. Posterior Fossa: The cerebellum and brainstem are intact. The 4th ventricle is midline. The cerebe llopontine angle is unremarkable. Extracranial: The visualized portion of the orbits is intact. Skull: The calvaria is intact. No evidence of skull fracture. CONCLUSION: 1. Negative noncontrast CT brain. Report was called to Dr. Hernandez at 7:05 PM Electronically signed by: Eyal Kendall MD 01/24/2018 7:06 PM EST
[2018-01-24 19:15] LABS: Baso % (Auto) 0.7 % (0.0-2.0); Eos # (Auto) 0.3 th/mm3 (0.0-0.4); Eos % (Auto) 8.5 % (0.0-4.0); Hematocrit 35.7 % (35.0-46.0); Hemoglobin 12.1 gm/dL (11.6-15.3); Lymph # (Auto) 1.5 th/mm3 (1.0-4.8); Lymph % (Auto) 40.1 % (9.0-44.0); Mean Corpuscular Hemoglobin 29.4 pg (27.0-34.0); Mean Corpuscular Volume 86.4 fL (80.0-100.0); Mean Platelet Volume 8.8 fL (7.0-11.0); Mono # (Auto) 0.6 th/mm3 (0.0-0.9); Neut # (Auto) 1.3 th/mm3 (1.8-7.7); Neut % (Auto) 34.7 % (16.0-70.0); Platelet Count 146 th/mm3 (150-450); Red Blood Count 4.13 mil/mm3 (4.00-5.30); Red Cell Distribution Width 12.9 % (11.6-17.2); White Blood Count 3.8 th/mm3 (4.0-11.0)
--- NOTE | 2018-01-24 19:19 | XR ---
EXAM DATE: 01/24/2018 7:10 PM EST AGE/SEX: 47 years / Female INDICATIONS: Stroke alert. CLINICAL DATA: This is the patient's initial encounter. Patient reports that signs and symptoms have been present for 1 day and indicates a pain score of Nonresponsive. MEDICAL/SURGICAL HISTORY: . Gastroesophageal reflux disease. Myocardial infarction. Multiple Sc lerosis, TIA, A-fib. . Pacemaker. Tubal ligation. Appendectomy. Sonya, Hysterectomy. COMPARISON: [facility] – [place], CHEST 1V SINGLE AP, 10/12/2017. . FINDINGS: A single AP view of the chest demonstrates the lungs to be symmetrically aerated without evidence of mass, infiltrate or effusion. The cardiomediastinal contours are unremarkable. Osseous structures a re intact. Dual-lead pacing device overlying the right chest. CONCLUSION: No acute cardiopulmonary disease. Electronically signed by: Eyal Alston MD 01/24/2018 7:17 PM EST
[2018-01-24 19:31] LABS: Activated Partial Thrombo Time 26.1 sec (23.4-31.7)
[2018-01-24 19:39] LABS: Anion Gap 7 meq/L (5-15); Blood Urea Nitrogen 13 mg/dL (7-18); Calcium 8.3 mg/dL (8.5-10.1); Carbon Dioxide 30.1 meq/L (21.0-32.0); Chloride 106 meq/L (98-107); Glomerular Filtration Rate Greater Than 89 mL/min (>89); Glucose,Random 93 mg/dL (74-106); Potassium 3.6 meq/L (3.5-5.1); Sodium 143 meq/L (136-145)
[2018-01-24 19:43] LABS: Beta HCG,Quantitative 10 mIU/mL (0-5)
[2018-01-24 19:50] LABS: Creatine Kinase 41 U/L (26-192)
[2018-01-24] MEDS ORDERED: Acetaminophen 325 MG Tablet PO ONE (20:34)
[2018-01-24 20:44] LABS: Bilirubin,Urine Negative (Negative); Clarity,Urine Clear (Clear); Color,Urine Straw (Yellw/Straw); Glucose,Urine (UA) Negative (Negative); Leukocyte Esterase,Urine Trace (Negative); Mucus,Urine Few /lpf (Occasional); Nitrite,Urine Negative (Negative); Specific Gravity,Urine 1.011 (1.002-1.035); Squamous Epithelial Cell,Urine <1 /hpf (0-5)
[2018-01-24] MEDS ORDERED: Lidocaine 5% Patch T-DERMAL ONE (20:52)
[2018-01-24] MEDS ORDERED: Acetaminophen 325 MG Tablet PO PRN (22:16)
[2018-01-24] MEDS ORDERED: Bisacodyl 10 MG Supp RECTAL PRN (22:16)
[2018-01-24] MEDS ORDERED: Furosemide 20 MG Tablet PO PRN (22:25)
--- NOTE | 2018-01-24 22:36 | P.HP ---
History of Present Illness Service: [facility] Primary Care Physician: UNKNOWN History of Present Illness: 47-year-old female who reports a past medical history significant for multiple sclerosis, rheumatoid arthritis, neuropathy, hypotension and is status post pacemaker placement she says secondary to damage from her MS presents to the emergency department for the evaluation of altered mental status and right- sided weakness. The patient was hospitalized 1 year ago for similar symptoms and was evaluated by both psychiatry and neurology. Neurology found no demyelinating lesions for multiple sclerosis and psychiatry addressed to the possibility of Munchausen syndrome versus factitious disorder. The patient reports she does not know why she was brought to the emergency department. Per the patient's son, who called 911 he reports that she was taking a nap on the couch when he went to awaken her for dinner. He states that he tried for 25 minutes and his mother was unresponsive. In route to the emergency department he noted that she had seizure-like activity. The patient does not have a history of seizure disorder and has no memory of the events. The patient reports that since she has regained consciousness she has been unable to move her right upper and lower extremity. She denies any chest pain or shortness of breath. No abdominal pain. No nausea/vomiting/diarrhea. No fevers/chills. Review of Systems All other systems reviewed negative except as stated in HPI PMFSH - History History Provided By: Patient, Regional Liaison / EMT - Medical History Medical History: Medical History (Last Reviewed 01/24/18 @ 22:20 by Shayla Farley MD) Seizures TIA (transient ischemic attack) HTN (hypertension) History of hysterectomy Hypothyroidism Multiple sclerosis Pacemaker Rheumatoid arthritis - Surgical History Surgical History: Surgical History (Last Reviewed 01/24/18 @ 22:21 by Shayla Farley MD) H/O laparoscopy History of cholecystectomy History of esophagogastroduodenoscopy (EGD) Hx of appendectomy - Family History Family History: Family History (Last Updated 01/24/18 @ 22:21 by Shayla Farley MD) Other Coronary artery disease - Tobacco History Second Hand Smoke Exposure: No Smoking Status: Never smoker - Alcohol History How Often Do You Have a Drink Containing Alcohol: Never - Substance Use History Substance History: No History of Abuse - Travel History Recent Travel in the [place] Within the Last 8 Weeks: No Recent Travel Out of the Country Within the Last 8 Weeks: No - Immunization History Tetanus Immunization: <5 Years Medications and Allergies Active Medications: Active Medications Sodium Chloride (Ns Inj) 1,000 mls @ 70 mls/hr IV.CONT .[id number] [facility] Stop: 01/25/18 09:17 Last Admin: 01/24/18 19:22 Dose: 70 mls/hr Patch Removal (Remove Old Patch) 1 each T-DERMAL HS [facility] Sodium Chloride (Ns Flush) 2 ml IV.FLUSH PRN PRN PRN Reason: FLUSH AFTER USING IV ACCESS Allergies Allergy/AdvReac Type Severity Reaction Status Date / Time adhesive Allergy Severe MAKES MY Verified 01/24/18 19:06 SKIN BLEED carbamazepine Allergy Severe cardiac Verified 01/24/18 19:06 arrest codeine Allergy Severe SEIZURE Verified 01/24/18 19:06 Fish Containing Products Allergy Severe including Verified 01/24/18 19:06 all shell fish causes anaphylactic iodine Allergy Severe Anaphylaxis Verified 01/24/18 19:06 latex Allergy Severe HIVES Verified 01/24/18 19:06 meperidine Allergy Severe anaphylactic Verified 01/24/18 19:06 shock oxycodone Allergy Severe HIVES Verified 01/24/18 19:06 phenobarbital Allergy Severe hives Verified 01/24/18 19:06 phenytoin Allergy Severe HIVES Verified 01/24/18 19:06 potassium iodide Allergy Severe Anaphylaxis Verified 01/24/18 19:06 povidone-iodine Allergy Severe Anaphylaxis Verified 01/24/18 19:06 propoxyphene Allergy Severe SWELLING Verified 01/24/18 19:06 OF THE THROAT shellfish derived Allergy Severe Sweeling Verified 01/24/18 19:06 to throat Sulfa (Sulfonamide Allergy Severe hives Verified 01/24/18 19:06 Antibiotics) Home Medications Medication Instructions Recorded Confirmed Type clonazepam 2 mg PO HS 10/11/17 01/24/18 History digoxin 0.125 mg PO DAILY 10/11/17 01/24/18 History diphenhydramine HCl [Benadryl] 25 mg PO Q4-6H PRN 10/11/17 01/24/18 History docusate sodium [Stool Softener] 100 mg PO DAILY 10/11/17 01/24/18 History furosemide [Lasix] 20 mg PO DAILY PRN 10/11/17 01/24/18 History glatiramer [Copaxone] 20 mg SUB-Q DAILY 10/11/17 01/24/18 History hydromorphone 2 mg PO Q4H PRN 10/11/17 01/24/18 History lactulose 20 g PO DAILY 10/11/17 01/24/18 History midodrine 5 mg PO TID 10/11/17 01/24/18 History polyethylene glycol 3350 [Miralax] 1.25 g/kg PO DAILY 10/11/17 01/24/18 History promethazine 25 mg PO Q4HR PRN 10/11/17 01/24/18 History venlafaxine [Effexor XR] 150 mg PO DAILY 10/11/17 01/24/18 History Exam Vital signs: Vital Signs 01/24/18 18:46 01/24/18 19:05 01/24/18 19:23 Temperature 97.6 F Pulse Rate 86 69 Respiratory Rate 27 H 16 15 Blood Pressure 114/72 124/76 Pulse Oximetry 100 100 01/24/18 19:25 01/24/18 20:07 01/24/18 21:00 Temperature Pulse Rate 74 69 Respiratory Rate 16 17 Blood Pressure 118/58 L 109/62 Pulse Oximetry 98 100 98 Intake & Output 01/24/18 01/24/18 01/25/18 06:59 18:59 06:59 Weight 72.575 kg Narrative: Gen.: No acute distress Head: Normocephalic. Atraumatic. EENT: Pupils equal round and reactive to light. Nose without drainage. Airway intact. Throat without injection. Cardiovascular: Regular rate and rhythm. No murmurs, rubs or gallops. Respiratory: Lungs clear to auscultation bilaterally. No wheezes or rhonchi. Abdomen: Soft, nontender, nondistended. No peritoneal signs. Musculoskeletal: No gross deformities. No edema. Skin: No obvious rashes or erythema. Neuro: Alert and oriented x3. Patient unable to lift upper or lower right extremity off the bed. Able to prevent arm from falling against gravity. Able to direct arm back to its resting place by her side when it is moved. Reports numbness and tingling in upper and lower right extremities. Cranial nerves II through XII intact. Normal speech. Results - Labs CBC & Chem 7: 01/24/18 16:49 01/24/18 16:49 Labs: Laboratory Results - last 24 hr 01/24/18 01/24/18 01/24/18 16:49 16:49 16:49 WBC 3.8 L RBC 4.13 Hgb 12.1 POC Hgb (Calc) Hct 35.7 POC Hct MCV 86.4 MCH 29.4 MCHC 34.0 RDW 12.9 Plt Count 146 L MPV 8.8 Neut % (Auto) 34.7 Lymph % (Auto) 40.1 [place] % (Auto) 16.0 H Eos % (Auto) 8.5 H Baso % (Auto) 0.7 Neut # (Auto) 1.3 L Lymph # (Auto) 1.5 [place] # (Auto) 0.6 Eos # (Auto) 0.3 Baso # (Auto) 0.0 WBC Differential . Differential Comment Auto diff final PT 10.0 INR 1.0 APTT 26.1 POC Sodium Sodium 143 POC Potassium Potassium 3.6 POC Chloride Chloride 106 Carbon Dioxide 30.1 Anion Gap 7 POC BUN BUN 13 Creatinine 0.59 POC Creatinine Estimated GFR Greater than 89 POC Glucose Random Glucose 93 Calcium 8.3 L Total Creatine Kinase 41 Troponin I Less than 0.02 L Beta HCG, Quant 10 H Urine Color Urine Clarity Urine pH Ur Specific [place] Urine Protein Urine Glucose (UA) Urine Ketones Urine Occult Blood Urine Nitrate Urine Bilirubin Urine Urobilinogen Ur Leukocyte Esterase Urine RBC Urine WBC Ur Squamous Epith Cells Urine Mucus Micro UA Comment Ur Microscopic Review Urine Culture Comments 01/24/18 01/24/18 01/24/18 16:49 18:47 20:00 WBC RBC Hgb POC Hgb (Calc) 11.2 L Hct POC Hct 33.0 L MCV MCH MCHC RDW Plt Count MPV Neut % (Auto) Lymph % (Auto) [place] % (Auto) Eos % (Auto) Baso % (Auto) Neut # (Auto) Lymph # (Auto) [place] # (Auto) Eos # (Auto) Baso # (Auto) WBC Differential Differential Comment PT INR APTT POC Sodium 144 Sodium POC Potassium 3.6 Potassium POC Chloride 100 L Chloride Carbon Dioxide Anion Gap POC BUN 12 BUN Creatinine POC Creatinine 0.7 Estimated GFR POC Glucose 86 84 Random Glucose Calcium Total Creatine Kinase Troponin I Beta HCG, Quant Urine Color Straw Urine Clarity Clear Urine pH 7.0 Ur Specific [place] 1.011 Urine Protein Negative Urine Glucose (UA) Negative Urine Ketones Negative Urine Occult Blood Negative Urine Nitrate Negative Urine Bilirubin Negative Urine Urobilinogen Less than 2 Ur Leukocyte Esterase Trace H Urine RBC Less than 1 Urine WBC 2 Ur Squamous Epith Cells <1 Urine Mucus Few H Micro UA Comment Culture not ind Ur Microscopic Review Not Reportable Urine Culture Comments Culture not ind - Imaging Impressions Head CT 01/24/18 18:50 CONCLUSION: 1. Negative noncontrast CT brain. Report was called to Dr. Hernandez at 7:05 PM Chest X-Ray 01/24/18 18:51 CONCLUSION: No acute cardiopulmonary disease. Caprini VTE Risk Assessment Caprini VTE Risk Assessment: No/Low Risk (score <= 1) Caprini Risk Assessment Model: Point Value = 1 Point Value = 2 Point Value = 3 Point Value = 5 Age 41-60 Minor surgery BMI > 25 kg/m2 Swollen legs Varicose veins or History of unexplained or recurrent spontaneous Oral contraceptives or hormone replacement Sepsis (< 1 month) Serious lung disease, including pneumonia (< 1 month) Abnormal pulmonary function Acute myocardial infarction Congestive heart failure (< 1 month) History of inflammatory bowel disease Medical patient at bed rest Age 61-74 Arthroscopic surgery Major open surgery (> 45 min) Laparoscopic surgery (> 45 min) Malignancy Confined to bed (> 72 hours) Immobilizing plaster cast Central venous access Age >= 75 History of VTE Family history of VTE Factor V Leiden Prothrombin [id number] Lupus anticoagulant Anticardiolipin antibodies Elevated serum homocysteine Heparin-induced thrombocytopenia Other congenital or acquired thrombophilia Stroke (< 1 month) Elective arthroplasty Hip, pelvis, or leg fracture Acute spinal cord injury (< 1 month) Prophylaxis Regimen: Total Risk Factor Score Risk Level Prophylaxis Regimen 0-1 Low Early ambulation 2 Moderate Order ONE of the following: *Sequential Compression Device (SCD) *Heparin 5000 units SQ BID 3-4 Higher Order ONE of the following medications: *Heparin 5000 units SQ TID *Enoxaparin/Lovenox 40 mg SQ daily (WT < 150 kg, CrCl > 30 mL/min) *Enoxaparin/Lovenox 30 mg SQ daily (WT < 150 kg, CrCl > 10-29 mL/min) *Enoxaparin/Lovenox 30 mg SQ BID (WT < 150 kg, CrCl > 30 mL/min) AND/OR *Sequential Compression Device (SCD) 5 or more Highest Order ONE of the following medications: *Heparin 5000 units SQ TID (Preferred with Epidurals) *Enoxaparin/Lovenox 40 mg SQ daily (WT < 150 kg, CrCl > 30 mL/min) *Enoxaparin/Lovenox 30 mg SQ daily (WT < 150 kg, CrCl > 10-29 mL/min) *Enoxaparin/Lovenox 30 mg SQ BID (WT < 150 kg, CrCl > 30 mL/min) AND *Sequential Compression Device (SCD) Assessment and Plan - Plan Assessment/plan: 1. Altered mental status/right sided weakness Head CT negative Patient reports she is unable to move her right upper extremity however is able to directed during a fall from mid air Neurology consulted, will defer further imaging to their recommendations Possibility of psychiatric component cannot be excluded, previous evaluation by psych recommends outpatient psychotherapy for possible Munchausen versus factitious disorder Patient reports right-sided upper and lower extremity pain, avoid opiates - Tylenol and lidocaine patch ordered PT 2. MS Neurology consulted as above Follow up as outpatient with Dr. Frazier 3. CHF Continue digoxin and Lasix FEN Cardiac diet Electrolytes: Monitor and replete as needed
[2018-01-25] VITALS: TEMP 97.9
[2018-01-25 04:39] VITALS: BP 106/59; PULSE 75; RESP 1; O2SAT 96
[2018-01-25] MEDS ORDERED: Digoxin 125 MCG Tablet PO SCH (09:00)
--- NOTE | 2018-01-25 09:25 | P.AMA ---
AMA Note Recommended Treatment Course: Went in to see patient, she is getting dressed. Indicates she is going home. States she has not been seen by a physician, informed that she was seen by Dr. Farley last night. She does not understand why her son call EVAC, there is nothing wrong with her. Indicates that she was not having a seizure nor she had a stroke. She is complaining of back pain, indicates that this is MS exacerbation and is requesting Dilaudid. States she follows up with MS specialist at [facility]. Pt. is awake and oriented, she is moving well, getting dressed. No focal deficits noted. Doesn't want to stay in hospital. Informed to return to hospital if symptoms re-occurred AMA Statement: Patient Rand Fry has decided to leave the hospital against medical advice. This patient has the capacity to refuse care and understands the risks of leaving, including permanent disability and/or , and has had an opportunity to ask questions about his/her condition. The patient has been informed that he/she may return for care at any time, and follow up has been arranged/advised. Discharge Disposition: 07 Against Medical Advice Patient Condition on Discharge: Stable
--- NOTE | 2018-01-25 12:31 | ECG ---
Date Performed: 01/24/2018 Time Performed: 18:49:56 PTAGE: 47 years EKG: ELECTRONIC ATRIAL PACEMAKER MARKED LEFT AXIS DEVIATION ABNORMAL ECG PREVIOUS TRACING : 10/12/2017 01.40 DOCTOR: Channing Franks Interpretating Date/Time 01/25/2018 12:30:27
== END 2018-01-25 08:50 | disposition left against medical advice (07) ==
LOC: NEDA 18:44 → NEPE 18:44 → NEPHCDU 23:20
PROVIDERS: ADMIT Internal Medicine; ATTEND Internal Medicine